=== PATIENT | male | born 1945 | race Caucasian/White ===

== ENCOUNTER 2024-10-09 15:55 | Inpatient (IN) | payer MEDICARE, SELFPAY ==
[2024-10-09] VITALS (18 sets, daily range): BP systolic 101–120; BP diastolic 54–73; PULSE 87–107; RESP 13–25; TEMP 36.4–36.8; O2SAT 89–100; BMI 40.6
--- NOTE | ~2024-10-09 | US_ITS ---
Renal-Bladder ultrasound Clinical History: Left kidney soft tissue density seen on CT Technique: Real-time sonographic imaging of the kidneys and urinary bladder was performed. COMPARISON: CT dated 10/09/2024 Findings: The right kidney measures 10.0 cm in length and the left kidney measures 10.0 cm. There is no hydronephrosis or renal calculus identified. Renal cortical echogenicity is within normal limits. There is a 4.8 x 3.5 x 4.4 cm left lower pole renal mass, not clearly cystic.. The urinary bladder is moderately distended at the time of this exam. No intraluminal echoes are iden tified. No abnormal wall thickening is seen. Impression: 4.8 cm left lower pole renal mass, not definitively cystic. Pre and postcontrast CT or MR recommended to further evaluate. Reviewed, dictated and finalized at [facility]. Impression: 4.8 cm left lower pole renal mass, not definitively cystic. Pre and postcontras t CT or MR recommended to further evaluate.
--- NOTE | ~2024-10-09 | XR_ITS ---
XR chest 1V Ordering provider: Rajinder Comer MD History: 78 years Male with . weakness . Comparison: None. FINDINGS: MEDIASTINUM: The cardiac silhouette is moderately enlarged. Congestive acro. LUNGS: No effusions or pneumothorax. Bilateral interstitial thickening suggestive of pulmonary edema versus pneumonitis. Clinical correlation advised. OTHER: No free air under the diaphragm. Degenerative changes of the spine. IMPRESSION: Cardiomegaly with cardiac decompensation and pulmonary edema. Overlying pneumonitis is not excluded. Reviewed, dictated and finalized at location [facility] IMPRESSION: Cardiomegaly with cardiac decompensation and pulmonary edema. Overlying pneumon itis is not excluded.
--- NOTE | ~2024-10-09 | CT_ITS ---
CT diagnostic chest wo con Ordering provider: Rajinder Comer MD History: 78 years Male with . Concern for pneumonia . Comparison: None. Technique: CT chest without IV contrast. Radiation reduction technique utilized.The dose-length product was 886.55 mGy-cm. FINDINGS: VISUALIZED THORACIC INLET: Normal. MEDIASTINUM: Aorta/coronary arteries: Mild atheromatous disease. Ascending aorta measures 3.7 cm. Heart/other: The heart is not enlarged. Lymph nodes: No mediastinal or hilar adenopathy. 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 LUNGS: Interstitial thickening is seen in the lower lobes which is partly due to dependent atelectati c changes with pneumonitis less likely. Focal atelectasis versus pneumonia in the lingula. No pulmona ry nodules or masses. No effusions. No pneumothorax. VISUALIZED UPPER ABDOMEN: Cholelithiasis. Small sliding hiatus hernia. Atrophic pancreas. Soft tissue density in the left kidney which is possibly a cyst. Ultrasound evaluation advised. Otherwise, the v isualized upper abdomen is normal. MUSCULOSKELETAL: Soft tissues: The superficial soft tissues are normal. Bones: Age appropriate degenerative changes of the spine. IMPRESSION: 1. Dependent atelectatic changes in the lower lobes with possibility of a pneumonitis cannot be excl uded. 2. Focal atelectasis versus pneumonia in the lingula. 3. Cholelithiasis 4. Soft tissue density in the left kidney ultrasound evaluation advised. 5. Small sliding hiatus hernia. Reviewed, dictated and finalized at location [facility] IMPRESSION: 1. Dependent atelectatic changes in the lower lobes with possibility of a pneu monitis cannot be excluded. 2. Focal atelectasis versus pneumonia in the lingula. 3. Cholelithiasis 4. Soft tissue density in the left kidney ultrasound evaluation advised. 5. Small sliding hiatus hernia.
--- NOTE | 2024-10-09 16:00 | ECG_ITS ---
Test Date: 2024-10-09 16:06:47 Measurements Intervals [place] Rate: 92 P: 0 MD: 0 QRS: 63 QRSD: 144 T: 11 QT: 407 QTc: 504 Interpretive Statements ATRIAL FIBRILLATION WITH ABERRANT CONDUCTION RIGHT BUNDLE BRANCH BLOCK [120+ ms QRS DURATION, UPRIGHT V1, 40+ ms S IN I/aVL/V4/V5/V6] ABNORMAL ECG No previous ECG available for comparison Electronically Signed On 10-09-2024 16:09:43 VAN LOADER by Je Valenzuela M.D.
[2024-10-09 16:23] LABS: Basophils Percent Auto 0.6 % (0.2-1.2); Eosinophils Absolute Auto 0.4 K/mm3 (0-0.3); Eosinophils Percent Auto 5.8 % (0-4.4); Hematocrit 42.5 % (42.0-52.0); Hemoglobin 13.5 g/dL (14.0-18.0); Immature Granulocyte Absolute 0.02 K/mm3 (0.00-0.031); Immature Granulocyte Percent A 0.3 % (0-0.5); Lymphocytes Absolute Auto 1.87 K/mm3 (0.9-3.2); Lymphocytes Percent Auto 27.9 % (18.3-44.2); Mean Corpuscular HGB Conc 31.8 g/dl (32-36); Mean Corpuscular Hemoglobin 30.1 pg (26-34); Mean Corpuscular Volume 94.7 fl (80-100); Mean Platelet Volume 10.2 fl (7.4-10.4); Monocytes Absolute Auto 0.9 K/mm3 (0.1-0.6); Monocytes Percent Auto 13.4 % (2.6-8.5); Neutrophils Absolute Auto 3.5 K/mm3 (1.3-6.7); Platelet Count Result 173 k/mm3 (150-375); Red Blood Count 4.49 M/mm3 (4.6-6.20); Red Cell Distribution Width 13.5 % (11.5-14.5); White Blood Count 6.7 K/mm3 (4.5-10.0)
[2024-10-09 16:24] LABS: Add Urine Microscopic? NO; Appearance Urine Clear (Clear); Bilirubin Urine Negative (Negative); Blood Urine Negative (Negative); Color Urine Yellow (Yellow); Glucose Urine UA Negative (Negative); Ketones Urine Negative (Negative); Leukocyte Esterase Ur Negative LEU/UL (Negative); Nitrate Urine Negative (Negative); Protein Urine Negative (Negative); Specific Grav Ur 1.014 (1.001-1.035); Urobilinogen Urine 0.2 mg/dL (<2.0)
--- OUTSIDE RECORDS SUMMARY | 2024-10-09 16:35 | XMS_ITS | Encounter Summary ---
Author Organization [facility] Address [address] [place] [address] Phone Care Team Providers Care Cold Header Name Role Phone Je Kerns MD Primary Care Provider [phone] Booker Sears MD Primary Care Provider [phone] Clemente Gutierrez MD Unavailable Adrian Carr MD Unavailable Shi Farmer Unavailable Unavailable Encounter Details Date Type Department Care Team (Late st Contact Info) Description 04/26/2022 Nursing Facility [facility] [address] [place] [address] Beka Ceron MD [address] [place] [address] Social History Tobacco Use Types Packs/Day Years Used Date Smoking Tobacco: Never Smokeless Tobacco: Never Alcohol Use Standard Drinks/Week Comments Never 0 (1 standard drink = 0.6 oz pur e alcohol) AUDIT-C Answer Date Recorded Q1: How often do you have a drink containing alc ohol? Never 01/14/2020 Average Number of Drinks Not on file 020 Frequency of Binge Drinking Not on file 01/02 PHQ-2 Answer Date Recorded Total Score - Questions 1-9 0 09/04 Sex and Gender Information Value Date Recorded Sex Assigned at Not on file Legal Sex Male 10:20 PM CDT Gender Identity Not on file Sexual Orientation Not on file documented as of this encounter H&P Notes * Mane Figueredo - 04/26/2022 12:29 PM CDT [facility] History and Physical Chief Complaint: fall, generalized weakness requiring rehabilitation. HPI: Saw Christiansen is a 76 y.o. male who is transferred to [facility] from [facility] for post acute care rehabilitation. The patient was admitted to the hospital for generalized weakness due to underlying acute cystitis. His acute condition was treated at the hospital and he was referred to the SNF to improve his strength and mobilization with PT and OT. At the time of this assessment the pt stated that he was not in any pain and that he has been doing well in therapy. He also reported normal appetite and bowel movements. Allergies: is allergic to penicillins. Past Medical History: He has a past medical history of AAA (abdominal aortic aneurysm) ([facility]), Adenomatous colon polyp, C. difficile colitis, Central obesity, CKD (chronic kidney disease) stage 3, UMV58-08 ml/min ([facility]), DM (diabetes mellitus) ([facility]), HLD (hyperlipidemia), HTN (hypertension), and Renal mass. Surgical History: has a past surgical history that includes Ankle Surgery (1972); Rotator Cuff Repair; Colonoscopy (); and Colonoscopy (N/A, 03/03/2020). Social History: reports that he has never smoked. He has never used smokeless tobacco. He reports that he does not drink alcohol and does not use drugs. Family History: family history includes Congestive Heart Failure in his father and mother. Review of Systems: All systems reviewed and are negative except what is mentioned in HPI. Physical Exam: Vital Signs: All vitals were reviewed in the facility EMR and are stable. Exam: General: Well developed, well nourished, in no distress Skin: Normal appearance, normal turgor, no rashes HEENT: Normocephalic, atraumatic, no flaring Eyes: nonicteric, intact extra occular movement, PERRL Neck: normal, supple, no lymphadenopathy Heart: regular rate and rhythm, S1, S2 normal, no murmur, click, rub or gallop Lungs: clear to ausculation, normal respirations, normal precautions Abdominal: soft, non-tender; bowel sounds normal; no masses, no organomegaly : external genitalia normal in appearance Extremities: no deformities, joint mobility appears intact, no clubbing Neuro: Non-focal, CN intact, sensory and motor intact Psychological: alert and oriented X3, appropriate mood and affect, Intact judgement and memory Data Review: Lab Results: Lab Results Component Value Date WBC 6.29 03/21/2022 HEMOGLOBIN 13.2 03/21/2022 HEMATOCRIT 41.2 03/21/2022 PLATELETCNT 171 03/21/2022 MCV 93.8 03/21/2022 Lab Results Component Value Date SODIUM 140 03/21/2022 POTASSIUM 4.1 03/21/2022 CHLORIDE 106 03/21/2022 CO2VEN 20 (L) 03/21/2022 GLUCOSE 100 (H) 03/21/2022 ANIONGAP 18.1 03/21/2022 BUN 32 (H) 03/21/2022 CREATININE 1.54 (H) 03/21/2022 CALCIUM 8.5 (L) 03/21/2022 Lab Results Component Value Date INR 1.3 (H) 03/03/2020 INR 1.3 (H) 03/01/2020 PTP 16.0 (H) 03/03/2020 PTP 16.0 (H) 03/01/2020 Assessment/Plan: 1. Flalls, generalized weakness and decreased balance and mobilization. He is to receive PT and OT at the SNF to improve his strength, balance, and mobilization back to baseline. 2. Acute cystitis. Resolved. Treatment course completed while at the hospital. No further intervention needed at this time. 3. DM Type 2. Currently controlled. Continue management with oral metformin and SSI and continue following a diabetic diet. Check blood glucose regularly and monitor A1C periodically. 4. HTN. BP currently stable. Continue amlodipine and benazepril. 5. BPH. Continue tamsulosin and oxybutynin. 6. CKD Stage 4. Avoid nephrotoxic agents. Continue to monitor the evolution of kidney functioning. 7. Constipation. Continue senna BID. 8. Hypothyroidism. Continue levothyroxine. Check TSH levels periodically. VTE Prophylaxis: Lovenox 40mg Q24h Advance Care Planning: Aggregate uwwo-re-rwmf time, greater than 16 minutes was spent discussing end-of-life care planning with patient/family and/or Power of Drafter Apprentice. Discussed CPR, Intubation, treatment goals, and Quality of life/Intensity of care. Patient desires CPR-Full Treatment IMane, acting as a scribe, am personally taking down the notes in the presence of Dr. Beka Ceron M.D. Take no action on this note until reviewed and authenticated by the physician. By: MANE FIGUEREDO, 04/26/2022, 12:29 PM CDT Primary Care Physician: Je Kerns MD . Cosigned by Beka Ceron MD at 05/03/2022 4:00 PM CDT Associated attestation - Beka Ceron MD - 05/03/2022 4:00 PM CDT I evaluated and examined the patient in the presence of scribe Mane Figueredo and discussed the physical findings and clinical assessment with her and reviewed the medical records and notes above and agree with the content and details of the note. 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 03/20/2022 COVID - 19 03/02/2023 03/02/2023 03/02/2023 10:3 2 PM CDT Respiratory Rule Out - RPA 03/04/2023 03/04/2023 0 03/04/2023 10:23 PM CDT COVID - 19 04/08/2023 04/08/2023 04/08/2023 2:08 PM CDT Assessment Noted Time PHQ-9 Depression Total Score: 0 10/31/19 21 2:24 PM CDT documented as of this encounter Care Teams Cold Header Relationship Specialty Start Date End Date [facility] [address] [place] [address] PCP - General Family Medicine 09/10/17 04/07/23 Booker Sears MD [address] [place] [address] PCP - General Internal Medicine 04/08/23 09/14/24 Clemente Gutierrez MD [address]2 [facility] [address] [place] [address] Consulting Physician Urological Surgery 05/21/23 Adrian Carr MD [address] [place] [address] Consulting Physician Pulmonary Disease 05/12/23 Shi Farmer Health Buffer Operator 08/06/24 08/09/24 documented as of this encounter
--- OUTSIDE RECORDS SUMMARY | 2024-10-09 16:35 | XMS_ITS | Encounter Summary ---
Author Organization [facility] Address [address] [place] [address] Phone Care Team Providers Care Driver Education Instructor Name Role Phone Je Kerns MD Primary Care Provider [phone] Booker Sears MD Primary Care Provider [phone] Clemente Gutierrez MD Unavailable Adrian Carr MD Unavailable Shi Farmer Unavailable Unavailable Encounter Details Date Type Department Care Team (Late st Contact Info) Description 09/10/2022 Nursing Facility [facility] [address] [place] [address] Ryan Dinero, PAC [address] [place], [place] [id number] Social History Tobacco Use Types Packs/Day Years [...] on file documented as of this encounter Progress Notes * Ryan Dniero, PAC - 09/10/2022 2:03 PM CST [facility] N[facility] PROGRESS NOTE Saw Christiansen is a 76 y.o. male at [facility] for long-term care. Was hospitalized at [facility] from March 20 through March 22 for generalized weakness and frequent falls, there was concern for UTI during hospitalization as urine culture grew outMRSA but this was felt to be asymptomatic bacteriuria. Was transferred to an outside fpc facility but ultimately did not regain enough ambulation to be discharged back to home so was transferred to this nursing facility on 04/19/2022 for long-term care and also to be with his who is a current long-term resident here. Subjective: Interval History: I am seeing the patient today for routine monthly assisted visit He is lying comfortably in bed says that he feels ???fine?? . No acute symptoms or concerns. Denies any pain or GI symptoms. Says he has good appetite. Nursing staff has no concerns about the patient. Past Medical History Positives Diagnosis Date ??? AAA (abdominal aortic aneurysm) ([facility]) ??? Adenomatous colon polyp ??? C. difficile colitis ??? Central obesity ??? CKD (chronic kidney disease) stage 3, GFR 30-59 ml/min ([facility]) ??? DM (diabetes mellitus) ([facility]) ??? HLD (hyperlipidemia) ??? HTN (hypertension) ??? Renal mass Family History Problem Relation Age of Onset ??? Congestive Heart Failure Mother ??? Congestive Heart Failure Father Social History Socioeconomic History ??? Marital status: Spouse name: Not on file ??? Number of children: Not on file ??? Years of education: Not on file ??? Highest education level: Not on file Occupational History ??? Not on file Tobacco Use ??? Smoking status: Never ??? Smokeless tobacco: Never Vaping Use ??? Vaping Use: Never used Substance and Sexual Activity ??? Alcohol use: Never ??? Drug use: No ??? Sexual activity: Not on file Other Topics Concern ??? Not on file Social History Narrative ??? Not on file Past Surgical History: Procedure Laterality Date ??? ANKLE SURGERY 1973 ??? COLONOSCOPY -2004 ??? COLONOSCOPY N/A 03/03/2020 Procedure: COLONOSCOPY - PROXIMAL TRANSVERSE COLON POLYP, RECTAL BIOPSIES, PSEUDOMEMBRANOUS COLITIS; Surgeon: Dajuan Garcia DO; Location: [facility] GI [facility]; Service: Gastroenterology ??? ROTATOR CUFF REPAIR Review of Systems: A 14 point comprehensive review of systems was negative except what is documented in interval history above. Objective: Exam: Vital Signs: B/P: 128/70 Pulse: 65 Respirations: 18 Temperature: 97.9 General: Well developed, well nourished, in no [...] bowel sounds normal; no masses, no organomegaly Extremities: no deformities, joint mobility appears intact, no clubbing Neuro: Non-focal, CN intact, sensory and motor intact Psychological: alert and oriented X3, appropriate mood and affect, Intact judgement and memory Lab Results: 03/21 during hospitalization, creatinine was 1.5, BUN 32, GFR 46 otherwise unremarkable. A1c was 5.5on 03/20. CBC unremarkable on 03/21. Imaging: PROCEDURE: DUPLEX SCAN OF AORTA LTD STATUS: Final INTERPRETATION: Reason for Study: I71.9 AORTIC ANEURYSM OF UNSPECIFIED SITE, WITHOUT RUPTURE Principal Result French Binder: LIDIA BEGUM ([id number]) Crm System Administrator: JOSE ALFREDO SANFORD (CJALAFF) Venue Coordinator Crm System Administrator: MABEL DUPLEX SCAN OF AORTA LTD FINDINGS: aneurysm. FINDINGS: Proximal 2.2 0.4 x 2.2 cm Mid4.5 x 4.5 cm. The distal aorta, right and left iliac arteries could not be seen. CONCLUSION: Aneurysmal dilatation in the midportion of the aorta. The distal aorta and iliac vessels are not seen. Blood flow within the proximal and mid aorta appear within normal limits. ELECTRONICALLY SIGNED BY LIDIA BEGUM M.D. 07/05/2022 5:53:31 AM ROTARY DRIER. Assessment/Plan: Hypothyroidism Continue levothyroxine Monitor thyroid levels periodically 09/10: Will check thyroid levels tomorrow along with baseline labs and A1c. Hypertension Continue amlodipine and benazepril Monitor blood pressures 09/10: Well controlled Abdominal aortic aneurysm CT from 04/18/2021 shows AAA measured at 4.7 cm. 07/24 - ultrasound from 07/05 showing AAA of 4.5 cm. No need for surgical consultation at this time. Repeat ultrasound annually. Surgical referral if aneurysm lester to 5.0 cm or greater Generalized weakness and deconditioning Receiving assisted care Is currently able to transition himself from the bed to the wheelchair without assistance. Needs assistance with toileting. Diabetes mellitus type 2 A1c of 5.5 on 03/20 Continue current regimen of metformin (will need to be adjusted if CKD progresses to stage IV.) Chronic kidney disease stage 3 Avoid nephrotoxic agents Monitor labs periodically BPH Continue Flomax and oxybutynin Well controlled VTE Prophylaxis: Activity I discussed advanced care planning with this patient. This note was dictated using [employer] fluency dictation system and there may be errors in rn endoscopy. Despite proof reading the note, there may be mistakes and I apologize for those. By: Ryan Dinero, AN, 09/10/2022 2:03 PM ROTARY DRIER RY DRIER documented in this encounter Plan of Treatment [...] documented as of this encounter Care Teams Driver Education Instructor Relationship Specialty Start Date End Date Je Kerns MD #2 [facility] [address] [place] [address] PCP - General Family Medicine 09/10/17 04/07/23 Booker Sears MD [address] [place] [address] PCP - General Internal Medicine 04/08/23 09/14/24 Clemente Gutierrez MD #2 [facility] [address] [place] [address] Consulting Physician Urological Surgery 05/21/23 Adrian Carr MD [address] [place] [address] Consulting Physician Pulmonary Disease 05/12/23 Shi Farmer Health Senior Engineering Specialist 08/06/24 08/09/24 documented as of this encounter
--- OUTSIDE RECORDS SUMMARY | 2024-10-09 16:35 | XMS_ITS | Encounter Summary ---
Author Organization [facility] Address [address] [place] [address] Phone Care Team Providers Care Adhesive Bandage Making Operator Name Role Phone Je Kerns MD Primary Care Provider [phone] Booker Sears MD Primary Care Provider [phone] Clemente Gutierrez MD Unavailable Adrian Carr MD Unavailable Shi Farmer Unavailable Unavailable Encounter Details Date Type Department Care Team (Late st Contact Info) Description 12/11/2022 Nursing Facility [facility] [address] [place] [address] Ryan Dinero, PAC [address] [place], [place] [address] Social History Tobacco Use Types Packs/Day Years [...] of this encounter Progress Notes * Ryan Dinero, PAC - 12/11/2022 12:20 PM CDT [facility] PROGRESS NOTE Saw Christiansen is a 77 y.o. male at [facility] for long-term care. Was hospitalized at [facility] from March 20 through March 22 for generalized weakness and frequent falls, there was concern for UTI during hospitalization as urine culture grew outMRSA but this was felt to be asymptomatic bacteriuria. Was transferred to an outside senior care facility but ultimately did not regain enough ambulation to be discharged back to home so was transferred to this nursing facility on 04/19/2022 for long-term care and also to be with his who is a current long-term resident here. Subjective: Interval History: Seeing patient for routine monthly usp visit. He is lying comfortably in bed. Says that he feels ???good?? . Denies any acute pain or any medicalsymptoms at this time. His lower extremity edema is improving. He is not having any shortness of breath. Has stress test scheduled for later this week as part of his preoperative clearance for his AAA repair. \ Past Medical History Positives Diagnosis Date ??? AAA (abdominal aortic aneurysm) (HCC) ??? Adenomatous colon polyp ??? C. difficile colitis ??? Central obesity ??? CKD (chronic kidney disease) stage 3, GFR 30-59 ml/min (HCC) ??? DM (diabetes mellitus) (H[facility]) ??? HLD (hyperlipidemia) ??? HTN (hypertension) ??? [...] PSEUDOMEMBRANOUS COLITIS; Surgeon: Dajuan Garcia DO; Location: [facility] GI [facility]; Service: Gastroenterology ??? ROTATOR CUFF REPAIR Review of Systems: A 14 point comprehensive review of systems was negative except what is documented in interval history above. Objective: Exam: Vital Signs: B/P: 128/68 Pulse: 76 Respirations: 16 Temperature: 97 General: Well developed, well nourished, in no [...] deformities, joint mobility appears intact, no clubbing - 5/10: Nonpitting edema ofboth lower extremities up to proximal lorenzo Neuro: Non-focal, CN intact, sensory and motor intact Psychological: alert and oriented X3, appropriate mood and affect, Intact judgement and memory Lab Results: 03/21 during hospitalization, creatinine was 1.5, BUN 32, GFR 46 otherwise unremarkable. A1c was 5.5on 03/20. CBC unremarkable on 03/21. 09/11/2022: CMP with glucose 154, creatinine 1.5, BUN 40 otherwise unremarkable. CBC with hemoglobin 13.6 otherwise unremarkable. A1c 5.3. Thyroid levels within normal limits. Imaging: PROCEDURE: DUPLEX SCAN OF AORTA LTD STATUS: Final for INTERPRETATION: Reason for Study: I71.9 AORTIC ANEURYSM OF UNSPECIFIED SITE, WITHOUT RUPTURE Principal Result Oracle Apex Developer: LIDIA BEGUM ([id number]) Welder First Class: JOSE ALFREDO SANFORD (CJALAFF) Dishwasher Busser Welder First Class: MABEL DUPLEX SCAN OF AORTA LTD FINDINGS: [...] BY LIDIA BEGUM M.D. 07/05/2022 5:53:31 AM DELIVERY CREW MEMBER. Assessment/Plan: Acute mild Bilateral lower extremity edema 11/20: CHF verses venous insufficiency versus arrhythmia versus hypertension. Normal sinus rhythm today. Will start on low-dose furosemide with low-dose potassium supplementation. Already has cardiac workup scheduled for next month as part of preoperative clearance. 12/11: Improving. Continue current regimen. Abdominal aortic aneurysm CT from 04/18/2021 shows AAA measured at 4.7 cm. 11/20: Had cardiology follow-up with Dr. Betancur on 09/10/2022 who obtained results from CT abdomen on08/29/[address] Betancur are planning for stress test and echo and referral to Dr. García for possible EVAR. Will need to follow-up with but are after these tests are completed. Had follow-up with Dr. García, on 10/28/2022 who was planning on surgical intervention at [facility] was hospital once cleared by Dr. Betancur. 12/11: Has stress test tomorrow as part of preoperative clearance Renal mass On CT from 08/29/2022 a 4.7 x 3.7 cm left renal mass was incidentally found, Most likely representing a cyst. Will need to compared to previous studies, may need another CT for repeat imaging. -on medical record review, CT of abdomen on 04/18/2021 showed left renal mass of [address] of abdomen from 03/01/2020 showed 4.5 cm left renal mass. So This appears to be a stable benign mass. Diabetes mellitus type 2 A1c of 5.5 on 03/20 Continue current regimen of metformin (will need to be adjusted if CKD progresses to stage IV.) 10/11: A1c of 5.3 last month. Considering this will discontinue metformin and recheck A1c in about 3months. Hypothyroidism Continue levothyroxine Monitor thyroid levels periodically Thyroid levels within normal limits on 09/11/2022 Hypertension Continue amlodipine and benazepril Monitor blood pressures 10/11: Well controlled Generalized weakness and deconditioning Receiving usp care Is currently able to transition himself from the bed to the wheelchair without assistance. Needs assistance with toileting. Chronic kidney disease stage 3 Avoid nephrotoxic agents Monitor labs periodically BPH Continue Flomax and oxybutynin Well controlled VTE Prophylaxis: Activity I discussed advanced care planning with this patient. This note was dictated using [employer] fluency dictation system and there may be errors in pricer bagger. Despite proof reading the note, there may be mistakes and I apologize for those. By: Ryan Dinero, PAC, 12/11/2022 12:20 PM CDT documented in this encounter Plan of Treatment [...] documented as of this encounter Care Teams Adhesive Bandage Making Operator Relationship Specialty Start Date End Date Je Kerns MD #[address] [address] PCP - General Family Medicine 09/10/17 04/07/23 Booker Sears MD [address] [place] [address] PCP - General Internal Medicine 04/08/23 09/14/24 Clemente Gutierrez MD [address] [address] Consulting Physician Urological Surgery 05/21/23 Adrian Carr MD [address] [place] [address] Consulting Physician Pulmonary Disease 05/12/23 Shi [facility] Operations Center Technician 08/06/24 08/09/24 documented as of this encounter
--- OUTSIDE RECORDS SUMMARY | 2024-10-09 16:35 | XMS_ITS | Encounter Summary ---
Author Organization [facility] Address [address] [place] [address] Phone Care Team Providers Care Meter Shop Superintendent Name Role Phone Je Kerns MD Primary Care Provider [phone] Booker Sears MD Primary Care Provider [phone] Clemente Gutierrez MD Unavailable Adrian Carr MD Unavailable Shi Farmer Unavailable Unavailable Reason for Visit * Reason Comments Medication Refill Encounter Details Date Type Department Care Team (Late st Contact Info) Description 08/27/2020 Refill [facility] [address] [id number] Je Kerns MD #[address] [address] Medication Refill Social History Tobacco Use Types Packs/Day Years Used Date Smoking Tobacco: Never Smokeless Tobacco: Never Alcohol Use Standard Drinks/Week Comments Never 0 (1 standard drink = 0.6 oz pur e alcohol) AUDIT-C Answer Date Recorded Q1: How often do you have a drink containing alc ohol? Never 01/14/2020 Average Number of Drinks Not on file 06/12/2 020 Frequency of Binge Drinking Not on file 01/02 PHQ-2 Answer Date Recorded Total Score - Questions 1-9 0 12/03 Sex and Gender Information Value Date Recorded Sex Assigned at Not on file Legal Sex Male 10:20 PM CDT Gender Identity Not on file Sexual Orientation Not on file documented as of this encounter Miscellaneous Notes * Telephone Encounter - Je Kerns MD - 08/28/2020 12:02 PM CST Prescription approved. Please call in CTOR OF TEENAGE ACTIVITIES * Telephone Encounter - Lillian Goff RN - 08/28/2020 11:42 AM CST Per nursing clinical judgement, provider to review and approve the medication(s) order(s) if appropriate. 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 COVID - 19 03/20/2022 03/20/2022 03/21/2022 9:19 AM CDT 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 03/20/2022 COVID - 19 03/02/2023 03/02/2023 03/02/2023 10:3 2 PM CDT Respiratory Rule Out - RPA 03/04/2023 03/04/2023 0 03/04/2023 10:23 PM CDT COVID - 19 04/08/2023 04/08/2023 04/08/2023 2:08 PM CDT Assessment Noted Time PHQ-9 Depression Total Score: 0 12/22/19 8:47 AM CDT documented as of this encounter Care Teams Meter Shop Superintendent Relationship Specialty Start Date End Date Je Kerns MD #2 [facility] [address] [place] [address] PCP - General Family Medicine 09/10/17 04/07/23 Booker Sears MD [address] [place] [address] PCP - General Internal Medicine 04/08/23 09/14/24 Clemente Gutierrez MD #[address] [facility] [address] [place] [address] Consulting Physician Urological Surgery 05/21/23 Adrian Carr MD #2 [place] [phone] Consulting Physician Pulmonary Disease 05/12/23 Shi Farmer Health Continuous Mining Machine Lode Miner 08/06/24 08/09/24 documented as of this encounter
--- OUTSIDE RECORDS SUMMARY | 2024-10-09 16:35 | XMS_ITS | Encounter Summary ---
Author Organization [facility] Address [address] [place] [address] Phone Care Team Providers Care Wastewater Process Engineer Name Role Phone Je Kerns MD Primary Care Provider [phone] Booker Sears MD Primary Care Provider [phone] Clemente Gutierrez MD Unavailable Adrian Carr MD Unavailable Shi Farmer Unavailable Unavailable Encounter Details Date Type Department Care Team (Late st Contact Info) Description 12/18/2022 Nursing Facility [facility] [address] [place] [address] Rayn Dinero, PAC [address] [place], [place] [id number] Social History Tobacco Use Types Packs/Day Years [...] this encounter Progress Notes * Ryan Dinero, AN - 12/18/2022 2:32 PM CDT [facility] DISCHARGE SUMMARY Name: Saw Christiansen Age: 77 y.o. : 1945 Attending Physician: No att. providers found Admission Date/Time: (Not on file) Expected Discharge Date: Primary Care Physician: Je Kerns MD Discharging Provider: AN Bynum INSTRUCTIONS FOR PHYSICIANS ON FOLLOW UP AFTER DISCHARGE: Follow-up with PCP in 1-2 weeks Discharge Instructions: Discharge Condition: not changed Disposition: Custodial Diet: Cardiac Diet Activity: activity as tolerated Discharge Diagnoses: Generalized weakness and deconditioning, hypertension, hyperlipidemia, chronickidney disease stage 3, BPH, diabetes mellitus type 2, abdominal aortic aneurysm Admitting Diagnoses: Generalized weakness and deconditioning, hypertension, hyperlipidemia, chronickidney disease stage 3, BPH, diabetes mellitus type 2 SKILLED CARE COURSE: Saw Christiansen was admitted to [facility] facility for acute care rehabilitation. Prior to coming to this facility he was hospitalized at [facility] from March 20 through March 22 for generalized weakness and frequent falls, there was concern for UTI during hospitalization as urine culture grew out MRSA but this was felt to be asymptomatic bacteriuria. Was transferred to an outside usp facility but ultimately did not regain enough ambulation to be discharged back to home so was transferred to this nursing facility on 04/19/2022 for long-term care and also to be with his who is a current long-term resident here. While at the rehabilitation facility, the patient received assisted care. His stay the facility was overall uncomplicated. Earlier this year he was referred to Cardiology for follow-up of his AAA. He is being followed by Dr. Betancur who just had stress test done on 12/12/2022 and has granted cardiac clearance. Will need tofollow-up with vascular surgeon Dr. García for intervention. Patient is currently lying comfortably in bed. Says he feels ???good?? . He has no acute symptoms or concerns this time. Chart review shows that his follow-up visit with the vascular surgeon has not been made as of yet. Had a long conversation with the patient that since he is going to be transferring facilities he may have to follow-up on this himself. Also informed his about this as well. Exam Day of Discharge: Vital Signs: B/P: 128/68 Pulse: 70 Respirations: 18 Temperature: 97 General: Well developed, well nourished, [...] and affect, Intact judgement and memory Lab / Imaging Review: Lab Results: 03/21 during hospitalization, creatinine was [...] OF UNSPECIFIED SITE, WITHOUT RUPTURE Principal Result Geothermal Powerplant Mechanic Helper: LIDIA BEGUM ([id number]) Soils Technician: JOSE ALFREDO SANFORD (CJALAFF) Weaver Hand Loom Soils Technician: MABEL DUPLEX SCAN OF AORTA LTD FINDINGS: [...] BY LIDIA BEGUM M.D. 07/05/2022 5:53:31 AM CHECK PILOT. DISCHARGE PLAN: Patient will be transferring to [facility] in [facility]. Tentative discharge date is 12/27/2022. Will be moving there for long-term care and his will be going there with him. Understands to continue all current medications as directed and follow up with PCP/house in 1-2 weeks. Follow-up with vascular surgery Dr. García without fail. I have spent time coordinating care for this usp facility discharge: Greater than 30 minutes spent in coordinating care This note was dictated using [employer] fluency dictation system and there may be errors in sponge clipper. Despite proof reading the note, there may be mistakes and I apologize for those. Signed: AN Bynum, 12/18/2022, 2:32 PM CDT documented in this encounter Plan [...] documented as of this encounter Care Teams Wastewater Process Engineer Relationship Specialty Start Date End Date Je Kerns MD #2 [facility] [address] [place] [address] PCP - General Family Medicine 09/10/17 04/07/23 Booker Sears MD [address] [place] [address] PCP - General Internal Medicine 04/08/23 09/14/24 Clemente Gutierrez MD #2 [facility] [address] [place] [phone] Consulting Physician Urological Surgery 05/21/23 Adrian Carr MD #2 [facility] [place] [phone] Consulting Physician Pulmonary Disease 05/12/23 Shi Farmer Health Inspector Mechanical 08/06/24 08/09/24 documented as of this encounter
--- OUTSIDE RECORDS SUMMARY | 2024-10-09 16:35 | XMS_ITS | Encounter Summary ---
Author Organization [facility] Address [address] [place] [address] Phone Care Team Providers Care Wood And Wood Products Labourer Name Role Phone Je Kerns MD Primary Care Provider [phone] Booker Sears MD Primary Care Provider [phone] Clemente Gutierrez MD Unavailable Adrian Carr MD Unavailable Shi Farmer Unavailable Unavailable Encounter Details Date Type Department Care Team (Late st Contact Info) Description 06/05/2022 Nursing Facility [facility] [address] [place] [address] Ryan Dinero, PAC [address] [place], [place] [address] Social History Tobacco Use Types Packs/Day Years [...] Progress Notes * Ryan Dinero, PAC - 06/05/2022 1:07 PM CDT [facility] PROGRESS NOTE Saw Christiansen is a 76 y.o. male at [facility] for long-term care. Was hospitalized at [facility] from March 20 through March 22 for generalized weakness and frequent falls, there was concern for UTI during hospitalization as urine culture grew outMRSA but this was felt to be asymptomatic bacteriuria. [facility] but ultimately did not regain enough ambulation to be discharged back to home so was transferred to this nursing facility on 04/19/2022 for long-term care and also to be with his who is a current long-term resident here. Subjective: Interval History: I am seeing patient for routine monthly assisted visit He is lying comfortably in bed. Denies any acute symptoms or concerns. Says he feels ???fine?? . Past Medical History Positives Diagnosis Date ??? AAA (abdominal aortic aneurysm) ([facility]) ??? Adenomatous colon polyp ??? C. difficile colitis ??? Central obesity ??? CKD (chronic kidney disease) stage 3, GFR 30-59 ml/min ([facility]) ??? DM (diabetes mellitus) ([facility]) ??? HLD (hyperlipidemia) ??? HTN (hypertension) ??? [...] file Tobacco Use ??? Smoking status: Never Smoker ??? Smokeless tobacco: Never Used Vaping Use ??? Vaping Use: Never used Substance and Sexual Activity ??? Alcohol use: Never ??? Drug use: No ??? Sexual activity: Not on file Other Topics Concern ??? Not on file Social History Narrative ??? Not on file Past Surgical History: Procedure Laterality Date ??? ANKLE SURGERY 1973 ??? COLONOSCOPY ??? COLONOSCOPY N/A 03/03/2020 Procedure: COLONOSCOPY - PROXIMAL TRANSVERSE COLON POLYP, RECTAL BIOPSIES, PSEUDOMEMBRANOUS COLITIS; Surgeon: Dajuan Garcia DO; Location: [facility]; Service: Gastroenterology ??? ROTATOR CUFF REPAIR Review of Systems: A 14 point comprehensive review of systems was negative except what is documented in interval history above. Objective: Exam: Vital Signs: B/P: 116/66 Pulse: 68 Respirations: 18 Temperature: 98 General: Well developed, well nourished, in no [...] 5.5on 03/20. CBC unremarkable on 03/21. Imaging: None Assessment/Plan: Abdominal aortic aneurysm CT from 04/18/2021 shows AAA measured at 4.7 cm. 06/05 - patient says he is not followed by specialist for this. Referral placed to Dr. Betancur (cardiology). Generalized weakness and deconditioning Receiving assisted care Is currently able to transition himself from the bed to the wheelchair without assistance. Needs assistance with toileting. Diabetes mellitus type 2 A1c of 5.5 on 03/20 Continue current regimen of metformin (will need to be adjusted if CKD advantages to stage IV.) Chronic kidney disease stage 3 Avoid nephrotoxic agents Monitor labs periodically Hypothyroidism Continue levothyroxine Monitor thyroid levels periodically BPH Continue Flomax and oxybutynin Well controlled Hypertension Continue amlodipine and benazepril Monitor blood pressures Well controlled VTE Prophylaxis: Activity I discussed advanced care planning with this patient. This note was dictated using [employer] fluency dictation system and there may be errors in executive director of nursing. Despite proof reading the note, there may be mistakes and I apologize for those. By: Ryan Dinero, PAC, 06/05/2022 1:08 PM CDT documented in this encounter Plan [...] documented as of this encounter Care Teams Wood And Wood Products Labourer Relationship Specialty Start Date End Date Je Kerns MD #2 [facility] [address] [place] [address] PCP - General Family Medicine 09/10/17 04/07/23 Booker Sears MD [address] [place] [address] PCP - General Internal Medicine 04/08/23 09/14/24 Clemente Gutierrez MD #2 [facility] [address] [place] [address] Consulting Physician Urological Surgery 05/21/23 Adrian Carr MD #2 [place] [phone] Consulting Physician Pulmonary Disease 05/12/23 Shi Farmer [facility] Hospital Director 08/06/24 08/09/24 documented as of this encounter
--- OUTSIDE RECORDS SUMMARY | 2024-10-09 16:35 | XMS_ITS | Encounter Summary ---
Author Organization [facility] Address [address] [place] [address] Phone Care Team Providers Care Test Automation Architect Name Role Phone Je Kerns MD Primary Care Provider [phone] Booker Sears MD Primary Care Provider [phone] Clemente Gutierrez MD Unavailable Adrian Carr MD Unavailable Shi Farmer Unavailable Unavailable Reason for Visit * Reason Comments Medication Refill Encounter Details Date Type Department Care Team (Late st Contact Info) Description 02/05/2021 Refill [facility] - Family Medicine [facility] [address] [place] [address] Je Kerns MD #[address] [address] Medication Refill Social History Tobacco Use Types [...] Recorded Total Score - Questions 1-9 0 10/03 Sex and Gender Information Value Date Recorded Sex Assigned at Not on file Legal Sex Male 10:20 PM CDT Gender Identity Not on file Sexual Orientation Not on file documented as of this encounter Miscellaneous Notes * Telephone Encounter - Je Kerns MD - 02/06/2021 1:10 PM CDT Prescription approved. Please call in * Telephone Encounter - Sheila Loera RN - 02/06/2021 1:09 PM CDT Medication failed the protocol, provider to review and approve the medication order if appropriate. Requested Prescriptions Pending Prescriptions Disp Refills benazepril (LOTENSIN) 20 MG Tablet [Pharmacy Med Name: BENAZEPRIL HCL 20 MG TABLET] 90 Tablet 1 Sig: TAKE ONE TABLET BY MOUTH ONCE DAILY ELIANA Inhibitors Protocol Passed - 02/05/2021 7:46 PM Passed - Serum potassium on record in past 12 months POTASSIUM Date Value Ref Range Status 05/31/2020 4.6 3.5 - 5.1 mmol/L Final Passed - Blood pressure on record in past 12 months Clinician-entered: BP Readings from Last 3 Encounters: 10/30/20 110/68 05/31/20 108/70 03/17/20 110/64 Patient-entered: No data recorded Passed - Visit with relevant provider in past 12 months or upcoming 90 days Recent Visits Date Type Provider Dept 10/30/20 Office Visit Je Kerns MD [facility] 05/31/20 Office Visit Je Kerns MD [facility] 03/17/20 Office Visit Sil Naidu PAC [facility] Showing recent visits within past 365 days and meeting all other requirements Future Appointments Date Type Provider Dept 03/08/21 Appointment Je Kerns MD [facility] Showing future appointments within next 90 days and meeting all other requirements Passed - GFR on record in past 12 months GFR, EST. NONAFRICAN Date Value Ref Range Status 05/31/2020 45 (L) >=60 Final documented in this encounter Plan of Treatment [...] documented as of this encounter Care Teams Test Automation Architect Relationship Specialty Start Date End Date Je Kerns MD #[address] [address] PCP - General Family Medicine 09/10/17 04/07/23 Booker Sears MD [address] [place] [address] PCP - General Internal Medicine 04/08/23 09/14/24 Clemente Gutierrez MD #[address] [address] Consulting Physician Urological Surgery 05/21/23 Adrian Carr MD #2 [place] [address] Consulting Physician Pulmonary Disease 05/12/23 Shi Farmer Health Napkin Band Wrapper 08/06/24 08/09/24 documented as of this encounter
--- OUTSIDE RECORDS SUMMARY | 2024-10-09 16:35 | XMS_ITS | Encounter Summary ---
Author Organization [facility] Address [address] [place] [address] Phone Care Team Providers Care Controls Design Engineer Name Role Phone Je Kerns MD Primary Care Provider [phone] Booker Sears MD Primary Care Provider [phone] Clemente Gutierrez MD Unavailable Adrian Carr MD Unavailable Shi Farmer Unavailable Unavailable Encounter Details Date Type Department Care Team (Late st Contact Info) Description 07/24/2022 Nursing Facility [facility] [address] [place] [address] Ryan Dinero, PAC [address] [place], [place] [id number] Social History Tobacco Use Types Packs/Day Years [...] Progress Notes * Ryan Dinero, PAC - 07/24/2022 12:59 PM CST [facility] PROGRESS NOTE Saw Christiansen is a 76 y.o. male at [facility] for long-term care. Was hospitalized at [facility] from March 20 through March 22 for generalized weakness and frequent falls, there was concern for UTI during hospitalization as urine culture grew outMRSA but this was felt to be asymptomatic bacteriuria. Was transferred to an outside snf facility but ultimately did not regain enough ambulation to be discharged back to home so was transferred to this nursing facility on 04/19/2022 for long-term care and also to be with his who is a current long-term resident here. Subjective: Interval History: I am seeing the patient acutely today with concerns for a cough. Patient reports that for the last few days he has had a cough that is primarily nonproductive. Also missed a sinus congestion and frontal headache. Admits to feeling fatigued. He denies any sore throat, fevers, shortness of breath or any GI symptoms. Past Medical History Positives Diagnosis Date ??? AAA (abdominal aortic aneurysm) ([facility]) ??? Adenomatous colon polyp ??? C. difficile colitis ??? Central obesity ??? CKD (chronic kidney disease) stage 3, GFR 30-59 ml/min ([facility]) ??? DM (diabetes mellitus) ([facility]) ??? HLD (hyperlipidemia) ??? HTN (hypertension) [...] PSEUDOMEMBRANOUS COLITIS; Surgeon: Dajuan Garcia DO; Location: [facility]; Service: Gastroenterology ??? ROTATOR CUFF REPAIR Review of Systems: A 14 point comprehensive review of systems was negative except what is documented in interval history above. Objective: Exam: Vital Signs: B/P: 116/66 Pulse: 82 Respirations: 17 Temperature: 98 General: Well developed, well nourished, [...] OF UNSPECIFIED SITE, WITHOUT RUPTURE Principal Result Manager Surgical: LIDIA BEGUM ([id number]) Sales Representative Sales Manager: JOSE ALFREDO SANFORD (CJALAFF) Obgyn Hospitalist Physician Sales Representative Sales Manager: MABEL DUPLEX SCAN OF AORTA LTD FINDINGS: [...] BY LIDIA BEGUM M.D. 07/05/2022 5:53:31 AM LAWYER. Assessment/Plan: Viral upper respiratory syndrome 07/24 - symptomatic care at this time with p.r.n. cough medicine, of Flonase and antihistamines. Will check a chest x-ray and COVID-19 test. Encouraged rest and hydration. Should be feeling better inabout a week. Patient and/or nurse to for me if symptoms persist or get worse. Abdominal aortic aneurysm CT from 04/18/2021 shows AAA measured at 4.7 cm. 06/05 - patient says he is not followed by specialist for this. Referral placed to Dr. Betancur (cardiology). 07/03- I do not see any cardiology appointment scheduled yet in the computer and patient is unawareof any as well. Abdominal ultrasound ordered for surveillance. Her a 07/24 - ultrasound from 07/05 showing AAA of 4.5 cm. No need for surgical consultation at this time. Repeat ultrasound annually. Surgical referral if aneurysm lester to 5.0 cm or greater Generalized weakness and deconditioning Receiving shelter care Is currently able to transition himself [...] this patient. This note was dictated using [employer] fluency dictation system and there may be errors in surveillance director. Despite proof reading the note, there may be mistakes and I apologize for those. By: AN Bynum, 07/24/2022 1:09 PM LAWYER ER documented in this encounter Plan of Treatment [...] documented as of this encounter Care Teams Controls Design Engineer Relationship Specialty Start Date End Date Je Kerns MD #2 [facility] [address] [place] [address] PCP - General Family Medicine 09/10/17 04/07/23 Booker Sears MD [address] [place] [address] PCP - General Internal Medicine 04/08/23 09/14/24 Clemente Gutierrez MD #2 [facility] [address] [place] [address] Consulting Physician Urological Surgery 05/21/23 Adrian Carr MD #2 [place] [phone] Consulting Physician Pulmonary Disease 05/12/23 Shi Farmer Health Mergers And Acquisitions Manager 08/06/24 08/09/24 documented as of this encounter
--- OUTSIDE RECORDS SUMMARY | 2024-10-09 16:35 | XMS_ITS | Encounter Summary ---
Author Organization [facility] Address [address] [place] [address] Phone Care Team Providers Care Adding Machine Mechanic Name Role Phone Je Kerns MD Primary Care Provider [phone] Booker Sears MD Primary Care Provider [phone] Clemente Gutierrez MD Unavailable Adrian Carr MD Unavailable Shi Farmer Unavailable Unavailable Encounter Details Date Type Department Care Team (Late st Contact Info) Description 10/11/2022 Nursing Facility [facility] LONG TERM SERVICES [address] [place] [address] Ryan Dinero, PAC [address] [place], [place] [id number] Social History Tobacco Use Types Packs/Day Years [...] Progress Notes * Ryan Dinero, PAC - 10/11/2022 3:29 PM CST [facility] NURSING PROGRESS NOTE Saw Christiansen is a 76 y.o. male at [facility] for long-term care. Was hospitalized at [facility] from March 20 through March 22 for generalized weakness and frequent falls, there was concern for UTI during hospitalization as urine culture grew outMRSA but this was felt to be asymptomatic bacteriuria. Was transferred to an outside assisted facility but ultimately did not regain enough ambulation to be discharged back to home so was transferred to this nursing facility on 04/19/2022 for long-term care and also to be with his who is a current long-term resident here. Subjective: Interval History: I am seeing the patient today for routine monthly halfway visit Patient is lying comfortably in bed. Says that he feels ???good?? . Has had a mild cough for several weeks now but no other upper respiratory symptoms or shortness of breath or any systemic symptoms. Feeling well otherwise. Nursing staff has no concerns about the patient. Past Medical History Positives Diagnosis Date ??? AAA (abdominal aortic aneurysm) ([facility]) ??? Adenomatous colon polyp ??? C. difficile colitis ??? Central obesity ??? CKD (chronic kidney disease) stage 3, GFR 30-59 ml/min ([facility]) ??? DM (diabetes mellitus) ([facility]) ??? HLD (hyperlipidemia) ??? HTN (hypertension) ??? [...] PSEUDOMEMBRANOUS COLITIS; Surgeon: Dajuan Garcia DO; Location: [facility]; Service: Gastroenterology ??? ROTATOR CUFF REPAIR Review of Systems: A 14 point comprehensive review of systems was negative except what is documented in interval history above. Objective: Exam: Vital Signs: B/P: 128/76 Pulse: 68 Respirations: 20 Temperature: 97.2 General: Well developed, well nourished, in no [...] OF UNSPECIFIED SITE, WITHOUT RUPTURE Principal Result Correctional Food Service Supervisor: LIDIA BEGUM ([id number]) Menagerie Superintendent: JOSE ALFREDO SANFORD (CJALAFF) Insemination Worker Menagerie Superintendent: MABEL DUPLEX SCAN OF AORTA LTD FINDINGS: [...] BY LIDIA BEGUM M.D. 07/05/2022 5:53:31 AM CLERICAL SPECIALIST. Assessment/Plan: Diabetes mellitus type 2 A1c of 5.5 [...] benazepril Monitor blood pressures 10/11: Well controlled Abdominal aortic aneurysm CT from 04/18/2021 shows AAA measured at 4.7 cm. 07/24 - ultrasound from 07/05 showing AAA of 4.5 cm. No need for surgical consultation at this time. Repeat ultrasound annually. Surgical referral if aneurysm lester to 5.0 cm or greater Generalized weakness and deconditioning Receiving halfway care Is currently able to transition himself from the bed to the wheelchair without assistance. Needs assistance with toileting. Chronic kidney disease stage 3 Avoid nephrotoxic agents Monitor labs periodically BPH Continue Flomax and oxybutynin Well controlled VTE Prophylaxis: Activity I discussed advanced care planning with this patient. This note was dictated using [employer] fluency dictation system and there may be errors in conservation enforcement officer. Despite proof reading the note, there may be mistakes and I apologize for those. By: AN Bynum, 10/11/2022 3:29 PM CLERICAL SPECIALIST ICAL SPECIALIST documented in this encounter Plan of Treatment [...] documented as of this encounter Care Teams Adding Machine Mechanic Relationship Specialty Start Date End Date Je Kerns MD [address] [facility] [address] [place] [address] PCP - General Family Medicine 09/10/17 04/07/23 Booker Sears MD [address] [place] [address] PCP - General Internal Medicine 04/08/23 09/14/24 Clemente Gutierrez MD [address] [facility] [address] [place] [address] Consulting Physician Urological Surgery 05/21/23 Adrian Carr MD [address] [place] [address] Consulting Physician Pulmonary Disease 05/12/23 Shi Farmer Health Seaming Inspector 08/06/24 08/09/24 documented as of this encounter
--- OUTSIDE RECORDS SUMMARY | 2024-10-09 16:35 | XMS_ITS | Encounter Summary ---
Author Organization [facility] Address [address] [place] [address] Phone Care Team Providers Care Solar Sales Assessor Name Role Phone Je Kerns MD Primary Care Provider [phone] Booker Sears MD Primary Care Provider [phone] Clemente Gutierrez MD Unavailable Adrian Carr MD Unavailable Shi Farmer Unavailable Unavailable Reason for Visit * Reason Comments Medication Refill Encounter Details Date Type Department Care Team (Late st Contact Info) Description 06/01/2020 Refill [facility] [address] [phone] Je Kerns MD [address] [address] Medication Refill Social History Tobacco Use Types [...] on file Sexual Orientation Not on file COVID-19 Exposure Response Date Recorded In the last month, have you been in contact with someone who was confirmed or suspected to have Coronavirus / COVID-19? No / Unsure 05/31/2020 1:06 PM CDT documented as of this encounter Miscellaneous Notes * Telephone Encounter - Je Kerns MD - 06/01/2020 10:29 AM CDT Prescription approved. Please call in * Telephone Encounter - Lillian Goff RN - 06/01/2020 10:[address] Kerns, These medications were last prescribed by the hospitalist, Dr Ceron. Last OV 05/31/20 Lillian ALEJANDRAindustrial training specialist failed the protocol, provider to review and approve the medication order if appropriate. Requested Prescriptions Pending Prescriptions Disp Refills magnesium oxide (MAG-OX) 400 MG Tablet [Pharmacy Med Name: MAGNESIUM OXIDE 400 MG TABLET] 30 Tab Sig: TAKE 1 TABLET BY MOUTH EVERY DAY There is no refill protocol information for this order tamsulosin (FLOMAX) 0.4 MG Capsule [Pharmacy Med Name: TAMSULOSIN HCL 0.4 MG CAPSULE] 90 Cap 0 Sig: TAKE 1 CAPSULE BY MOUTH EVERY DAY IN THE MORNING There is no refill protocol information for this order documented in this encounter Plan of Treatment [...] documented as of this encounter Care Teams Solar Sales Assessor Relationship Specialty Start Date End Date Je Kerns MD #2 [facility] [address] [place] [address] PCP - General Family Medicine 09/10/17 04/07/23 Booker Sears MD [address] [place] [address] PCP - General Internal Medicine 04/08/23 09/14/24 Clemente Gutierrez MD #2 [facility] [address] [place] [address] Consulting Physician Urological Surgery 05/21/23 Adrian Carr MD #[address] [place] [address] Consulting Physician Pulmonary Disease 05/12/23 Shi Farmer Health Fisheries Enforcement Officer 08/06/24 08/09/24 documented as of this encounter
--- OUTSIDE RECORDS SUMMARY | 2024-10-09 16:35 | XMS_ITS | Encounter Summary ---
Author Organization [facility] Address [address] [place] [address] Phone Care Team Providers Care Policy Change Clerks Supervisor Name Role Phone Je Kerns MD Primary Care Provider [phone] Booker Sears MD Primary Care Provider [phone] Clemente Gutierrez MD Unavailable Adrian Carr MD Unavailable Shi Farmer Unavailable Unavailable Encounter Details Date Type Department Care Team (Late st Contact Info) Description 07/03/2022 Nursing Facility [facility] [address] [place] [address] Ryan Dinero, PAC [address] [place], [place] [address] Social History Tobacco Use Types Packs/Day Years [...] Progress Notes * Ryan Dinero, PAC - 07/03/2022 2:48 PM CST [facility] NURSING PROGRESS NOTE Saw Christiansen is a 76 y.o. male at [facility] for long-term care. Was hospitalized at [facility] from March 20 through March 22 for [...] I am seeing patient for routine monthly long term visit He is lying comfortably in bed. Denies any acute symptoms or concerns. Says he feels ???good?? . Has a good appetite. No pain. Denies any known history of AAA. Has never seen a vascular surgeon. Past Medical History Positives Diagnosis Date ??? AAA (abdominal aortic aneurysm) ([facility]) ??? Adenomatous colon polyp ??? C. difficile colitis ??? Central obesity ??? CKD (chronic kidney disease) stage 3, GFR 30-59 ml/min ([facility]) ??? DM (diabetes mellitus) ([facility]) ??? HLD [...] PSEUDOMEMBRANOUS COLITIS; Surgeon: Dajuan Garcia DO; Location: [facility]; Service: Gastroenterology ??? ROTATOR CUFF REPAIR Review of Systems: A 14 point comprehensive review of systems was negative except what is documented in interval history above. Objective: Exam: Vital Signs: B/P: 116/66 Pulse: 76 Respirations: 18 Temperature: 98 General: Well developed, [...] as well. Abdominal ultrasound ordered for surveillance. Generalized weakness and deconditioning Receiving long term care Is currently able to transition himself [...] this patient. This note was dictated using [employer] fluency dictation system and there may be errors in scrap yard worker. Despite proof reading the note, there may be mistakes and I apologize for those. By: Ryan Dinero, PAC, 07/03/2022 2:48 PM MANAGER PARTY GER PARTY documented in this encounter Plan of Treatment [...] documented as of this encounter Care Teams Policy Change Clerks Supervisor Relationship Specialty Start Date End Date Je Kerns MD #[address] [address] PCP - General Family Medicine 09/10/17 04/07/23 Booker Sears MD [address] [place] [address] PCP - General Internal Medicine 04/08/23 09/14/24 Clemente Gutierrez MD [address] [address] Consulting Physician Urological Surgery 05/21/23 Adrian Carr MD [address] [place] [address] Consulting Physician Pulmonary Disease 05/12/23 Shi Farmer Health Sweatband Maker 08/06/24 08/09/24 documented as of this encounter
--- OUTSIDE RECORDS SUMMARY | 2024-10-09 16:35 | XMS_ITS | Encounter Summary ---
Author Organization [facility] Address [address] [place] [address] Phone Care Team Providers Care Sterile Processing Technician Name Role Phone Je Kerns MD Primary Care Provider [phone] Booker Sears MD Primary Care Provider [phone] Clemente Gutierrez MD Unavailable Adrian Carr MD Unavailable Shi Farmer Unavailable Unavailable Reason for Visit * Reason Comments Medication Refill Encounter Details Date Type Department Care Team (Late st Contact Info) Description 12/20/2020 Refill [facility] [address] [address] Je Kerns MD #[address] [address] Medication Refill Social History Tobacco Use Types [...] Telephone Encounter - Je Kerns MD - 12/20/2020 3:37 PM CDT Prescription approved. Please call in * Telephone Encounter - Lillian Goff RN - 12/20/2020 3:34 PM CDT No protocol guidelines Per nursing clinical judgement, provider to review and approve the medication(s) order(s) if appropriate. Requested Prescriptions Pending Prescriptions Disp Refills tamsulosin (FLOMAX) 0.4 MG Capsule [Pharmacy Med Name: TAMSULOSIN HCL 0.4 MG CAPSULE] 90 Capsule 3 Sig: TAKE 1 CAPSULE BY MOUTH EVERY DAY IN THE MORNING There is no refill protocol information for this order metFORMIN (GLUCOPHAGE) 1000 MG Tablet [Pharmacy Med Name: METFORMIN HCL 1,000 MG TABLET] 180 Tablet3 Sig: TAKE ONE TABLET BY MOUTH TWICE A DAY There is no refill protocol information [...] documented as of this encounter Care Teams Sterile Processing Technician Relationship Specialty Start Date End Date Je Kerns MD [facility] [address] [place] [address] PCP - General Family Medicine 09/10/17 04/07/23 Booker Sears MD [address] [place] [address] PCP - General Internal Medicine 04/08/23 09/14/24 Clemente Gutierrez MD #[address] [facility] [address] [place] [address] Consulting Physician Urological Surgery 05/21/23 Adrian Carr MD [address] [place] [address] Consulting Physician Pulmonary Disease 05/12/23 hSi Farmer Health Welding Pantograph Machine Operator 08/06/24 08/09/24 documented as of this encounter
--- OUTSIDE RECORDS SUMMARY | 2024-10-09 16:35 | XMS_ITS | Encounter Summary ---
Author Organization [facility] Address [address] [place] [address] Phone Care Team Providers Care Development Officer Name Role Phone Je Kerns MD Primary Care Provider [phone] Booker Sears MD Primary Care Provider [phone] Clemente Gutierrez MD Unavailable Adrian Carr MD Unavailable Shi Farmer Unavailable Unavailable Encounter Details Date Type Department Care Team (Late st Contact Info) Description 11/20/2022 Nursing Facility [facility] [address] [place] [address] Ryan Dinero, PAC [address] [place], [place] [id number] Social History Tobacco Use Types Packs/Day Years [...] Progress Notes * Ryan Dinero, PAC - 11/20/2022 3:15 PM CDT [facility] PROGRESS NOTE Saw Christiansen is a 77 y.o. male at [facility] for long-term care. Was hospitalized at [facility] from March 20 through March 22 for generalized weakness and frequent falls, there was concern for UTI during hospitalization as urine culture grew outMRSA but this was felt to be asymptomatic bacteriuria. Was transferred to an outside correction facility but ultimately did not regain enough ambulation to be discharged back to home so was transferred to this nursing facility on 04/19/2022 for long-term care and also to be with his who is a current long-term resident here. Subjective: Interval History: Patient has developed bilateral lower extremity edema over the last few days. The he denies any shortness of breath or chest pain or any abdominal discomfort or any other symptoms or concerns. Denies previous history of similar symptoms. Denies any excessive salt intake. He is currently lying comfortably in bed and says that he feels ???fine?? . Chart review shows that he is being followed by Cardiology and Cardiovascular surgery and already has stress test scheduled for December 12 as part of his cardiac clearance for surgical intervention of his abdominal aortic aneurysm. Past Medical History Positives Diagnosis Date ??? [...] PSEUDOMEMBRANOUS COLITIS; Surgeon: Dajuan Garcia DO; Location: [facility]; Service: Gastroenterology ??? ROTATOR CUFF REPAIR Review of Systems: A 14 point comprehensive review of systems was negative except what is documented in interval history above. Objective: Exam: Vital Signs: B/P: 128/76 Pulse: 72 Respirations: 20 Temperature: 98 General: Well developed, well nourished, [...] joint mobility appears intact, no clubbing - 11/20: Nonpitting edema ofboth lower extremities up to [...] UNSPECIFIED SITE, WITHOUT RUPTURE Principal Result Manager Logistic: LIDIA BEGUM ([id number]) Sack Sorter: JOSE ALFREDO SANFORD (CJALAFF) Design Supervisor Sack Sorter: MABEL DUPLEX SCAN OF AORTA LTD FINDINGS: [...] BY LIDIA BEGUM M.D. 07/05/2022 5:53:31 AM PATIENT TRANSPORT ORDERLY. Assessment/Plan: Acute mild Bilateral lower extremity edema 11/20: CHF verses venous insufficiency versus arrhythmia versus hypertension. Normal sinus rhythm today. Will start on low-dose furosemide with low-dose potassium supplementation. Already has cardiac workup scheduled for next month as part of preoperative clearance. Abdominal aortic aneurysm CT from 04/18/2021 shows [...] who was planning on surgical intervention at [facility] once cleared by Dr. Betancur. Diabetes mellitus type 2 A1c of 5.5 [...] benazepril Monitor blood pressures 10/11: Well controlled Renal mass On CT from 08/29/2022 a 4.7 x 3.7 cm left renal mass was incidentally found, Mohs likely representing a cyst. Will need to compared to previous studies, may need another CT for repeat imaging. Generalized weakness and deconditioning Receiving care home care Is currently able to transition himself from the bed to the wheelchair without assistance. Needs assistance with toileting. Chronic kidney disease stage 3 Avoid nephrotoxic agents Monitor labs periodically BPH Continue Flomax and oxybutynin Well controlled VTE Prophylaxis: Activity I discussed advanced care planning with this patient. This note was dictated using [employer] fluency dictation system and there may be errors in ferryboat captain. Despite proof reading the note, there may be mistakes and I apologize for those. By: Ryan Dinero, PAC, 11/20/2022 3:15 PM CDT documented in this encounter Plan [...] documented as of this encounter Care Teams Development Officer Relationship Specialty Start Date End Date Je Kerns MD #[address] [address] PCP - General Family Medicine 09/10/17 04/07/23 Booker Sears MD [address] [place] [address] PCP - General Internal Medicine 04/08/23 09/14/24 Clmeente Gutierrez MD [address] [address] Consulting Physician Urological Surgery 05/21/23 Adrian Carr MD #2 [facility] [place] [address] Consulting Physician Pulmonary Disease 05/12/23 Shi Farmer Health Hosiery Mater 08/06/24 08/09/24 documented as of this encounter
--- OUTSIDE RECORDS SUMMARY | 2024-10-09 16:35 | XMS_ITS | Clinical Summary ---
Author Organization [facility] Address [address] [address] Phone Care Team Providers Care Blue Split Trimmer Name Role Phone Clemente Gutierrez MD Unavailable Adrian Carr MD Unavailable Allergies Active Allergy Reactions Criticality Noted Date Comments Penicillins Unknown High 09/25/2018 breaks me out Medications benazepril (LOTENSIN) 20 MG Tablet Take 1 Tablet by mouth daily. 30 Tablet 6 1 Active levothyroxine (SYNTHROID) 50 MCG Tablet Take 1 Tablet by mouth daily. 90 Tablet 3 2 Active amLODIPine (NORVASC) 10 MG Tablet TAKE ONE TABLET BY MOUTH ONCE DAILY 90 Tablet 2 2 Active tamsulosin (FLOMAX) 0.4 MG Capsule TAKE 1 CAPSULE BY MOUTH EVERY DAY IN THE MORNING 90 Capsule 3 2 Active senna (SENOKOT) 8.6 MG Tablet Take 1 Tablet by mouth 2 times daily as needed for Constipation - 2nd line. 30 Tablet 2 Active furosemide (LASIX) 20 MG Tablet Take 20 mg by mouth every morning. 3 Active oxybutynin (DITROPAN-XL) 5 MG TABLET SR 24 HR Take 5 mg by mouth every morning. 2 Active potassium chloride CR (KLORCON) 10 MEQ Tablet Controlled Release Take 10 mEq by mouth every other day. 10 mEq every other day 3 Active dextromethorpha n-guaiFENesin (ROBITUSSIN-DM) 10-100 MG/5ML Syrup Take 5 mL by mouth every 4 hours as needed. 3 Active ondansetron (ZOFRAN) 4 MG Tablet Take 4 mg by mouth every 8 hours as needed. 3 Active Miconazole Powder 1 Dose by Does not apply route in the morning and at bedtime. 30 g 3 Active simvastatin (ZOCOR) 20 MG Tablet Take 20 mg by mouth every evening. Active atorvastatin (LIPITOR) 10 MG Tablet Take 10 mg by mouth daily. Active famotidine (PEPCID) 20 MG Tablet Take 20 mg by mouth every evening. 4 Active Active Problems Problem Noted Date Diagnosed Date Gastroesophageal reflux disease without esophagi tis 12/17/2023 PAD (peripheral artery disease) 05/19/2023 06/18/2023 Non morbid obesity 05/12/2023 ARTURO (obstructive sleep apnea) 05/12/2023 Stage 3a chronic kidney disease 04/08/2023 Hypothyroidism due to acquired atrophy of thyroi d 05/30/2022 Overview (01/08/2023): Last Assessment & Plan: Condition: stable /No recent TSH/T3/T4 Saw reports compliance with prescribed medication. Saw denies the following symptoms: weight gain, bradycardia, fatigue, developing coarse or thin hair, cold intolerance or constipation etc. Member encouraged to keep all scheduled appointments. Follow up in: three months with PCP BPH (benign prostatic hyperplasia) 05/30/2022 Overview (01/08/2023): Last Assessment & Plan: Condition: stable Saw is encouraged to eat a diet rich on legumes and soybeans, to decrease red meats intake. To eat fish rich on omega-3 such as salmon at least once a week. To drink at least 32 oz of water daily, to drink pomegranate juice, and green tea if approve by the PCP Follow up in: three months with PCP Last Assessment & Plan: -continue tamsulosin and oxybutynin. Last Assessment & Plan: Condition: stable Saw is encouraged to eat a diet rich on legumes and soybeans, to decrease red meats intake. To eat fish rich on omega-3 such as salmon at least once a week. 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 Aneurysm appears to be saccular with concerning morphology but has a 2 cm infrarenal neck that is suitable for an endograft placement -s/p OR 01/02 for EVAR. He ended up going to the ICU post op for levophed requirements. 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, without long-term current use of insulin Hypertension, essential Resolved Problems Problem Noted Date Diagnosed Date Resolved Date Acute kidney injury superimp osed on chronic kidney disease 04/08/2023 04/12/2023 Severe sepsis with acute organ dysfunction 04/08/2023 04/12/2023 Cellulitis of right hip 04/08/202310/02 Acute respiratory failure with hypoxia 04/08/2023 04/12/2023 Generalized weakness 03/20/2022 023 Acute cystitis 03/20/2022 01/08/2023 Acute metabolic encephalopathy 04/17/2021 01/08/2023 Hyperkalemia 04/17/2021 01/08/2023 Metabolic acidosis 04/17/2021 3 UTI (urinary tract infection) 04/17/2021 01/08/2023 Sepsis with acute organ dysf unction and septic shock 04/17/2021 01/08/2023 C. difficile colitis 03/07/2020 023 Fall from ground level 01/14/202001/08 Generalized weakness 01/14/2020 023 Dehydration 01/14/2020 01/08/2023 Elevated lactic acid level 01/14/2020 0 01/08/2023 Skin breakdown 01/14/2020 01/08/2023 Cutaneous candidiasis 01/14/20202022 HTN (hypertension) 3 Central obesity 10/15/2023 CKD (chronic kidney disease) stage 4, GFR 15-29 ml/min 06/18/2023 Encounters Date Type Department Care Team Description 08/06/2024 Patient Outreach [facility] [address] [place] [id number] [address] Farmer Care Management ([facility] health map) from Last 3 Months Immunizations Immunization Administration Dates Next Due Albumin IV 04/17/2021,04/17/2021 Covid-19, Mrna, Lnp-s, PF, 1 00 mcg/0.5 mL Dose (Moderna) 09/17/2021 Covid-19, Mrna, Lnp-s, Pf, 1 00 Mcg Or 50 Mcg Dose (MODERNA) 11/22/2021 Influenza Vaccine greater than 3 yrs 08/04/2011 Influenza Vaccine, Quadrivalent, PF 06/04,05/31/2020,05/25/2019,2017,08/27/2017 Influenza, Seasonal, Injecta ble, Undefined 08/04/2011 PUR PCV-13 03/27/2016 Pneumococcal Vaccine - 13 Valent 03/27/2016 Pneumococcal Vaccine Adult - 23 Valent 05/25/2019 TDAP Vaccine 03/20/2019 Tetanus Toxoid, Unspecified Formulation 08/04/2003 Family History Medical History Relation Name Comments Congestive Heart Failure Father Congestive Heart Failure Mother Relation Name Status Comments Father Mother Social History Tobacco Use Types Packs/Day Years Used Date Smoking Tobacco: Never Smokeless Tobacco: Never Tobacco Cessation:Counseling Given: Not Answered Alcohol Use Standard Drinks/Week Comments Never 0 (1 standard drink = 0.6 oz pur e alcohol) AUDIT-C Answer Date Recorded Q1: How often do you have a drink containing alc ohol? Never 01/14/2020 Average Number of Drinks Not on file 020 Frequency of Binge Drinking Not on file 01/02 PHQ-2 Answer Date Recorded Total Score - Questions 1-9 0 09/04 Sexually Active Control Partners Comments Not Currently Sex and Gender Information Value Date Recorded Sex Assigned at Not on file Legal Sex Male 10:20 PM CDT Gender Identity Not on file Sexual Orientation Not on file Last Filed Vital Signs Vital Sign Reading Time Taken Comments Blood Pressure 124/72 09/02/2023 11:32 AM ASSEMBLER BICYCLE Pulse 91 09/02/2023 11:32 AM ASSEMBLER BICYCLE Temperature 36.1 C (96.9 F) 09/02/2023 11:32 AM ASSEMBLER BICYCLE Respiratory Rate 16 09/02/2023 11:32 AM ASSEMBLER BICYCLE Oxygen Saturation 96% 09/02/2023 11:32 AM ASSEMBLER BICYCLE Inhaled Oxygen Concentration - - Weight 113.9 kg (251 lb) 09/02/2023 11:32 AM ASSEMBLER BICYCLE Height 170.2 cm (5' 7 ) 09/02/2023 11:32 AM ASSEMBLER BICYCLE Body Mass Index 39.31 09/02/2023 11:32 AM ASSEMBLER BICYCLE Plan of Treatment Health Maintenance Due Date Last Done Comments Hepatitis C Virus (HCV) Screening 1945 Cologuard 11/12/1993 Immunochemical Fecal Occult Blood 11/12/1993 Zoster Immunization (1 of 2) 11/12/1993 Respiratory Syncytial Virus (RSV) Immunization (Adult) (1 - 1-dose 75+ series) 11/12/2018 Diabetes: Hemoglobin A1c 09/02/2023 023, 12/31/2022, 03/20/2022, Additional history exists Influenza Immunization (#1) 04/04/202406/04, 05/31/2020, 05/25/2019, Additional history exists SARS-COV-2 Immunization ( season) 2024 07/07/2023, 06/19/2022, 11/22/2021, Additional history exists Diabetes: Nephropathy Screening 11/17/2024 11/18/2023, 09/18/2023, 04/08/2023, Additional history exists Colonoscopy 03/03/2025 03/03/2020, 07/22/2012 Colorectal Cancer Screening 03/03/2025 Td Immunization Every 10 Years (Adults With 1 Tdap) 03/20/2029 03/20/2019 Colonoscopy High Risk 03/03/2030 03/03/2020, 012 Pneumococcal Immunization (50+ years) Completed 05/25/2019, 03/27/2016, 03/27/2016 Pneumococcal Immunization Combined Discontinued 05/25/2019, 03/27/2016, 03/27/2016 Diabetes: Eye Exam Discontinued Diabetes: Foot Exam Discontinued Hepatitis B Immunization Aged Out No longer eligible based on patient's age to complete this topic Meningococcal Immunization (ACWY) Aged Out No longer eligible based on patient's age to complete this topic Rotavirus Immunization Aged Out No lo nger eligible based on patient's age to complete this topic Procedures Procedure Name Priority Date/Time Associated Diagnosis Comments CMP (COMPREHENSIVE METABOLIC PANEL) 11/18/2023 12:00 AM CDT HEMOGLOBIN A1C W/ ESTIMATED GLUCOSE STAT 03/02/2023 8:25 PM CDT COLONOSCOPY Routine 07/22/2012 from Last 3 Months or Most Recently Relevant to Health Maintenance Results * CMP (COMPREHENSIVE METABOLIC PANEL) (11/18/2023 12:00 AM CDT) 11/18/2023 us Provider Scan CHEMISTRY ORDERABLES Final Resul t SCAN * Hemoglobin A1C w/ Estimated Glucose (03/02/2023 8:25 PM CDT) HGB-A1C 5.8 4.0 - 6.0 % 03/02/2023 11:50 PM CDT [facility] Est Average Glucose 119.8 mg/dL 03/02/2023 11:50 PM CDT [facility] Blood Venipuncture / Unknown 03/02/2023 8:25 PM CDT 03/02/2023 8:28 PM CDT Narrative [facility] - 03/02/2023 11:50 PM CDT HEMOGLOBIN A1C: DIABETIC PATIENTS: WELL-CONTROLLED: 6.2 - 7.0 INTERMEDIATE WELL-CONTROLLED: 7.0 - 9.0 POORLY-CONTROLLED: >9.0 us Danay Rivera AUTOMOTIVE ENGINEER, CUSTOMER COUNTER ASSOCIATE CHEMISTRY ORDERABLES Final Result [facility] [address] [place] [address] * HM COLONOSCOPY (07/22/2012) us Jerrell Hurtado DO PROCEDURE/MINOR SURGICAL ORDERAB LES Final Result from Last 3 Months or Most Recently Relevant to Health Maintenance Additional Health Concerns Infection Onset Date 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 PRE-ARREST: Use entire range of life support measures to stabilize the patient. * Full Code Date Activated Date Inactivated Comments 03/02/2023 10:36 PM 03/05/2023 2:59 PM CPR-Full Bucky atment: FULL ARREST: Attempt Resuscitation/CPR wit intubation and mechanical ventilation. PRE-ARREST: Use entire range of life support measures to stabilize the patient. * Full Code Date Activated Date Inactivated Comments 03/20/2022 3:51 PM 03/22/2022 8:19 PM CPR-Full Bucky atment: FULL ARREST: Attempt Resuscitation/CPR wit intubation and mechanical ventilation. PRE-ARREST: Use entire range of life support measures to stabilize the patient. * Full Code Date Activated Date Inactivated Comments 04/17/2021 6:43 PM 04/23/2021 3:42 PM CPR-Full Bucky atment: FULL ARREST: Attempt Resuscitation/CPR wit intubation and mechanical ventilation. PRE-ARREST: Use entire range of life support measures to stabilize the patient. * Full Code Date Activated Date Inactivated Comments 03/05/2020 10:42 AM 03/07/2020 6:39 PM CPR-Full Araceli tment: FULL ARREST: Attempt Resuscitation/CPR wit intubation and mechanical ventilation. PRE-ARREST: Use entire range of life support measures to stabilize the patient. Care Teams Blue Split Trimmer Relationship Specialty Start Date End Date Clemente Gutierrez MD [address] [address] Consulting Physician Urological Surgery 05/21/23 Adrian Carr MD [address] [place] [id number] Consulting Physician Pulmonary Disease 05/12/23
--- OUTSIDE RECORDS SUMMARY | 2024-10-09 16:36 | XMS_ITS | Clinical Summary ---
Author Organization [facility] Office Building A Address [address] [place] [address] Care Team Providers Care Aircraft Communicator Name Role Phone Vidal García MD Unavailable [phone] Booker Sears MD Primary Care Provider + Allergies Active Allergy Reactions Criticality Noted Date Comments Penicillins Rash High 09/25/2018 breaks me out Other reaction(s): Unknown Medications benazepril (LOTENSIN) 20 mg tablet take 1 tablet by oral route every day 0 0 6 Active Additional Information Patient taking differently:20 mgoral Every morning, Indications: hypertension, Informant: [facility], Reported on 05/22/2023 amLODIPine (NORVASC) 10 mg tablet Take 1 tablet (10 mg total) by mouth daily 2 Active levothyroxine (SYNTHROID) 50 mcg tablet Take 1 tablet (50 mcg total) by mouth every morning 2 Active oxybutynin XL (DITROPAN-XL) 5 mg 24 hr tablet Take 1 tablet (5 mg total) by mouth every morning 3 Active senna (SENOKOT) 8.6 mg tablet Take 1 tablet by mouth 2 (two) times a day as needed for constipation 2 Active tamsulosin (FLOMAX) 0.4 mg extended release capsule Take 1 capsule (0.4 mg total) by mouth every morning 2 Active ondansetron (ZOFRAN) 4 mg tablet Take 1 tablet (4 mg total) by mouth every 8 (eight) hours as needed for nausea or vomiting 2 Active furosemide (LASIX) 20 mg tablet Take 1 tablet (20 mg total) by mouth every morning 3 Active potassium chloride ER 10 mEq CR tablet Take 1 tablet/capsule (10 mEq total) by mouth every other day 3 Active aspirin 81 mg chewable tablet Take 1 tablet (81 mg total) by mouth daily 30 tablet 11 3 Active polyethylene glycol (MIRALAX) 17 gram packetIndicatio ns:constipation Take 1 packet (17 g total) by mouth daily 3 Active atorvastatin (LIPITOR) 10 mg tablet Take 1 tablet (10 mg total) by mouth daily before dinner Active multivitamin with minerals tablet Take 1 tablet by mouth daily Active guaifenesin/dex tromethorphan (GUAIFENESIN DM ORAL) Take 5 mL by mouth every 4 (four) hours as needed Active miconazole (Micro-Guard) 2 % powder Apply 1 g (1 Application total) topically 2 (two) times a day Active famotidine (PEPCID) 20 mg tablet Take 1 tablet (20 mg total) by mouth daily 4 Active Active Problems Problem Noted Date Diagnosed Date PAD (peripheral artery disease) 05/19/2023 RBBB 09/10/2022 Type 2 diabetes mellitus, [facility] [place] long-term current use of insulin 08/13/2022 Overview (09/10/2022): Last Assessment & Plan: Condition: stable Discussed glucose control targets. Educated on: Lifestyle changes, Nutrition, Foot care and Medication compliance Follow up in: three months with PCP, Upholstery Parts Sorter, Tennis Desk Team Member, Child And Family Therapist, Established eye patient care manager and Hand Rounder Assessment & Plan (01/03/2023 11:24 AM CDT): -hold metformin. -continue SSI while inpatient. -monitor BG BPH (benign prostatic hyperplasia) 05/30/2022 Overview (09/10/2022): Last Assessment & Plan: Condition: stable Saw [...] Follow up in: three months with PCP Assessment & Plan (01/03/2023 11:26 AM CDT): -continue tamsulosin and oxybutynin. CKD (chronic kidney disease) stage 4, GFR 15-29 ml/min 05/30/2022 Overview (09/10/2022): Last Assessment & Plan: Condition: stable Follow up in: three months With PCP ABNORMAL) CMP (COMPREHENSIVE METABOLIC PANEL) (09/12/2021 9:20 AM WOOD PATTERNMAKER APPRENTICE) Lab Results - (ABNORMAL) CMP (COMPREHENSIVE METABOLIC PANEL) (09/12/2021 9:20 AM WOOD PATTERNMAKER APPRENTICE) SODIUM 142 136 - 144 mmol/L 09/12/2021 1:44 PM [facility] POTASSIUM 4.5 3.5 - 5.1 mmol/L 09/12/2021 1:44 PM [facility] CHLORIDE 103 100 - 110 mmol/L 09/12/2021 1:44 PM [facility] CO2, VENOUS 24 22 - 32 mmol/L 09/12/2021 1:44 PM [facility] ANION GAP 19.5 8.0 - 20.0 mmol/L 09/12/2021 1:44 PM [facility] GLUCOSE 113 (H) 70 - 99 mg/dL 09/12/2021 1:44 PM [facility] BUN 22 8 - 23 mg/dL 09/12/2021 1:44 PM [facility] CREATININE, BLOOD 1.65 (H) 0.80 - 1.30 mg/dL 09/12/2021 1:44 PM [facility] BUN/CREATININE RATIO 13 12 - 20 ratio 09/12/2021 1:44 PM [facility] TOTAL PROTEIN 7.8 6.0 - 8.3 g/dL 09/12/2021 1:44 PM [facility] ALBUMIN 4.4 3.5 - 5.2 g/dL 09/12/2021 1:44 PM [facility] Comment: The colormetric methods used for the determination of Albumin may lead to falsely elevated test results in patients suffering from renal failure or insufficiency due to interference with other proteins. A/G RATIO 1.3 1.0 - 2.0 09/12/2021 1:44 PM [facility] CALCIUM 10.2 8.9 - 10.3 mg/dL 09/12/2021 1:44 PM [facility] T BILI 0.3 <=1.2 mg/dL 09/12/2021 1:44 PM [facility] SGOT (AST) 13 <=40 U/L 09/12/2021 1:44 PM [facility] SGPT (ALT) 11 <=41 U/L 09/12/2021 1:44 PM [facility] ALKALINE PHOSPHATASE 96 40 - 130 U/L 09/12/2021 1:44 PM [facility] GFR, EST. NONAFRICAN 41 (L) >=60 09/12/2021 1:44 PM [facility] GFR, EST. 49 (L) >=60 09/12/2021 1:44 PM [facility] Assessment & Plan (01/03/2023 11:26 AM CDT): Recent Cr from outside records ranging 1.5-1.9. Cr currently 1.83. -avoid nephrotoxins -monitor BMP. Hypertension associated with diabetes 05/30/2022 Overview (09/10/2022): Last Assessment & Plan: Condition: stable Discussed glucose control targets. Educated on: Lifestyle changes, Nutrition, Foot care and Medication compliance Saw educated on behavior modifications to include DASH diet, increasing their intake of vegetables, water and whole foods as well as increasing their level of exercise weekly to 3- 4 times after medical clearance from your PCP. Discussed with him the need to reduce their intake of foods high in salt, sugar, fat and preservatives. Saw encouraged to stay compliant with medication regimen and behavior modification recommendations in order to achieve a healthier lifestyle and reduce their risks. Saw verbalized understanding. Member advised to keep all scheduled appointments. Advised to continue taking all medications as prescribed and to keep all medical appointments. Continue to follow up for an annual wellness exam.Patient verbalized understanding. Discussed target blood pressure. Continue medication as prescribed from PCP/specialist. Take medications at the same time every day. Lifestyle modification advised: DASH diet, reduce stress/anxiety, discussed health weight management, activity as tolerated or advised from PCP, try to avoid alcohol and nicotine.Patient encouraged to keep all appointments and report any new or worsening symptoms to PCP.Member verbalized understanding. Follow up in: three months with PCP, Upholstery Parts Sorter, Tennis Desk Team Member, Child And Family Therapist and Established eye patient care manager Assessment & Plan (01/03/2023 11:25 AM CDT): Home regimen: benazepril 20, amlodipine 10. Recently started on lasix 20, but per PCP notes, this was for BLE edema. -continue home meds as able Acute kidney injury superimposed on chronic kidn ey disease 04/17/2021 Acute metabolic encephalopathy 04/17/2021 Infrarenal abdominal aortic aneurysm (AAA) witho ut rupture 01/18/2020 Assessment & Plan (01/03/2023 11:25 AM CDT): He was incidentally found to have a [...] shavon luu -cont OU -ADAT -cont ASA Cutaneous candidiasis 01/14/2020 Resolved Problems Problem Noted Date Diagnosed Date Resolved Date AAA (abdominal aortic aneury sm) without rupture 01/02/2023 01/03/2023 Medical History Medical History Date Comments Type 2 diabetes mellitus (HCC) D iabetes type 2; Comments: CAN 09/15/2015 - Mild protein-calorie malnutrition Anxiety Aneurysm Aneurysim withou t rupture Cellulitis History of sepsis Family History Medical History Relation Name Comments Gout Other Family history of Gout; Heart disease Other Family history of Heart disease; Hypertension Other Family history of Hypertension; Relation Name Status Comments Other Social History Tobacco Use Types Packs/Day Years Used Date Smoking Tobacco: Never Passive Smoke Exposure: Past Smokeless Tobacco: Never Tobacco Cessation:Counseling Given: Not Answered AUDIT-C Answer Date Recorded Q1: How often do you have a drink containing alc ohol? Never 05/30/2023 Average Number of Drinks Not on file 023 Frequency of Binge Drinking Not on file 05/05 Personal Safety Answer Date Recorded Have you ever been in or are you currently in a harmful physical or emotional relationship or is someone making you feel afraid or unsafe? 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 Gender Identity Not on file Sexual Orientation Not on file Obstetrics History Last Filed Vital Signs Vital Sign Reading Time Taken Comments Blood Pressure 104/64 04/12/2024 2:06 PM CDT Pulse 91 04/12/2024 2:06 PM CDT Temperature 36.9 C (98.4 F) 04/12/2024 2:06 PM CDT Respiratory Rate 16 05/30/2023 6:57 AM CDT Oxygen Saturation 94% 05/30/2023 2:30 PM CDT Inhaled Oxygen Concentration - - Weight 112.4 kg (247 lb 12.8 oz) 04/12/2024 2:06 PM CDT Height 170.2 cm (5' 7 ) 04/12/2024 2:06 PM CDT Body Mass Index 38.81 04/12/2024 2:06 PM CDT Plan of Treatment Health Maintenance Due Date Last Done Comments Albumin Creatinine Ratio, Urine 1943 Depression Screening 1945 Dilated Eye Exam 1943 Foot Exam 1943 Hepatitis B Screening 11/12/1961 Zoster Vaccine (1 of 2) 11/12/1993 Well Visit 65+ 11/12/2008 Hemoglobin A1C 07/03/2023 12/31/2022 Lipid Panel 01/04/2024 01/03/2023, 03/12/2021 Covid-19 Vaccine (2023-2 5 season) 2024 06/19/2022, 11/22/2021, 09/17/2021 Influenza Vaccine (#1) 2024 , 05/31/2020, 05/25/2019, Additional history exists Fall Risk Assessment 05/30/2024 05/30/2023 eGFR 05/30/2024 05/30/2023, 09/2022, 01/02/2023, Additional history exists DTaP/Tdap/Td Vaccine (2 - Td or Tdap) 03/20/2029 03/20/2019 Pneumococcal vaccine 65+ Completed 05/25/2019, 03/05 Medical Devices Implanted Type Area Bakeshop Cleaner Device Identifier Shelf Expiration Date Model / Serial / Lot Ethicon Endo Surgery Ligaclip Extra 2.6mm Ligate Open Small Clip Internal Titanium Latex Free [id number] - [id number] - [id number] Implanted:Qt y: 1 on 01/02/2023 by Vidal García MD at [facility] Clip Ethicon Endo Surgery 05/03/2027 [id number] / [id number] / [id number] [employer] [place] Excluder C3 23mm 14.5mm 19-21mm 12-13.5mm 12cm Sinusoidal [id number] - [id number] - [id number] Implanted:Qt y: 1 on 01/02/2023 by Vidal García MD at [facility] Endoprosthesis Infrarenal Aorta [employer] 06/17/2025 [id number] / [id number] / [id number] [employer]l [employer] Excluder 16mm 13.5-14.5mm 9.5cm Stent Abrasion Resistant [id number] - [id number] - [id number] Implanted:Qt y: 1 on 01/02/2023 by Vidal García MD at [facility] Stent Right: Iliac [employer] 06/09/2025 [id number] 00 / [id number] / [employer]l [employer] Excluder 16mm 13.5-14.5mm 11.5cm Stent Abrasion Resistant [id number] - [id number] - [id number] Implanted:Qt y: 1 on 01/02/2023 by Vidal García MD at [facility] Stent Left: Iliac [employer] 05/29/2025 [id number] 00 / [id number] / [employer] V[employer] Device Clsr Perclose Prostyle Sut-Mediatd Closure-Repa ir Sys 30415-12 - [id number] - [id number] Implanted:Qt y: 1 on 01/02/2023 by Vidal García MD at [facility] Vascular Closure Device Right: Femoral [employer] 10/01/2024 68570-4 3 / [id number] / [id number] [employer] Device Clsr Perclose Prostyle Sut-Mediatd Closure-Repa ir Sys 47828-57 - [id number] - [id number] Implanted:Qt y: 1 on 01/02/2023 by Vidal García MD at [facility] Vascular Closure Device Right: Femoral [employer] 10/01/2024 39898-8 3 / [id number] / [id number] [employer] Device Clsr Perclose Prostyle Sut-Mediatd Closure-Repa ir Sys 27143-91 - [id number] - [id number] Implanted:Qt y: 1 on 01/02/2023 by Vidal García MD at [facility] Vascular Closure Device Left: Femoral [employer] 10/01/2024 24502-8 3 / [id number] / [id number] [employer] Device Clsr Perclose Prostyle Sut-Mediatd Closure-Repa ir Sys 98329-69 - [id number] - [id number] Implanted:Qt y: 1 on 01/02/2023 by Vidal García MD at [facility] Vascular Closure Device Left: Femoral [employer] 10/01/2024 21694-9 3 / [id number] / [id number] [employer] Device Clsr Perclose Prostyle Sut-Mediatd Closure-Repa ir Sys 45539-55 - [id number] Implanted:Qt y: 1 on 01/02/2023 by Vidal García MD at [facility] Vascular Closure Device Left: Femoral [employer] 10/01/2024 29061-7 3 / / [id number] [employer] Device Clsr Perclose Prostyle Sut-Mediatd Closure-Repa ir Sys 82672-54 - [id number] Implanted:Qt y: 1 on 01/02/2023 by Vidal García MD at [facility] Vascular Closure Device Left: Femoral [employer] 10/01/2024 97380-2 3 / / [id number] [employer] Device Clsr Perclose Prostyle Sut-Mediatd Closure-Repa ir Sys 43862-37 - [id number] - [id number] Implanted:Qt y: 1 on 01/02/2023 by Vidal García MD at [facility] Vascular Closure Device Right: Iliac [employer] 10/01/2024 99009-7 3 / [id number] / [id number] [employer] Visi-Pro 10mm 57mm 135cm Balloon Expandable Radiopaque Open - [id number] Implanted:Qt y: 1 on 05/30/2023 by Vidal García MD at [facility] [employer] 08/25/2023 [id number] 0-57-13 5 / / [id number] [employer] Visi-Pro 10mm 57mm 135cm Balloon Expandable Radiopaque Open - [id number] Implanted:Qt y: 1 on 05/30/2023 by Vidal García MD at [facility] [employer] 09/19/2024 [id number] 0-57-13 5 / / [id number] [employer] Starclose Se 6fr Clip Vascular Device Closure Nitinol Sterile 74673-80 - [id number] Implanted:Qt y: 1 on 05/30/2023 by Vidal García MD at [facility] [employer] 06/04/2024 95695-3 [id number] [employer] Starclose Se 6fr Clip Vascular Device Closure Nitinol Sterile 18134-16 - [id number] Implanted:Qt y: 1 on 05/30/2023 by Vidal García MD at [facility] Vascular 06/04/2024 [id number] Procedures Procedure Name Priority Date/Time Associated Diagnosis Comments EGFR Routine 05/30/2023 9:22 AM CDT LIPID PANEL Routine 01/03/2023 12:06 AM CDT POCT HEMOGLOBIN A1C Routine 12/31/2022 2 :35 PM CDT from Last 3 Months or Most Recently Relevant to Health Maintenance Results * eGFR (05/30/2023 9:22 AM CDT) eGFR 42 mL/min/1. 73 m2 [facility] Comment: Interpretive Data Reference Interval Normal >/= 90 mL/min/1.73m2 Mildly decreased* 60 - 89 mL/min/1.73m2 Mildly to moderately decreased 45 - 59 mL/min/1.73m2 Moderately to severely decreased 30 - 44 mL/min/1.73m2 Severely decreased 15 - 29 mL/min/1.73m2 Kidney Failure < 15 mL/min/1.73m2 *Relative to young adult level Estimated glomerular filtration rate is determined by the 2020 CKD-EPI equation recommended by the National Kidney Foundation (A Unifying Approach to GFR Estimation: Recommendations of the NKF-ASK Task Force on Reassessing the Inclusion of Race in Diagnosing Kidney Disease, JASN 202). The CKD-EPI equation should not be used for patients with unstable renal function and has not been validated in children and those over 70. Current interpretive data was last reviewed 2021. Blood 05/30/2023 9:22 AM CDT 05/30/2023 9:40 AM CDT us Vidal García MD LAB BLOOD ORDERABLES Final R esult [facility] [address] [place] [address] [phone] * (ABNORMAL) Lipid panel (01/03/2023 12:06 AM CDT) Cholesterol 138 30 - 199 mg/dL [facility] Comment: Interpretive Data Ages < or = 19 years Acceptable: <170 mg/dL Borderline high: 170-199 mg/dL High: >or= 200 mg/dL Ages > or = 20 years Desirable: <200 mg/dL Borderline high: 200-239 mg/dL High: >or= 240 mg/dL Literature References: 1. Expert Panel on Integrated Guidelines for Cardiovascular Health and Risk Reduction in Children and Adolescents. Pediatrics 2011;128:S213 2. NCEP Expert Panel. Circulation 2004;110:227 Current Interpretive Data was last revised on 2018. Triglycerides 86 <=149 mg/dL [facility] Comment: Interpretive Data Ages < or = 9 years Acceptable: <75 mg/dL Borderline high: 75-99 mg/dL High: >or= 100 mg/dL Ages 10 to 20 years Acceptable: <90 mg/dL Borderline high: 90-129 mg/dL High: >or= 130 mg/dL Ages > or = 20 years Desirable: <150 mg/dL Borderline high: 150-199 mg/dL High: 200-499 mg/dL Very high: >or= 499 mg/dL Literature References: 1. Expert Panel on Integrated Guidelines for Cardiovascular Health and Risk Reduction in Children and Adolescents. Pediatrics 2011;128:S213 2. NCEP Expert Panel. Circulation 2004;110:227 Current Interpretive Data was last revised on 2018. HDL 36(L) >=40 mg/dL [facility] Comment: Interpretive Data Ages < or = 19 years Acceptable: >45 mg/dL Borderline low: 40-45 mg/dL Low: <40 mg/dL Ages > or = 20 years Desirable: >or= 60 mg/dL Low: <40 mg/dL Literature References: 1. Expert Panel on Integrated Guidelines for Cardiovascular Health and Risk Reduction in Children and Adolescents. Pediatrics 2011;128:S213 2. NCEP Expert Panel. Circulation 2004;110:227 Current Interpretive Data was last revised on 2018. LDL, calculated 85 <=129 mg/dL [facility] Comment: Interpretive Data Ages < or = 19 years Acceptable: <110 mg/dL Borderline high: 110-129 mg/dL High: >or= 130 mg/dL Ages > or = 20 years Optimal: <100 mg/dL Near optimal: 100-129 mg/dL Borderline high: 130-159 mg/dL High: >160 mg/dL Literature References: 1. Expert Panel on Integrated Guidelines for Cardiovascular Health and Risk Reduction in Children and Adolescents. Pediatrics 2011;128:S213 2. NCEP Expert Panel. Circulation 2004;110:227 Current Interpretive Data was last revised on 2018. Non-HDL Cholesterol 102 mg/dL [facility] Comment: Interpretive Data Ages < or = 19 years Acceptable: <120 mg/dL Borderline high: 120-144 mg/dL High: >145 mg/dL Ages > or = 20 years When triglycerides are >200 mg/dL, Non-HDL cholesterol is a secondary target of therapy with treatment goals that are 30 mg/dL greater than the LDL cholesterol target. Literature References: 1. Expert Panel on Integrated Guidelines for Cardiovascular Health and Risk Reduction in Children and Adolescents. Pediatrics 2011;128:S213 2. NCEP Expert Panel. Circulation 2004;110:227 Current Interpretive Data was last revised on 2018. Chol/HDL ratio 4 [facility] Blood 01/03/2023 12:0 6 AM CDT 01/03/2023 12:22 AM CDT us Vidal García MD LAB BLOOD ORDERABLES Final R esult [facility] [place] [address] * POCT hemoglobin A1c (12/31/2022 2:35 PM CDT) Hgb A1C, POC 5.6 4.0 - 5.6 % [facility] Est Average Gluc POC 114 mg/dL [facility] Comment: The ADA recommends reporting an estimated Average Glucose (eAG) with all Hemoglobin A1c results using the equation derived from a study of 507 normal and diabetic adults. Minority populations were underrepresented and children were not included. (Diabetes Care 31:3642-5985, 2008). The eAG is not equivalent to a fasting glucose. Blood 12/31/2022 2:35 PM CDT 12/31/2022 2:35 PM CDT Vidal García MD POINT OF CARE TEST ORDERABLE S Final Result [facility] Department [place] [address] from Last 3 Months or Most Recently Relevant to Health Maintenance Insurance [facility] MEDICARE [facility] Member Subscriber Plan / Payer (Ef fective 2024-Present) Name:Saw Christiansen Relation to Subscriber:Self Name:Saw Christiansen Payer ID:[id number] (NAIC) Group ID:Not on file Type:MEDICAID RISK OTHER Address: [address] [facility] Advance Directives For more information, please contact: [phone] * Full Code (Latest Code Status on File) Date Activated Date Inactivated Comments 01/02/2023 9:56 PM 01/06/2023 5:23 PM * Full Code Date Activated Date Inactivated Comments 01/02/2023 9:56 PM 01/02/2023 9:56 PM * Full Code Date Activated Date Inactivated Comments 01/02/2023 9:56 PM 01/02/2023 9:56 PM Care Teams Aircraft Communicator Relationship Specialty Start Date End Date Booker Sears MD [address] [place] [address] PCP - General Internal Medicine 05/19/23 [place]ía [place] [address] [address] [facility] [address] [address] Consulting Physician Vascular Surgery 01/06/23
--- OUTSIDE RECORDS SUMMARY | 2024-10-09 16:36 | XMS_ITS | Referral Summary ---
Author Organization [facility] A Address [address] [place] [address] Care Team Providers Care Linoleum Installer Name Role Phone Vidal García MD Unavailable [phone] Booker Sears MD Primary Care Provider + Allergies Active Allergy Reactions Criticality Noted Date Comments Penicillins Rash High 09/25/2018 breaks me out Other reaction(s): Unknown Medications benazepril (LOTENSIN) 20 mg tablet take 1 tablet by oral route every day 0 0 6 Active Additional Information Patient taking differently:20 mgoral Every morning, Indications: hypertension, Informant: Decorating Inspector Care Facility, Reported on 05/22/2023 amLODIPine (NORVASC) [...] 05/19/2023 RBBB 09/10/2022 Type 2 diabetes mellitus, [facility] long-term current use of insulin 08/13/2022 Overview (09/10/2022): Last Assessment & Plan: Condition: stable Discussed glucose control targets. Educated on: Lifestyle changes, Nutrition, Foot care and Medication compliance Follow up in: three months with PCP, Tapping Machine Operator Automatic, Bulk Filler, Passenger Rate Clerk, Established eye floor care technician and Police And Fire Dispatcher Assessment & Plan (01/03/2023 11:24 AM CDT): [...] CMP (COMPREHENSIVE METABOLIC PANEL) (09/12/2021 9:20 AM MEDICAL STAFF PHYSICIAN) Lab Results - (ABNORMAL) CMP (COMPREHENSIVE METABOLIC PANEL) (09/12/2021 9:20 AM MEDICAL STAFF PHYSICIAN) SODIUM 142 136 - 144 mmol/L 09/12/2021 1:44 PM [facility] POTASSIUM 4.5 3.5 - 5.1 mmol/L 09/12/2021 1:44 PM [facility] CHLORIDE 103 100 - 110 mmol/L 09/12/2021 1:44 PM [facility] CO2, VENOUS 24 22 - 32 mmol/L 09/12/2021 1:44 PM [facility] ANION GAP 19.5 8.0 - 20.0 mmol/L 09/12/2021 1:44 PM [facility] GLUCOSE 113 (H) 70 - 99 mg/dL 09/12/2021 1:44 PM [facility] BUN 22 8 - 23 mg/dL 09/12/2021 1:44 PM [facility] CREATININE, BLOOD 1.65 (H) 0.80 - 1.30 mg/dL 09/12/2021 1:44 PM [facility] BUN/CREATININE RATIO 13 12 - 20 ratio 09/12/2021 1:44 PM [facility] TOTAL PROTEIN 7.8 6.0 - 8.3 g/dL 09/12/2021 1:44 PM [facility] ALBUMIN 4.4 3.5 - 5.2 g/dL 09/12/2021 1:44 PM [facility] Comment: The colormetric methods used for the determination of Albumin may lead to falsely elevated test results in patients suffering from renal failure or insufficiency due to interference with other proteins. A/G RATIO 1.3 1.0 - 2.0 09/12/2021 1:44 PM [facility] CALCIUM 10.2 8.9 - 10.3 mg/dL 09/12/2021 1:44 PM [facility] T BILI 0.3 <=1.2 mg/dL 09/12/2021 1:44 PM [facility] SGOT (AST) 13 <=40 U/L 09/12/2021 1:44 PM [facility] SGPT (ALT) 11 <=41 U/L 09/12/2021 1:44 PM [facility] ALKALINE PHOSPHATASE 96 40 - 130 U/L 09/12/2021 1:44 PM [facility] GFR, EST. NONAFRICAN 41 (L) >=60 09/12/2021 1:44 PM [facility] GFR, EST. 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 01/02/2023 01/03/2023 Social History Tobacco Use Types Packs/Day Years [...] on file Legal Sex Male 3:42 PM MEDICAL STAFF PHYSICIAN Gender Identity Not on file Sexual Orientation [...] 04/12/2024 2:06 PM CDT Plan of Treatment Not on file Medical Devices Implanted Type Area Paper Bag Making Machinist Device Identifier Shelf Expiration Date Model / Serial / Lot Ethicon Endo Surgery Ligaclip Extra 2.6mm Ligate Open Small Clip Internal Titanium Latex Free Lt100 - [id number] - [id number] Implanted:Qt y: 1 on 01/02/2023 by Vidal García MD at [facility] Clip Ethicon Endo Surgery 05/03/2027 [id number] / [id number] / [id number] [employer] [place] Excluder C3 23mm 14.5mm 19-21mm 12-13.5mm 12cm Sinusoidal [id number] - [id number] - [id number] Implanted:Qt y: 1 on 01/02/2023 by Vidal García MD at [facility] Endoprosthesis Infrarenal Aorta [employer] 06/17/2025 [id number] / [id number] / [id number] [employer] Excluder 16mm 13.5-14.5mm 9.5cm Stent Abrasion Resistant [id number] - [id number] - [id number] Implanted:Qt y: 1 on 01/02/2023 by Vidal García MD at [facility] Stent Right: Iliac [employer] 06/09/2025 [id number] 00 / [id number] / [employer] Excluder 16mm 13.5-14.5mm 11.5cm Stent Abrasion Resistant [id number] - [id number] - [id number] Implanted:Qt y: 1 on 01/02/2023 by Vidal García MD at [facility] Stent Left: Iliac [employer] 05/29/2025 [id number] 00 / [id number] / [employer] Vascular Device Clsr Perclose Prostyle Sut-Mediatd Closure-Repa ir Sys 96243-33 - [id number] - [id number] Implanted:Qt y: 1 on 01/02/2023 by Vidal García MD at [facility] Vascular Closure Device Right: Femoral [employer] 10/01/2024 13391-1 3 / [id number] / [id number] [employer] Device Clsr Perclose Prostyle Sut-Mediatd Closure-Repa ir Sys 29834-50 - [id number] - [id number] Implanted:Qt y: 1 on 01/02/2023 by Vidal García MD at [facility] Vascular Closure Device Right: Femoral [employer] 10/01/2024 66542-4 3 / [id number] / [id number] [employer] Device Clsr Perclose Prostyle Sut-Mediatd Closure-Repa ir Sys 80571-45 - [id number] - [id number] Implanted:Qt y: 1 on 01/02/2023 by Vidal García MD at [facility] Vascular Closure Device Left: Femoral [employer] 10/01/2024 46310-1 3 / [id number] / [id number] [employer] Device Clsr Perclose Prostyle Sut-Mediatd Closure-Repa ir Sys 02698-31 - [id number] - [id number] Implanted:Qt y: 1 on 01/02/2023 by Vidal García MD at [facility] Vascular Closure Device Left: Femoral [employer] 10/01/2024 77068-6 3 / [id number] / [id number] [employer] Device Clsr Perclose Prostyle Sut-Mediatd Closure-Repa ir Sys 90981-00 - [id number] Implanted:Qt y: 1 on 01/02/2023 by Vidal García MD at [facility] Vascular Closure Device Left: Femoral [employer] 10/01/2024 09646-2 3 / / [id number] [employer] Device Clsr Perclose Prostyle Sut-Mediatd Closure-Repa ir Sys 84380-31 - [id number] Implanted:Qt y: 1 on 01/02/2023 by Vidal García MD at [facility] Vascular Closure Device Left: Femoral [employer] 10/01/2024 62257-6 3 / / [id number] [employer] Device Clsr Perclose Prostyle Sut-Mediatd Closure-Repa ir Sys 04534-04 - [id number] - [id number] Implanted:Qt y: 1 on 01/02/2023 by Vidal García MD at [facility] Vascular Closure Device Right: Iliac [employer] 10/01/2024 60171-3 3 / [id number] / [id number] [employer] Visi-Pro 10mm 57mm 135cm Balloon Expandable Radiopaque Open - [id number] Implanted:Qt y: 1 on 05/30/2023 by Vidal García MD at [facility] [employer] 08/25/2023 [id number] 0-57-13 5 / / [id number] [employer] Inc Visi-Pro 10mm 57mm 135cm Balloon Expandable Radiopaque Open - [id number] Implanted:Qt y: 1 on 05/30/2023 by Vidal García MD at [facility] [employer] 09/19/2024 [id number] 0-57-13 5 / / [id number] [employer] Starclose Se 6fr Clip Vascular Device Closure Nitinol Sterile 24473-71 - [id number] Implanted:Qt y: 1 on 05/30/2023 by Vidal García MD at [facility] [employer] 06/04/2024 33579-0 41 [id number] [employer] Starclose Se 6fr Clip Vascular Device Closure Nitinol Sterile 87262-30 - [id number] Implanted:Qt y: 1 on 05/30/2023 by Vidal García MD at [facility] [employer] 06/04/2024 06144-1 [id number] Procedures Procedure Name Priority Date/Time Associated Diagnosis [...] Inclusion of Race in Diagnosing Kidney Disease, DARYLSN 2020). The CKD-EPI equation should not be used for patients with unstable renal function and has not been validated in children and those over 70. Current interpretive data was last reviewed 2021. Blood 05/30/2023 9:22 AM CDT 05/30/2023 9:40 AM CDT Vidal García MD LAB [place]LO[place] [address] [address] Department [place] [address] * (ABNORMAL) Lipid panel (01/03/2023 12:06 AM CDT) Cholesterol 138 30 - 199 mg/dL [facility] Comment: Interpretive Data Ages < or = [...] on 2018. Triglycerides 86 <=149 mg/dL [facility] Comment: Interpretive Data Ages < or = [...] revised on 2018. HDL 36(L) >=40 mg/dL [facility] Comment: Interpretive Data Ages < or = [...] on 2018. LDL, calculated 85 <=129 mg/dL [facility] Comment: Interpretive Data Ages < or = [...] revised on 2018. Non-HDL Cholesterol 102 mg/dL [facility] Comment: Interpretive Data Ages < or = [...] last revised on 2018. Chol/HDL ratio 4 [facility] Blood 01/03/2023 12:0 6 AM CDT 01/03/2023 12:22 AM CDT us Vidal García MD LAB BLOOD ORDERABLES Final R esult [facility] [place] [address] * POCT hemoglobin A1c (12/31/2022 2:35 PM CDT) Hgb A1C, POC 5.6 4.0 - 5.6 % [facility] Est Average Gluc POC 114 mg/dL [facility] Comment: The ADA recommends reporting an estimated Average Glucose (eAG) with all Hemoglobin A1c results using the equation derived from a study of 507 normal and diabetic adults. Minority populations were underrepresented and children were not included. (Diabetes Care 31:9872-2036, 2008). The eAG is not equivalent to a fasting glucose. Blood 12/31/2022 2:35 PM CDT 12/31/2022 2:35 PM CDT Vidal García MD POINT OF CARE TEST ORDERABLE S Final Result [facility] Department [place] [address] from Last 3 Months or Most Recently Relevant to Health Maintenance [place] [address] [place] [address] MEDICARE IDPA [facility] IDPA [facility] Advance Directives For more information, please contact: [phone] * Full Code (Latest Code Status on File) Date Activated Date Inactivated Comments 01/02/2023 9:56 PM 01/06/2023 5:23 PM * Full Code Date Activated Date Inactivated Comments 01/02/2023 9:56 PM 01/02/2023 9:56 PM * Full Code Date Activated Date Inactivated Comments 01/02/2023 9:56 PM 01/02/2023 9:56 PM Care Teams Linoleum Installer Relationship Specialty Start Date End Date Booker Sears MD [address] [place] [address] PCP - General Internal Medicine 05/19/23 [place]ía [place] [address] [address] Consulting Physician Vascular Surgery 01/06/23
[2024-10-09 16:52] LABS: Alanine Aminotransferase 19 U/L (6-50); Albumin Level 4.1 g/dL (3.5-5.1); Alkaline Phosphatase 82 U/L (38-126); Anion Gap 11 mmol/L (4-12); Aspartate Amino Transferase 24 U/L (17-59); Bilirubin,Total 0.7 mg/dL (0.2-1.3); Blood Urea Nitrogen 36 mg/dL (9-20); Calcium 8.7 mg/dL (8.4-10.2); Carbon Dioxide 23 mmol/L (22-30); Chloride 105 mmol/L (98-107); Estimated CRCL calculation 38 ml/min; Estimated Glomerular Filt Rate 40; Glucose 178 mg/dL (65-110); Potassium 4.9 mmol/L (3.4-5.0); Sodium 139 mmol/L (137-145)
[2024-10-09 16:59] LABS: Influenza A QL RT-PCR Negative (Negative); Influenza B QL RT-PCR Negative (Negative); RSV RNA, RT-PCR Positive (Negative); SARS-CoV-2 RNA PCR Negative (Negative)
[2024-10-09] MEDS: ALBUTEROL SULFATE NEB 2.5 MG/3 ML INH 5 MG INHALATION (17:03)
--- NOTE | 2024-10-09 18:07 | ED_ITS ---
HPI - General Adult General Chief complaint: Weakness Stated complaint: weakness Time Seen by Provider: 10/09/24 15:59 History of Present Illness HPI narrative: 78-year-old male presents to the emergency department for evaluation for increased work of breathing shortness of breath and nausea vomiting. Patient does reside at a local care facility. Does report feeling decreased appetite with associated nausea and weakness. Patient is ill-appearing at time of initial evaluation. Patient does have a very productive cough. Patient denies any history of smoking, denies any underlying lung disease. 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 Related Data Allergies Allergy/AdvReac Type Severity Reaction Status Date / Time Penicillins Allergy Unknown Rash Verified 10/09/24 16:49 Review of Systems 2 Review of Systems: All systems reviewed & are unremarkable except as noted in HPI and below Exam 2 Narrative: APPEARANCE: Ill-appearing HEAD: normocephalic, atraumatic. EYES: PERRLA/EOMI, conjunctivae clear. NOSE: Normal no drainage EARS:TMS clear with good light reflex. THROAT: Pharynx clear, no exudate. NECK: Supple. No adenopathy, no masses. RESPIRATORY: Wheezing respirations bilaterally CARDIOVASCULAR: Regular rate and rhythm without murmurs rubs or gallops. ABDOMINAL: Soft, nontender, nondistended, normal bowel sounds MUSCULOSKELETAL: Moves all extremities. Strength/ROM intact, No edema, No calf tenderness. NEURO: Alert. Cranial nerves II through XII intact. Grossly intact SKIN: Warm, dry. Normal Color Course Vital Signs Vital signs: Vital Signs Temperature 97.6 F 10/09/24 15:56 Pulse Rate 97 10/09/24 15:56 Respiratory Rate 16 10/09/24 15:56 Blood Pressure 110/57 L 10/09/24 15:56 Pulse Oximetry 92 10/09/24 15:56 Oxygen Delivery Room Air 10/09/24 15:56 Temperature 97.6 F 10/09/24 15:56 Pulse Rate 89 10/09/24 17:16 Respiratory Rate 18 10/09/24 17:16 Blood Pressure 103/57 L 10/09/24 17:03 Pulse Oximetry 94 10/09/24 17:34 Oxygen Delivery Room Air 10/09/24 15:56 Medical Decision Making [facility] Narrative Medical decision making narrative: 78-year-old male presenting to the emergency department for evaluation for nausea vomiting cough congestion and worsening shortness of breath. Patient did test positive for RSV. Chest x-ray was concerning for pneumonitis. CT scan was concerning for underlying pneumonia. Patient did have extensive wheezing on exam but did have some improvement with nebulized albuterol. Patient is currently afebrile with no leukocytosis and hemoglobin of 13.5. No significant acute abnormalities on the patient's CMP UA was negative for infection patient was positive for RSV. Patient was started on IV Levaquin for concern for underlying pneumonia. Patient was started on Tamiflu for diagnosis of RSV. Case was discussed with hospitalist patient was accepted for admission. Differential Diagnosis Differential Diagnosis: COVID, RSV, influenza, pneumonia, COPD Vital Signs Vital Signs: Vital Signs Temperature 97.6 F 10/09/24 15:56 Pulse Rate 97 10/09/24 15:56 Respiratory Rate 16 10/09/24 15:56 Blood Pressure 110/57 L 10/09/24 15:56 Pulse Oximetry 92 10/09/24 15:56 Oxygen Delivery Room Air 10/09/24 15:56 Temperature 97.6 F 10/09/24 15:56 Pulse Rate 89 10/09/24 17:16 Respiratory Rate 18 10/09/24 17:16 Blood Pressure 103/57 L 10/09/24 17:03 Pulse Oximetry 94 10/09/24 17:34 Oxygen Delivery Room Air 10/09/24 15:56 Lab Data Lab results reviewed: Yes I reviewed the patient's lab results. 10/09/24 16:18 10/09/24 16:18 Labs: Lab Results 10/09/24 Range/Units 16:18 WBC 6.7 (4.5-10.0) K/mm3 RBC 4.49 L (4.6-6.20) M/mm3 Hgb 13.5 L (14.0-18.0) g/dL Hct 42.5 (42.0-52.0) % MCV 94.7 (80-100) fl MCH 30.1 (26-34) pg MCHC 31.8 L (32-36) g/dl RDW 13.5 (11.5-14.5) % Plt Count 173 (150-375) k/mm3 MPV 10.2 (7.4-10.4) fl Immature Gran % (Auto) 0.3 (0-0.5) % Neut % (Auto) 52.0 (45.5-73.1) % Lymph % (Auto) 27.9 (18.3-44.2) % [place] % (Auto) 13.4 H (2.6-8.5) % Eos % (Auto) 5.8 H (0-4.4) % Baso % (Auto) 0.6 (0.2-1.2) % Lymph # (Auto) 1.87 (0.9-3.2) K/mm3 [place] # (Auto) 0.9 H (0.1-0.6) K/mm3 Eos # (Auto) 0.4 H (0-0.3) K/mm3 Baso # (Auto) 0.0 (0.0-0.1) K/mm3 Abs Immat Gran (auto) 0.02 (0.00-0.031) K/mm3 Absolute Neuts (auto) 3.5 (1.3-6.7) K/mm3 Absolute Nucleated RBC 0.000 (0.0-0.012) K/mm3 Nucleated RBC % 0.0 (0.0-0.2) % Sodium 139 (137-145) mmol/L Potassium 4.9 (3.4-5.0) mmol/L Chloride 105 (98-107) mmol/L Carbon Dioxide 23 (22-30) mmol/L Anion Gap 11 (4-12) mmol/L BUN 36 H (9-20) mg/dL Creatinine 1.67 H (0.7-1.3) mg/dL Estim Creat Clear Calc 38 ml/min Estimated GFR 40 L (59 - ) Glucose 178 H (65-110) mg/dL Calcium 8.7 (8.4-10.2) mg/dL Total Bilirubin 0.7 (0.2-1.3) mg/dL AST 24 (17-59) U/L ALT 19 (6-50) U/L Alkaline Phosphatase 82 (38-126) U/L Total Protein 7.0 (6.3-8.2) g/dL Albumin 4.1 (3.5-5.1) g/dL Urine Color Yellow (Yellow) Urine Appearance Clear (Clear) Urine pH 5.0 (5.0-9.0) Ur Specific [place] 1.014 (1.001-1.035) Urine Protein Negative (Negative) mg/dL Urine Glucose (UA) Negative (Negative) mg/dL Urine Ketones Negative (Negative) mg/dL Ur Blood (Man) Negative (Negative) Urine Nitrate Negative (Negative) Urine Bilirubin Negative (Negative) Urine Urobilinogen 0.2 (<2.0) mg/dL Leukocyte Esterase Rfl Negative (Negative) CHANDLER/UL Influenza A (RT-PCR) Negative (Negative) Influenza B (RT-PCR) Negative (Negative) RSV (RT-PCR) Positive A (Negative) SARS-CoV-2 RNA (RT-PCR) Negative (Negative) Imaging Data Radiologist's impression: Impressions Chest X-Ray 10/09/24 16:52 IMPRESSION: Cardiomegaly with cardiac decompensation and pulmonary edema. Overlying pneumonitis is not excluded. Chest CT 10/09/24 17:34 IMPRESSION: 1. Dependent atelectatic changes in the lower lobes with possibility of a pneumonitis cannot be excluded. 2. Focal atelectasis versus pneumonia in the lingula. 3. Cholelithiasis 4. Soft tissue density in the left kidney ultrasound evaluation advised. 5. Small sliding hiatus hernia. Discharge Plan Discharge Clinical Impression: RSV infection, Pneumonia Patient Disposition: Still a Patient Condition: Stable
[2024-10-09] MEDS: levoFLOXacin 750 MG/D5W 150 ML 750 MG/150 ML BAG 100 MG IVPB (18:49)
[2024-10-09] MEDS: ALBUTEROL SULFATE NEB 2.5 MG/3 ML INH INHALATION (20:14)
--- NOTE | 2024-10-09 20:55 | P.HP_ITS ---
H&P: HPI History of Present Illness Date/Time: 10/09/24 20:00 Chief Complaint: Weakness. Narrative: This is a pleasant 78-year-old male with hypertension, hyperlipidemia, type 2 diabetes mellitus, chronic kidney disease stage 4, hypothyroidism, and benign prostatic hyperplasia who presented to the emergency department via EMS from [facility] for evaluation of weakness. The patient provides history. He has not b een about a day with symptoms to weakness fatigue nausea, vomiting, hacking cough, and shortness of breath. There are several sick people at his facility. He shares a room with his in she has not yet had any symptoms. He denies fever, headache, sore throat, chest pain, pleuritic pain, diarrhea, and dysuria. In the ED: Vital signs were stable on arrival with an SpO2 of 94% on air. Labs are significant for hemoglobin of 13.5, BUN 36, creatinine 1.67, glucose 178. Urinalysis was unremarkable. He tested positive for RSV. Chest CT showed dependent atelectatic changes in the lower lobes with possibility of pneumonitis and is soft tissue density in the left kidney. He received a nebulizer treatment and was started on levofloxacin he is being admitted in this setting for further care. Review of Systems Review of Systems: 12 systems were reviewed and are negativ e except for as per HPI. [facility] Past Medical History Medical History (Updated 10/09/24 @ 22:29 by Rosa Del Rio PA-C) Hypothyroidism Embolism or thrombosis of aorta Vitamin D deficiency Overactive bladder Chronic kidney disease, stage 4 (severe) Benign prostatic hyperplasia Hyperlipidemia Hypertension Family History Family History Father Aneurysm Mother CHF (congestive heart failure) Social History Social History (Updated 10/09/24 @ 22:24 by Rosa Del Rio PA-C) Social History: Surrogate medical decision maker: Danaydirk Christiansen, spouse. Code status: Full code. Smoking status: Never smoker Alcohol intake: former Substance use: never Substance use type: does not use Do You Feel Safe in your Home?: Yes Lack of Transportation: No Lack of Food: Never True Current Housing: I Have Housing Concerned About Future Housing: No Difficulty Paying Gas/Electric Bills: No Difficulty Paying for Meds: No Currently Unemployed: No Education: High School Diploma/GED Difficulty w/ Childcare or Family Care: No Living arrangements: [facility] Additional living arrangements comments: Lives at [facility] and rooms with his spouse. Spiritual care concerns: No Meds Home Medications and Allergies Home Medications ?Medication ?Instructions ?Recorded ?Confirmed ?Type acetaminophen 500 mg capsule 1,000 mg PO Q4H PRN pain 10/09/24 10/09/24 History amlodipine 10 mg tablet 10 mg PO DAILY 10/09/24 10/09/24 History aspirin 81 mg capsule 81 mg PO DAILY 10/09/24 10/09/24 History atorvastatin 10 mg tablet 10 mg PO HS 10/09/24 10/09/24 History benazepril 20 mg tablet 20 mg PO DAILY 10/09/24 10/09/24 History cholecalciferol (vitamin D3) 50 50 mcg PO DAILY 10/09/24 10/09/24 History mcg (2,000 unit) tablet (D3 DOTS) famotidine 20 mg tablet 20 mg PO DAILY 10/09/24 10/09/24 History furosemide 20 mg tablet 20 mg PO DAILY 10/09/24 10/09/24 History guaifenesin 100 mg/5 mL oral 100 mg PO Q4H PRN cough 10/09/24 10/09/24 History liquid (Tussin Chest Congestion) levothyroxine 75 mcg tablet 75 mcg PO DAILY 10/09/24 10/09/24 History multivitamin (Daily Multi-Vitamin 1 tablet PO DAILY 10/09/24 10/09/24 History tablet) ondansetron HCl 4 mg tablet 4 mg PO Q8H 10/09/24 10/09/24 History oxybutynin chloride 5 mg tablet 5 mg PO DAILY 10/09/24 10/09/24 History potassium chloride 10 mEq 10 meq PO .COMPLEX 10/09/24 10/09/24 History capsule,extended release sennosides 8.6 mg tablet (senna) 8.6 mg PO BID PRN constipation 10/09/24 10/09/24 History tamsulosin 0.4 mg capsule 0.4 mg PO DAILY 10/09/24 10/09/24 History Allergies Allergy/AdvReac Type Severity Reaction Status Date / Time Penicillins Allergy Unknown Rash Verified 10/09/24 16:49 Vital Signs Vital Signs - 24 hr 10/09/24 15:56 10/09/24 16:02 10/09/24 16:15 Temperature 97.6 F Pulse Rate 97 97 91 Respiratory Rate 16 25 H Blood Pressure 110/57 L Pulse Oximetry 92 89 L 92 Oxygen Delivery Room Air 10/09/24 16:30 10/09/24 16:33 10/09/24 17:02 Temperature Pulse Rate 87 Respiratory Rate 18 Blood Pressure 114/57 L Pulse Oximetry 93 91 Oxygen Delivery 10/09/24 17:02 10/09/24 17:03 10/09/24 17:15 Temperature Pulse Rate Respiratory Rate Blood Pressure 103/57 L Pulse Oximetry 100 100 100 Oxygen Delivery 10/09/24 17:16 10/09/24 17:34 10/09/24 18:49 Temperature Pulse Rate 89 96 Respiratory Rate 18 13 Blood Pressure 107/71 Pulse Oximetry 94 94 Oxygen Delivery 10/09/24 19:02 10/09/24 19:32 10/09/24 20:01 Temperature Pulse Rate 101 H 105 H 102 H Respiratory Rate 21 H 25 H 24 H Blood Pressure 114/54 L 101/65 109/73 Pulse Oximetry 99 98 96 Oxygen Delivery 10/09/24 20:16 10/09/24 20:22 Temperature Pulse Rate 95 93 Respiratory Rate 16 18 Blood Pressure Pulse Oximetry Oxygen Delivery Exam Narrative: General: Mildly ill-appearing elderly gentleman the semi-Diaz in bed. Weight: 1111 kg. BMI: 38.4. HEENT: PERRL, EOMI. Sclera anicteric. Conjunctiva mildly injected. Tacky mucous membranes. Neck: Supple. No JVD or lymphadenopathy. Respiratory: Respirations are nonlabored he is in no respiratory distress. Lung sounds are diminished and coarse with occasional expiratory wheezing. Cardiovascular: Tachycardic with normal S1-S2. Gastrointestinal: Abdomen is soft, nontender, and nondistended with positive bowel sounds. Skin: Warm and dry. No rash or lesions on limited exam. Extremities: No cyanosis or clubbing. Bilateral pedal edema. No palpable knots or cords. Neurological: Alert. Cranial nerves 2-12 are grossly intact. No gross focal deficits to casual conversation. Psychiatric: Pleasant and cooperative with normal mood and affect. H&P: Results Labs Labs: Short CBC 10/09/24 Range/Units 16:18 WBC 6.7 (4.5-10.0) K/mm3 Hgb 13.5 L (14.0-18.0) g/dL Hct 42.5 (42.0-52.0) % Plt Count 173 (150-375) k/mm3 BMP 10/09/24 16:18 Sodium 139 Potassium 4.9 Chloride 105 Carbon Dioxide 23 BUN 36 H Creatinine 1.67 H Glucose 178 H Calcium 8.7 Liver Function 10/09/24 Range/Units 16:18 Total Bilirubin 0.7 (0.2-1.3) mg/dL AST 24 (17-59) U/L ALT 19 (6-50) U/L Alkaline Phosphatase 82 (38-126) U/L Albumin 4.1 (3.5-5.1) g/dL Urine 10/09/24 Range/Units 16:18 Urine Color Yellow (Yellow) Urine Appearance Clear (Clear) Urine pH 5.0 (5.0-9.0) Ur Specific [place] 1.014 (1.001-1.035) Urine Protein Negative (Negative) mg/dL Urine Glucose (UA) Negative (Negative) mg/dL Impressions Chest X-Ray 10/09/24 16:52 IMPRESSION: 1. Cardiomegaly with cardiac decompensation and pulmonary edema. Overlying pneumonitis is not excluded. Chest CT 10/09/24 17:34 IMPRESSION: 1. Dependent atelectatic changes in the lower lobes with possibility of a pneumonitis cannot be excluded. 2. Focal atelectasis versus pneumonia in the lingula. 3. Cholelithiasis 4. Soft tissue density in the left kidney ultrasound evaluation advised. 5. Small sliding hiatus hernia. Assessment and Plan Assessment and plan (1) RSV infection: Code(s): B33.8 - Other specified viral diseases Status: Acute (2) Abnormal finding on diagnostic imaging of kidney: Code(s): R93.429 - Abnormal radiologic findings on diagnostic imaging of unspecified kidney Status: Acute (3) Hypertension: Code(s): I10 - Essential (primary) hypertension Status: Acute (4) Chronic kidney disease, stage 4 (severe): Code(s): N18.4 - Chronic kidney disease, stage 4 (severe) Status: Acute (5) Benign prostatic hyperplasia: Code(s): N40.0 - Benign prostatic hyperplasia without lower urinary tract symptoms Status: Acute (6) Hypothyroidism: Code(s): E03.9 - Hypothyroidism, unspecified Status: Acute Plan The patient presented to the emergency department with complaints weakness nausea, vomiting, cough, and shortness of breath as detailed in HPI. Labs, imaging, EKG, and all reports were personally reviewed. He tested positive for RSV and continues to have pretty significant coughing jags. Continue scheduled bronchodilators. Mucinex and Cornet ordered to help mobilize secretions. Otherwise supportive care. CT scan does show findings of focal atelectasis versus possible developing pneumonia and although he is afebrile with normal WBC count, we will continue with empiric antibiotics. Sputum culture has been ordered. Check procalcitonin. Renal ultrasound ordered to evaluate soft tissue density seen in the left kidney on CT. Vital signs are stable. He reportedly has stage 4 kidney disease and estimated GFR today is 40. I do not that he is on any medication for diabetes. Check hemoglobin A1c and initiate sliding scale insulin, Accu-Cheks, and hypoglycemic protocol. Continue levothyroxine and check TSH. The rest of his home medications will be reviewed and resumed as appropriate. Findings and treatment plan were discussed with the patient. Questions were solicited and answered to satisfaction. The patient's medical management will be taken over by the hospitalist team in a.m. Quality VTE Prophylaxis VTE prophylaxis: pharmacologic ordered The patient has been admitted under observation status. Hospitalist [facility] Advance Care Plan I have confirmed that the patient's Advanced Care Plan is present, code status is documented, or surrogate decision maker is listed in patient medical record.: Yes Medication Reconciliation I have utilized all available resources to obtain, update and review the patients current medications (includes all prescriptions, OTC, herbals, cannabis, and nutritional supplements).: Yes
[2024-10-09] MEDS: OSELTAMIVIR PHOSPHATE 30 MG CAPSULE PO (21:13)
--- NOTE | 2024-10-09 21:43 | ADMGEN ---
This patient, Saw Christiansen, was admitted to Medical Room [id number]. Patient/family oriented to hospital policies and general routines including ID bracelet, bed and alarms, visiting hours, pain management, procedures, bathroom and other care routines, personal items, smoking policy, room service/diet, and visiting hours. Information on how to activate the Rapid Response Team has been discussed. Patient/Family are encouraged to report perceived risks to care and to ask questions if they do not understand what they are told or what they should do.
[2024-10-09 22:52] LABS: Hemoglobin A1C 6.8 % (<5.7)
[2024-10-09] MEDS: guaiFENesin 12 HR 600 MG TABCR 1200 MG PO (23:40)
[2024-10-09] MEDS: ATORVASTATIN 10 MG TABLET PO (23:40)
[2024-10-10] VITALS (14 sets, daily range): BP systolic 102–128; BP diastolic 51–74; PULSE 82–105; RESP 16–20; TEMP 36.1–36.4; O2SAT 90–95
[2024-10-10 00:11] LABS: Glucose Point of Care 186 mg/dl (65-105)
[2024-10-10] MEDS: ALBUTEROL SULFATE NEB 2.5 MG/3 ML INH INHALATION ×4 (01:20→19:53)
[2024-10-10 05:30] LABS: Hematocrit 41.4 % (42.0-52.0); Mean Corpuscular HGB Conc 31.4 g/dl (32-36); Mean Corpuscular Hemoglobin 30.2 pg (26-34); Mean Corpuscular Volume 96.1 fl (80-100); Mean Platelet Volume 10.2 fl (7.4-10.4); Platelet Count Result 179 k/mm3 (150-375); Red Blood Count 4.31 M/mm3 (4.6-6.20); Red Cell Distribution Width 13.5 % (11.5-14.5); White Blood Count 6.1 K/mm3 (4.5-10.0)
[2024-10-10 05:51] LABS: Anion Gap 14 mmol/L (4-12); Blood Urea Nitrogen 39 mg/dL (9-20); Calcium 8.6 mg/dL (8.4-10.2); Carbon Dioxide 23 mmol/L (22-30); Chloride 105 mmol/L (98-107); Estimated CRCL calculation 34 ml/min; Estimated Glomerular Filt Rate 34; Glucose 147 mg/dL (65-110); Magnesium 1.7 mg/dL (1.6-2.3); Potassium 5.1 mmol/L (3.4-5.0); Sodium 142 mmol/L (137-145)
[2024-10-10] MEDS: LEVOTHYROXINE SODIUM 75 MCG TABLET PO (06:00)
[2024-10-10 06:05] LABS: Procalcitonin 0.1 ng/mL
--- NOTE | 2024-10-10 07:26 | PM.IMPN ---
Progress Note: A&P Assessment and Plan (1) RSV infection: Code(s): B33.8 - Other specified viral diseases Status: Acute Assessment and Plan: Viral panel: RSV Tamiflu 10/09-10/14 Scheduled bronchodilators Mucinex and Cornet ordered to help mobilize secretions. Otherwise supportive care. Chest XR: Cardiomegaly with cardiac decompensation and pulmonary edema. Overlying pneumonitis is not excluded. Chest CT: Dependent atelectatic changes in the lower lobes with possibility of a pneumonitis cannot be excluded. Focal atelectasis versus pneumonia in the lingula. Though he is afebrile with normal WBC count, we will continue with empiric antibiotics. Levaquin started 10/09 Sputum culture has been ordered. Legionella, pneumococcal, mycoplasma ordered. Procalcitonin WNL. MRSA nares positive. Doxycycline started 10/10. (2) Abnormal finding on diagnostic imaging of kidney: Code(s): R93.429 - Abnormal radiologic findings on diagnostic imaging of unspecified kidney Status: Acute Assessment and Plan: He reportedly has stage 4 kidney disease and estimated GFR today is [address]: Soft tissue density in the left kidney ultrasound evaluation advised. Renal ultrasound ordered to evaluate soft tissue density seen in the left kidney on CT. Renal US: 4.8 cm left lower pole renal mass, not definitively cystic. Pre and postcontrast CT or MR recommended to further evaluate. MRI abdomen ordered (3) Hypertension: Code(s): I10 - Essential (primary) hypertension Status: Acute Assessment and Plan: Chronic - lasix 20 mg daily - benazepril 20 mg daily, getting lisinopril here - amlodipine 10 mg daily - blood pressures remain stable, continue to monitor (4) Chronic kidney disease, stage 4 (severe): Code(s): N18.4 - Chronic kidney disease, stage 4 (severe) Status: Acute Assessment and Plan: He reportedly has stage 4 kidney disease. GFR 40 on admission, 34 on am labs Monitor I/O, decreased urine output. NS 500 bolus x1 at 75 given. Avoid nephrotoxic medications and renally dose medications (5) Benign prostatic hyperplasia: Code(s): N40.0 - Benign prostatic hyperplasia without lower urinary tract symptoms Status: Acute Assessment and Plan: Chronic, continue flomax. (6) Hypothyroidism: Code(s): E03.9 - Hypothyroidism, unspecified Status: Acute Assessment and Plan: Continue levothyroxine, TSH WNL. Time Spent With Patient Time with patient: 25 - 35 minutes Subjective Date/time seen: 10/10/24 07:26 Interval history: 78-year-old male with hypertension, hyperlipidemia, type 2 diabetes mellitus, chronic kidney disease stage 4, hypothyroidism, and benign prostatic hyperplasia who presented to the hospital via EMS from [facility] for evaluation of weakness. Patient is pleasant lying in bed. He continues to have a coarse non productive cough. He denies shortness of breath, chest pain, palpitations, nausea/vomiting and abodminal pain. Patient is having decreased urine output, he states he has not been drinking much water. Encouraged oral intake and will give a 500 ml bolus. Review of Systems Review of Systems: All systems reviewed & are unremarkable except as noted in HPI and below Exam Narrative: AF HR 82 RR 16 SPO2 94 BP 118/74 General: male in no acute respiratory distress who is nontoxic appearing, lying semi recumbent in bed. HEENT: Normocephalic. Atraumatic. Extraocular movement intact. Sclera clear and anicteric. No facial asymmetry. Chest: Lungs are corse to auscultation bilaterally, improve with coughing. Slight expiratory wheezing. CV: Heart was regular rate and rhythm. S1/S2. No murmurs, gallops, or rubs. Abd: Abdomen was soft. Nontender. Nondistended. Positive bowel sounds. Ext: No clubbing, cyanosis, or edema. DP pulses bilaterally. Neuro: Patient is alert. Speech is clear. Objective Data Vital Signs Vital Signs: Vital Signs - 24 hr 10/09/24 15:56 10/09/24 16:02 10/09/24 16:15 Temperature 97.6 F Pulse Rate 97 97 91 Respiratory Rate 16 25 H Blood Pressure 110/57 L Pulse Oximetry 92 89 L 92 Oxygen Delivery Room Air 10/09/24 16:30 10/09/24 16:33 10/09/24 17:02 Temperature Pulse Rate 87 Respiratory Rate 18 Blood Pressure 114/57 L Pulse Oximetry 93 91 Oxygen Delivery 10/09/24 17:02 10/09/24 17:03 10/09/24 17:15 Temperature Pulse Rate Respiratory Rate Blood Pressure 103/57 L Pulse Oximetry 100 100 100 Oxygen Delivery 10/09/24 17:16 10/09/24 17:34 10/09/24 18:49 Temperature Pulse Rate 89 96 Respiratory Rate 18 13 Blood Pressure 107/71 Pulse Oximetry 94 94 Oxygen Delivery 10/09/24 19:02 10/09/24 19:32 10/09/24 20:01 Temperature Pulse Rate 101 H 105 H 102 H Respiratory Rate 21 H 25 H 24 H Blood Pressure 114/54 L 101/65 109/73 Pulse Oximetry 99 98 96 Oxygen Delivery 10/09/24 20:16 10/09/24 20:22 10/09/24 21:13 Temperature Pulse Rate 95 93 107 H Respiratory Rate 16 18 17 Blood Pressure 112/71 Pulse Oximetry 94 Oxygen Delivery 10/09/24 22:33 10/10/24 01:20 10/10/24 01:28 Temperature 98.2 F Pulse Rate 102 H 100 101 H Respiratory Rate 16 20 20 Blood Pressure 120/72 Pulse Oximetry 94 Oxygen Delivery Intake/Output Intake/Output: Intake & Output 10/07/24 10/08/24 10/09/24 10/11/24 23:59 23:59 23:59 00:59 Intake Total 150 Output Total 500 Balance -350 Meds/Results Medications: Active Medications Generic Name Dose Route Start Last Admin Trade Name Freq PRN Reason Stop Dose Admin Acetaminophen 650 mg 10/09/24 22:31 Acetaminophen 325 Mg Tablet PO Q6H PRN Mild Pain (1-3) or Fever Albuterol 2.5 mg 10/09/24 20:00 10/10/24 01:20 Albuterol Sulfate Neb 2.5 Mg/3 Ml Inh INHALATION 2.5 mg Q6HRT SHAMEKA Administration Amlodipine Besylate 10 mg 10/10/24 09:00 Amlodipine Besylate 10 Mg Tablet PO DAILY SHAMEKA Aspirin 81 mg 10/10/24 09:00 Aspirin 81 Mg Chewable Tablet PO DAILY SHAMEKA Atorvastatin Calcium 10 mg 10/09/24 22:40 10/09/24 23:40 Atorvastatin 10 Mg Tablet PO 10 mg HS SHAMEKA Administration Dextrose 12.5 gm 10/09/24 22:31 Dextrose 50% 25 Gm/50 Ml Syringe IV PUSH PRN PRN Hypoglycemia Protocol Enoxaparin Sodium 40 mg 10/10/24 09:00 Enoxaparin 40 Mg/0.4 Ml Syringe SUB-Q DAILY SHAMEKA Famotidine 20 mg 10/10/24 09:00 Famotidine 20 Mg Tablet PO DAILY [facility] Furosemide 20 mg 10/10/24 09:00 Furosemide 20 Mg Tablet PO DAILY [facility]KA Glucagon 1 mg 10/09/24 22:31 Glucagon For Inj 1 Mg Vial IM PRN PRN Hypoglycemia Protocol Glucose 15 gm 10/09/24 22:31 Glucose Oral Gel 15 Gm Of Glucse In 37.5 Gm Tube PO PRN PRN Hypoglycemia Protocol Guaifenesin 1,200 mg 10/09/24 22:35 10/09/24 23:40 Guaifenesin 12 Hr 600 Mg Tabcr PO 1,200 mg Q12HR SHAMEKA Administration Guaifenesin 100 mg 10/09/24 22:34 Guaifenesin 200 Mg/10 Ml Udc PO Q4H PRN cough Levofloxacin/Dextrose 750 mg in 150 mls @ 100 mls/hr 10/11/24 18:00 Levaquin 750 Mg/D5w 150 Ml IVPB Q48H SHAMEKA Dextrose 1,000 mls @ 100 mls/hr 10/09/24 22:31 Dextrose 5% 1,000 Ml IVPB PRN PRN Hypoglycemia Protocol Insulin Aspart 3 - 6 units 10/10/24 08:00 Insulin Aspart (*Bkc) 100 Units/Ml SUB-Q [facility] Protocol Insulin Aspart 1 - 3 units 10/09/24 22:35 10/10/24 00:08 Insulin Aspart (*Bkc) 100 Units/Ml SUB-Q Not Given HS [facility] Protocol Levothyroxine Sodium 75 mcg 10/10/24 06:30 Levothyroxine Sodium 75 Mcg Tablet PO DAILY@0630 [facility] Lisinopril 20 mg 10/10/24 09:00 Lisinopril 20 Mg Tablet PO DAILY [facility] Multivitamins Therapeutic 1 tablet 10/10/24 09:00 Multivitamins Therapeutic Tab (*Bkc) PO DAILY [facility] Oseltamivir Phosphate 30 mg 10/09/24 21:00 10/09/24 21:13 Oseltamivir Phosphate 30 Mg Capsule PO 10/14/24 20:59 30 mg Q12HR SHAMEKA Administration Oxybutynin Chloride 5 mg 10/10/24 09:00 Oxybutynin Chloride 5 Mg Tablet PO DAILY [facility] Potassium Chloride 10 meq 10/10/24 09:00 Potassium Chloride 10 Meq Er Tablet PO Q48H [facility] Senna 8.6 mg 10/09/24 22:34 Sennosides 8.6 Mg Tablet PO BID PRN constipation Tamsulosin HCl 0.4 mg 10/10/24 09:00 Tamsulosin Hcl 0.4 Mg Capsule PO DAILY SH[facility]KA Vitamin D 2,000 units 10/10/24 09:00 Cholecalciferol 1,000 Units Tablet PO DAILY [facility] Radiology Results: ITS Impressions Chest X-Ray 10/09/24 16:52 IMPRESSION: Cardiomegaly with cardiac decompensation and pulmonary edema. Overlying pneumonitis is not excluded. Chest CT 10/09/24 17:34 IMPRESSION: 1. Dependent atelectatic changes in the lower lobes with possibility of a pneumonitis cannot be excluded. 2. Focal atelectasis versus pneumonia in the lingula. 3. Cholelithiasis 4. Soft tissue density in the left kidney ultrasound evaluation advised. 5. Small sliding hiatus hernia. Labs Labs: Laboratory Results - last 24 hr 10/09/24 10/09/24 10/10/24 16:17 16:18 00:07 WBC 6.7 RBC 4.49 L Hgb 13.5 L Hct 42.5 MCV 94.7 MCH 30.1 MCHC 31.8 L RDW 13.5 Plt Count 173 MPV 10.2 Immature Gran % (Auto) 0.3 Neut % (Auto) 52.0 Lymph % (Auto) 27.9 [place] % (Auto) 13.4 H Eos % (Auto) 5.8 H Baso % (Auto) 0.6 Lymph # (Auto) 1.87 [place] # (Auto) 0.9 H Eos # (Auto) 0.4 H Baso # (Auto) 0.0 Abs Immat Gran (auto) 0.02 Absolute Neuts (auto) 3.5 Absolute Nucleated RBC 0.000 Nucleated RBC % 0.0 Sodium 139 Potassium 4.9 Chloride 105 Carbon Dioxide 23 Anion Gap 11 BUN 36 H Creatinine 1.67 H Estim Creat Clear Calc 38 Estimated GFR 40 L Glucose 178 H POC Capillary Glucose 186 H Hemoglobin A1c 6.8 H Calcium 8.7 Magnesium Total Bilirubin 0.7 AST 24 ALT 19 Alkaline Phosphatase 82 Total Protein 7.0 Albumin 4.1 Procalcitonin TSH (Reflex) Urine Color Yellow Urine Appearance Clear Urine pH 5.0 Ur Specific [place] 1.014 Urine Protein Negative Urine Glucose (UA) Negative Urine Ketones Negative Ur Blood (Man) Negative Urine Nitrate Negative Urine Bilirubin Negative Urine Urobilinogen 0.2 Leukocyte Esterase Rfl Negative Influenza A (RT-PCR) Negative Influenza B (RT-PCR) Negative RSV (RT-PCR) Positive A SARS-CoV-2 RNA (RT-PCR) Negative 10/10/24 05:11 WBC 6.1 RBC 4.31 L Hgb 13.0 L Hct 41.4 L MCV 96.1 MCH 30.2 MCHC 31.4 L RDW 13.5 Plt Count 179 MPV 10.2 Immature Gran % (Auto) Neut % (Auto) Lymph % (Auto) [place] % (Auto) Eos % (Auto) Baso % (Auto) Lymph # (Auto) [place] # (Auto) Eos # (Auto) Baso # (Auto) Abs Immat Gran (auto) Absolute Neuts (auto) Absolute Nucleated RBC Nucleated RBC % Sodium 142 Potassium 5.1 H Chloride 105 Carbon Dioxide 23 Anion Gap 14 H BUN 39 H Creatinine 1.89 H Estim Creat Clear Calc 34 Estimated GFR 34 L Glucose 147 H POC Capillary Glucose Hemoglobin A1c Calcium 8.6 Magnesium 1.7 Total Bilirubin AST ALT Alkaline Phosphatase Total Protein Albumin Procalcitonin 0.1 TSH (Reflex) 1.700 Urine Color Urine Appearance Urine pH Ur Specific [place] Urine Protein Urine Glucose (UA) Urine Ketones Ur Blood (Man) Urine Nitrate Urine Bilirubin Urine Urobilinogen Leukocyte Esterase Rfl Influenza A (RT-PCR) Influenza B (RT-PCR) RSV (RT-PCR) SARS-CoV-2 RNA (RT-PCR) Quality VTE Prophylaxis VTE prophylaxis: pharmacologic ordered
[2024-10-10 07:53] LABS: MRSA (PCR) DETECTED (NOT DETECTE)
[2024-10-10 08:48] LABS: Glucose Point of Care 164 mg/dl (65-105)
[2024-10-10] MEDS: MULTIVITAMINS THERAPEUTIC TAB (*BKC) 1 TABLET PO (09:16)
[2024-10-10] MEDS: FUROSEMIDE 20 MG TABLET PO (09:16)
[2024-10-10] MEDS: guaiFENesin 12 HR 600 MG TABCR 1200 MG PO ×2 (09:16→20:32)
[2024-10-10] MEDS: ENOXAPARIN 40 MG/0.4 ML SYRINGE SUB-Q (09:16)
[2024-10-10] MEDS: OSELTAMIVIR PHOSPHATE 30 MG CAPSULE PO ×2 (09:16→20:32)
[2024-10-10] MEDS: CHOLECALCIFEROL 1,000 UNITS TABLET 2000 UNITS PO (09:16)
[2024-10-10] MEDS: ASPIRIN 81 MG CHEWABLE TABLET PO (09:16)
[2024-10-10] MEDS: lisinopriL 20 MG TABLET PO (09:17)
[2024-10-10] MEDS: TAMSULOSIN HCL 0.4 MG CAPSULE PO (09:17)
[2024-10-10] MEDS: amLODIPine BESYLATE 10 MG TABLET PO (09:18)
[2024-10-10] MEDS: FAMOTIDINE 20 MG TABLET PO (09:18)
[2024-10-10] MEDS: oxyBUTYnin CHLORIDE 5 MG TABLET PO (09:18)
[2024-10-10 12:06] LABS: Glucose Point of Care 166 mg/dl (65-105)
[2024-10-10] MEDS: SODIUM CHLORIDE 0.9% IV 500 ML 75 ML IV CONT (14:27)
[2024-10-10 17:27] LABS: Glucose Point of Care 165 mg/dl (65-105)
[2024-10-10] MEDS: ATORVASTATIN 10 MG TABLET PO (20:32)
[2024-10-10] MEDS: DOXYCYCLINE HYCLATE 100 MG TABLET PO (20:32)
[2024-10-10] MEDS: INSULIN ASPART (*BKC) 100 UNITS/ML SUB-Q (20:35)
[2024-10-11] VITALS (11 sets, daily range): BP systolic 100–135; BP diastolic 53–65; PULSE 83–102; RESP 16–24; TEMP 36.1–36.3; O2SAT 92–100
[2024-10-11] MEDS: ALBUTEROL SULFATE NEB 2.5 MG/3 ML INH INHALATION ×4 (02:37→19:55)
--- NOTE | 2024-10-11 02:38 | PCRCNOTE ---
Patient declined treatment while sleeping. RT will give treatment, if needed/requested.
[2024-10-11] MEDS: guaiFENesin 200 MG/10 ML UDC 100 MG PO (03:56)
[2024-10-11 04:13] LABS: Glucose Point of Care 222 mg/dl (65-105)
[2024-10-11] MEDS: LEVOTHYROXINE SODIUM 75 MCG TABLET PO (05:51)
[2024-10-11 05:53] LABS: Hemoglobin 12.5 g/dL (14.0-18.0); Mean Corpuscular HGB Conc 31.3 g/dl (32-36); Mean Corpuscular Hemoglobin 30.3 pg (26-34); Mean Corpuscular Volume 97.1 fl (80-100); Mean Platelet Volume 10.3 fl (7.4-10.4); Platelet Count Result 162 k/mm3 (150-375); Red Blood Count 4.12 M/mm3 (4.6-6.20); Red Cell Distribution Width 13.8 % (11.5-14.5); White Blood Count 7.1 K/mm3 (4.5-10.0)
[2024-10-11 06:16] LABS: Alanine Aminotransferase 16 U/L (6-50); Alkaline Phosphatase 70 U/L (38-126); Anion Gap 10 mmol/L (4-12); Aspartate Amino Transferase 18 U/L (17-59); Bilirubin,Total 0.6 mg/dL (0.2-1.3); Blood Urea Nitrogen 44 mg/dL (9-20); Calcium 8.7 mg/dL (8.4-10.2); Carbon Dioxide 24 mmol/L (22-30); Chloride 108 mmol/L (98-107); Estimated CRCL calculation 33 ml/min; Estimated Glomerular Filt Rate 33; Glucose 146 mg/dL (65-110); Potassium 4.5 mmol/L (3.4-5.0); Sodium 142 mmol/L (137-145)
--- NOTE | 2024-10-11 09:04 | P.PNIM_ITS ---
Progress Note: A&P Assessment and Plan (1) RSV infection: Code(s): B33.8 - Other specified viral diseases Status: Acute Assessment and Plan: Viral panel: RSV Tamiflu 10/09-10/14 Scheduled bronchodilators Mucinex and Cornet ordered to help mobilize secretions. Otherwise supportive care. Chest XR: Cardiomegaly with cardiac decompensation and pulmonary edema. Overlying pneumonitis is not excluded. Chest CT: Dependent atelectatic changes in the lower lobes with possibility of a pneumonitis cannot be excluded. Focal atelectasis versus pneumonia in the lingula. Though he is afebrile with normal WBC count, we will continue with empiric antibiotics. Levaquin started 10/09 Sputum culture has been ordered. Legionella, pneumococcal, mycoplasma ordered. Procalcitonin WNL. MRSA nares positive. Doxycycline started 10/10. Denies shortness of breath and remains on room air. Continues to have a dry cough and wheezing on exam. (2) Abnormal finding on diagnostic imaging of kidney: Code(s): R93.429 - Abnormal radiologic findings on diagnostic imaging of unspecified kidney Status: Acute Assessment and Plan: He reportedly has stage 4 kidney disease and estimated GFR today is [address]: Soft tissue density in the left kidney ultrasound evaluation advised. Renal ultrasound ordered to evaluate soft tissue density seen in the left kidney on CT. Renal US: 4.8 cm left lower pole renal mass, not definitively cystic. Pre and postcontrast CT or MR recommended to further evaluate. MRI abdomen ordered (3) Chronic kidney disease, stage 4 (severe): Code(s): N18.4 - Chronic kidney disease, stage 4 (severe) Status: Acute Assessment and Plan: He reportedly has stage 4 kidney disease. 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 BUN/Cr 40/1.67 with GFR 40 on admission, BUN/Cr 44/1.98 with GFR 33 on am labs Monitor I/O, decreased urine output despite fluids Avoid nephrotoxic medications and renally dose medications Nephrology consulted (4) Hypertension: Code(s): I10 - Essential (primary) hypertension Status: Acute Assessment and Plan: Chronic - lasix 20 mg daily - benazepril 20 mg daily, getting lisinopril here - amlodipine 10 mg daily - blood pressures remain stable, continue to monitor (5) Benign prostatic hyperplasia: Code(s): N40.0 - Benign prostatic hyperplasia without lower urinary tract symptoms Status: Acute Assessment and Plan: Chronic, continue flomax. (6) Hypothyroidism: Code(s): E03.9 - Hypothyroidism, unspecified Status: Acute Assessment and Plan: Continue levothyroxine, TSH WNL. Time Spent With Patient Time with patient: 25 - 35 minutes Subjective Date/time seen: 10/11/24 09:04 Interval history: 78-year-old male with hypertension, hyperlipidemia, type 2 diabetes mellitus, chronic kidney disease stage 4, hypothyroidism, and benign prostatic hyperplasia who presented to the hospital via EMS from [facility] for evaluation of weakness. Patient is pleasant sitting up comfortably in his chair. He has no complaints at this time denying chest pain, palpitations, nausea/vomiting, abdominal pain. He continues to endorse slight shortness of breath and has a dry cough. He remains on room air. He notes that he did well working with therapy today however they are recommending SNF at discharge as he requires assistance with standing and ambulation. Coordination following. Review of Systems Review of Systems: All systems reviewed & are unremarkable except as noted in HPI and below Exam Narrative: AF HR 100 RR 20 Spo2 92 BP 100/53 General: male in no acute respiratory distress who is nontoxic appearing, sitting up in chair HEENT: Normocephalic. Atraumatic. Extraocular movement intact. Sclera clear and anicteric. No facial asymmetry. Chest: Lungs are coarse to auscultation bilaterally, improve with coughing. Slight expiratory wheezing. CV: Heart was regular rate and rhythm. Abd: Abdomen was soft. Nontender. Nondistended. Positive bowel sounds. Ext: No clubbing, cyanosis, or edema. DP pulses bilaterally. Neuro: Patient is alert. Speech is clear. Objective Data Vital Signs Vital Signs: Vital Signs - 24 hr 10/10/24 09:15 10/10/24 09:30 10/10/24 13:21 Temperature 97.5 F L Pulse Rate 82 Respiratory Rate 16 Blood Pressure 118/74 Pulse Oximetry 94 94 90 Oxygen Delivery Room Air Room Air Fraction of Inspired Oxygen 21 10/10/24 13:21 10/10/24 13:33 10/10/24 14:00 Temperature 97.2 F L Pulse Rate 97 105 H 95 Respiratory Rate 20 20 18 Blood Pressure 102/51 L Pulse Oximetry 95 Oxygen Delivery Fraction of Inspired Oxygen 10/10/24 19:51 10/10/24 19:51 10/10/24 20:02 Temperature Pulse Rate 95 95 Respiratory Rate 20 20 Blood Pressure Pulse Oximetry Oxygen Delivery Room Air Fraction of Inspired Oxygen 21 10/10/24 20:40 10/10/24 21:20 10/11/24 06:00 Temperature 97.1 F L 97.3 F L Pulse Rate 95 90 Respiratory Rate 16 16 Blood Pressure 128/64 116/59 L Pulse Oximetry 94 94 93 Oxygen Delivery Room Air Fraction of Inspired Oxygen 21 10/11/24 08:46 10/11/24 08:46 10/11/24 09:01 Temperature Pulse Rate 83 86 Respiratory Rate 20 20 Blood Pressure Pulse Oximetry 95 Oxygen Delivery Room Air Fraction of Inspired Oxygen Intake/Output Intake/Output: Intake & Output 10/08/24 10/09/24 10/11/24 10/11/24 23:59 23:59 00:59 23:59 Intake Total 150 790 200 Output Total 500 150 500 Balance -350 640 -300 Meds/Results Medications: Active Medications Generic Name Dose Route Start Last Admin Trade Name Freq PRN Reason Stop Dose Admin Acetaminophen 650 mg 10/09/24 22:31 Acetaminophen 325 Mg Tablet PO Q6H PRN Mild Pain (1-3) or Fever Albuterol 2.5 mg 10/09/24 20:00 10/11/24 08:45 Albuterol Sulfate Neb 2.5 Mg/3 Ml Inh INHALATION 2.5 mg Q6HRT SHAMEKA Administration Amlodipine Besylate 10 mg 10/10/24 09:00 10/10/24 09:18 Amlodipine Besylate 10 Mg Tablet PO 10 mg DAILY [facility] Administration Aspirin 81 mg 10/10/24 09:00 10/10/24 09:16 Aspirin 81 Mg Chewable Tablet PO 81 mg DAILY [facility] Administration Atorvastatin Calcium 10 mg 10/09/24 22:40 10/10/24 20:32 Atorvastatin 10 Mg Tablet PO 10 mg HS SHAMEKA Administration Dextrose 12.5 gm 10/09/24 22:31 Dextrose 50% 25 Gm/50 Ml Syringe IV PUSH PRN PRN Hypoglycemia Protocol Doxycycline Hyclate 100 mg 10/10/24 21:00 10/10/24 20:32 Doxycycline Hyclate 100 Mg Tablet PO 100 mg Q12HR SHAMEKA Administration Enoxaparin Sodium 40 mg 10/10/24 09:00 10/10/24 09:16 Enoxaparin 40 Mg/0.4 Ml Syringe SUB-Q 40 mg DAILY SH[facility]KA Administration Famotidine 20 mg 10/10/24 09:00 10/10/24 09:18 Famotidine 20 Mg Tablet PO 20 mg DAILY [facility] Administration Furosemide 20 mg 10/10/24 09:00 10/10/24 09:16 Furosemide 20 Mg Tablet PO 20 mg DAILY [facility] Administration Glucagon 1 mg 10/09/24 22:31 Glucagon For Inj 1 Mg Vial IM PRN PRN Hypoglycemia Protocol Glucose 15 gm 10/09/24 22:31 Glucose Oral Gel 15 Gm Of Glucse In 37.5 Gm Tube PO PRN PRN Hypoglycemia Protocol Guaifenesin 1,200 mg 10/09/24 22:35 10/10/24 20:32 Guaifenesin 12 Hr 600 Mg Tabcr PO 1,200 mg Q12HR SHAMEKA Administration Guaifenesin 100 mg 10/09/24 22:34 10/11/24 03:56 Guaifenesin 200 Mg/10 Ml Udc PO 100 mg Q4H PRN Administration cough Levofloxacin/Dextrose 750 mg in 150 mls @ 100 mls/hr 10/11/24 18:00 Levaquin 750 Mg/D5w 150 Ml IVPB Q48H SH[facility]KA Dextrose 1,000 mls @ 100 mls/hr 10/09/24 22:31 Dextrose 5% 1,000 Ml IVPB PRN PRN Hypoglycemia Protocol Insulin Aspart 3 - 6 units 10/10/24 08:00 10/10/24 17:45 Insulin Aspart (*Bkc) 100 Units/Ml SUB-Q Not Given [facility] Protocol Insulin Aspart 1 - 3 units 10/09/24 22:35 10/10/24 20:35 Insulin Aspart (*Bkc) 100 Units/Ml SUB-Q 1 units HS SHAMEKA Administration Protocol Levothyroxine Sodium 75 mcg 10/10/24 06:30 10/11/24 05:51 Levothyroxine Sodium 75 Mcg Tablet PO 75 mcg DAILY@0630 [facility] Administration Lisinopril 20 mg 10/10/24 09:00 10/10/24 09:17 Lisinopril 20 Mg Tablet PO 20 mg DAILY [facility] Administration Multivitamins Therapeutic 1 tablet 10/10/24 09:00 10/10/24 09:16 Multivitamins Therapeutic Tab (*Bkc) PO 1 tablet DAILY [facility] Administration Oseltamivir Phosphate 30 mg 10/09/24 21:00 10/10/24 20:32 Oseltamivir Phosphate 30 Mg Capsule PO 10/14/24 20:59 30 mg Q12HR SHAMEKA Administration Oxybutynin Chloride 5 mg 10/10/24 09:00 10/10/24 09:18 Oxybutynin Chloride 5 Mg Tablet PO 5 mg DAILY [facility] Administration Potassium Chloride 10 meq 10/10/24 09:00 10/10/24 09:17 Potassium Chloride 10 Meq Er Tablet PO Not Given Q48H [facility] Senna 8.6 mg 10/09/24 22:34 Sennosides 8.6 Mg Tablet PO BID PRN constipation Tamsulosin HCl 0.4 mg 10/10/24 09:00 10/10/24 09:17 Tamsulosin Hcl 0.4 Mg Capsule PO 0.4 mg DAILY [facility] Administration Vitamin D 2,000 units 10/10/24 09:00 10/10/24 09:16 Cholecalciferol 1,000 Units Tablet PO 2,000 units DAILY SH[facility]KA Administration Radiology Results: ITS Impressions Chest X-Ray 10/09/24 16:52 IMPRESSION: Cardiomegaly with cardiac decompensation and pulmonary edema. Overlying pneumonitis is not excluded. Chest CT 10/09/24 17:34 IMPRESSION: 1. Dependent atelectatic changes in the lower lobes with possibility of a pneumonitis cannot be excluded. 2. Focal atelectasis versus pneumonia in the lingula. 3. Cholelithiasis 4. Soft tissue density in the left kidney ultrasound evaluation advised. 5. Small sliding hiatus hernia. Renal Ultrasound 10/10/24 08:33 Impression: 4.8 cm left lower pole renal mass, not definitively cystic. Pre and postcontrast CT or MR recommended to further evaluate. Labs Labs: Laboratory Results - last 24 hr 10/10/24 10/10/24 10/10/24 12:00 17:24 19:48 WBC RBC Hgb Hct MCV MCH MCHC RDW Plt Count MPV Sodium Potassium Chloride Carbon Dioxide Anion Gap BUN Creatinine Estim Creat Clear Calc Estimated GFR Glucose POC Capillary Glucose 166 H 165 H 222 H Calcium Total Bilirubin AST ALT Alkaline Phosphatase Total Protein Albumin 10/11/24 05:20 WBC 7.1 RBC 4.12 L Hgb 12.5 L Hct 40.0 L MCV 97.1 MCH 30.3 MCHC 31.3 L RDW 13.8 Plt Count 162 MPV 10.3 Sodium 142 Potassium 4.5 Chloride 108 H Carbon Dioxide 24 Anion Gap 10 BUN 44 H Creatinine 1.94 H Estim Creat Clear Calc 33 Estimated GFR 33 L Glucose 146 H POC Capillary Glucose Calcium 8.7 Total Bilirubin 0.6 AST 18 ALT 16 Alkaline Phosphatase 70 Total Protein 7.0 Albumin 4.0 Quality VTE Prophylaxis VTE prophylaxis: pharmacologic ordered
[2024-10-11 09:07] LABS: Glucose Point of Care 119 mg/dl (65-105)
[2024-10-11] MEDS: oxyBUTYnin CHLORIDE 5 MG TABLET PO (09:57)
[2024-10-11] MEDS: ENOXAPARIN 40 MG/0.4 ML SYRINGE SUB-Q (09:57)
[2024-10-11] MEDS: FUROSEMIDE 20 MG TABLET PO (09:57)
[2024-10-11] MEDS: DOXYCYCLINE HYCLATE 100 MG TABLET PO ×2 (09:57→20:01)
[2024-10-11] MEDS: OSELTAMIVIR PHOSPHATE 30 MG CAPSULE PO ×2 (09:57→20:01)
[2024-10-11] MEDS: lisinopriL 20 MG TABLET PO (09:57)
[2024-10-11] MEDS: FAMOTIDINE 20 MG TABLET PO (09:57)
[2024-10-11] MEDS: MULTIVITAMINS THERAPEUTIC TAB (*BKC) 1 TABLET PO (09:57)
[2024-10-11] MEDS: ASPIRIN 81 MG CHEWABLE TABLET PO (09:57)
[2024-10-11] MEDS: guaiFENesin 12 HR 600 MG TABCR 1200 MG PO ×2 (09:57→20:01)
[2024-10-11] MEDS: CHOLECALCIFEROL 1,000 UNITS TABLET 2000 UNITS PO (09:57)
[2024-10-11] MEDS: TAMSULOSIN HCL 0.4 MG CAPSULE PO (09:57)
[2024-10-11] MEDS: amLODIPine BESYLATE 10 MG TABLET PO (09:57)
[2024-10-11 12:02] LABS: Glucose Point of Care 129 mg/dl (65-105)
[2024-10-11 16:49] LABS: Glucose Point of Care 145 mg/dl (65-105)
--- NOTE | 2024-10-11 17:42 | PM.CNNEP ---
History of Present Illness Reason for Consult Consult date: 10/11/24 Reason for consult: chronic renal failure Chief Complaint Chief complaint: RSV, pneumonia, increased work of breathing [facility] Past Medical History Medical History (Updated 10/09/24 @ 22:29 by Rosa Del Rio PA-C) Hypothyroidism Embolism or thrombosis of aorta Vitamin D deficiency Overactive bladder Chronic kidney disease, stage 4 (severe) Benign prostatic hyperplasia Hyperlipidemia Hypertension Family History Family History Father Aneurysm Mother CHF (congestive heart failure) Social History Social History (Updated 10/09/24 @ 22:24 by Rosa Del Rio PA-C) Social History: Surrogate medical decision maker: Danay Christiansen, spouse. Code status: Full code. Smoking status: Never smoker Alcohol intake: former Substance use: never Substance use type: does not use Do You Feel Safe in your Home?: Yes Lack of Transportation: No Lack of Food: Never True Current Housing: I Have Housing Concerned About Future Housing: No Difficulty Paying Gas/Electric Bills: No Difficulty Paying for Meds: No Currently Unemployed: No Education: High School Diploma/GED Difficulty w/ Childcare or Family Care: No Living arrangements: usp Additional living arrangements comments: Lives at [facility] and rooms with his spouse. Spiritual care concerns: No Meds Home Medications and Allergies Home Medications ?Medication ?Instructions ?Recorded ?Confirmed ?Type acetaminophen 500 mg capsule 1,000 mg PO Q4H PRN pain 10/09/24 10/09/24 History amlodipine 10 mg tablet 10 mg PO DAILY 10/09/24 10/09/24 History aspirin 81 mg capsule 81 mg PO DAILY 10/09/24 10/09/24 History atorvastatin 10 mg tablet 10 mg PO HS 10/09/24 10/09/24 History benazepril 20 mg tablet 20 mg PO DAILY 10/09/24 10/09/24 History cholecalciferol (vitamin D3) 50 50 mcg PO DAILY 10/09/24 10/09/24 History mcg (2,000 unit) tablet (D3 DOTS) famotidine 20 mg tablet 20 mg PO DAILY 10/09/24 10/09/24 History furosemide 20 mg tablet 20 mg PO DAILY 10/09/24 10/09/24 History guaifenesin 100 mg/5 mL oral 100 mg PO Q4H PRN cough 10/09/24 10/09/24 History liquid (Tussin Chest Congestion) levothyroxine 75 mcg tablet 75 mcg PO DAILY 10/09/24 10/09/24 History multivitamin (Daily Multi-Vitamin 1 tablet PO DAILY 10/09/24 10/09/24 History tablet) ondansetron HCl 4 mg tablet 4 mg PO Q8H 10/09/24 10/09/24 History oxybutynin chloride 5 mg tablet 5 mg PO DAILY 10/09/24 10/09/24 History potassium chloride 10 mEq 10 meq PO .COMPLEX 10/09/24 10/09/24 History capsule,extended release sennosides 8.6 mg tablet (senna) 8.6 mg PO BID PRN constipation 10/09/24 10/09/24 History tamsulosin 0.4 mg capsule 0.4 mg PO DAILY 10/09/24 10/09/24 History Allergies Allergy/AdvReac Type Severity Reaction Status Date / Time Penicillins Allergy Unknown Rash Verified 10/09/24 16:49 Vital Signs Vital Signs Temp Pulse Resp BP Pulse Ox O2 Del Method FiO2 10/11/24 14:15 100 20 10/11/24 14:05 102 H 20 92 Room Air 10/11/24 14:03 102 H 24 H 10/11/24 14:00 97.4 F L 94 16 100/53 L 100 10/11/24 11:18 Room Air 10/11/24 11:09 Room Air 10/11/24 10:15 Room Air 10/11/24 09:01 86 20 10/11/24 08:46 83 20 10/11/24 08:46 95 Room Air 10/11/24 06:00 97.3 F L 90 16 116/59 L 93 10/10/24 21:20 97.1 F L 95 16 128/64 94 10/10/24 20:40 94 Room Air 21 10/10/24 20:02 95 20 Results Lab Results 10/11/24 05:20 10/11/24 05:20 Lab results: Most recent lab results Calcium 8.7 mg/dL (8.4-10.2) 10/11/24 05:20 Magnesium 1.7 mg/dL (1.6-2.3) 10/10/24 05:11
[2024-10-11] MEDS: levoFLOXacin 750 MG/D5W 150 ML 750 MG/150 ML BAG 100 MG IVPB (18:20)
[2024-10-11] MEDS: ATORVASTATIN 10 MG TABLET PO (20:01)
[2024-10-12] VITALS (12 sets, daily range): BP systolic 114–122; BP diastolic 55–74; PULSE 44–98; RESP 16–28; TEMP 36.1–36.7; O2SAT 92–94
[2024-10-12] MEDS: ALBUTEROL SULFATE NEB 2.5 MG/3 ML INH INHALATION ×4 (02:05→21:52)
[2024-10-12 05:48] LABS: Hematocrit 40.5 % (42.0-52.0); Hemoglobin 12.6 g/dL (14.0-18.0); Mean Corpuscular HGB Conc 31.1 g/dl (32-36); Mean Corpuscular Hemoglobin 30.1 pg (26-34); Mean Corpuscular Volume 96.7 fl (80-100); Mean Platelet Volume 10.2 fl (7.4-10.4); Platelet Count Result 172 k/mm3 (150-375); Red Blood Count 4.19 M/mm3 (4.6-6.20); Red Cell Distribution Width 13.6 % (11.5-14.5); White Blood Count 7.8 K/mm3 (4.5-10.0)
[2024-10-12 06:10] LABS: Alanine Aminotransferase 17 U/L (6-50); Albumin Level 3.9 g/dL (3.5-5.1); Alkaline Phosphatase 70 U/L (38-126); Anion Gap 8 mmol/L (4-12); Aspartate Amino Transferase 24 U/L (17-59); Bilirubin,Total 0.6 mg/dL (0.2-1.3); Blood Urea Nitrogen 47 mg/dL (9-20); Calcium 8.9 mg/dL (8.4-10.2); Carbon Dioxide 25 mmol/L (22-30); Chloride 107 mmol/L (98-107); Estimated CRCL calculation 34 ml/min; Estimated Glomerular Filt Rate 35; Glucose 108 mg/dL (65-110); Potassium 4.3 mmol/L (3.4-5.0); Sodium 140 mmol/L (137-145)
[2024-10-12] MEDS: LEVOTHYROXINE SODIUM 75 MCG TABLET PO (06:16)
[2024-10-12 06:27] LABS: Glucose Point of Care 97 mg/dl (65-105)
[2024-10-12 08:17] LABS: Glucose Point of Care 113 mg/dl (65-105)
[2024-10-12] MEDS: OSELTAMIVIR PHOSPHATE 30 MG CAPSULE PO ×2 (08:19→20:28)
[2024-10-12] MEDS: ENOXAPARIN 40 MG/0.4 ML SYRINGE SUB-Q (08:19)
[2024-10-12] MEDS: oxyBUTYnin CHLORIDE 5 MG TABLET PO (08:19)
[2024-10-12] MEDS: CHOLECALCIFEROL 1,000 UNITS TABLET 2000 UNITS PO (08:19)
[2024-10-12] MEDS: ASPIRIN 81 MG CHEWABLE TABLET PO (08:19)
[2024-10-12] MEDS: lisinopriL 20 MG TABLET PO (08:19)
[2024-10-12] MEDS: DOXYCYCLINE HYCLATE 100 MG TABLET PO ×2 (08:19→20:28)
[2024-10-12] MEDS: guaiFENesin 12 HR 600 MG TABCR 1200 MG PO ×2 (08:20→20:28)
[2024-10-12] MEDS: FUROSEMIDE 20 MG TABLET PO (08:20)
[2024-10-12] MEDS: FAMOTIDINE 20 MG TABLET PO (08:20)
[2024-10-12] MEDS: TAMSULOSIN HCL 0.4 MG CAPSULE PO (08:20)
[2024-10-12] MEDS: MULTIVITAMINS THERAPEUTIC TAB (*BKC) 1 TABLET PO (08:20)
[2024-10-12] MEDS: POTASSIUM CHLORIDE 10 MEQ ER TABLET PO (08:20)
[2024-10-12] MEDS: amLODIPine BESYLATE 10 MG TABLET PO (08:20)
--- NOTE | 2024-10-12 08:37 | PM.IMPN ---
Progress Note: A&P Assessment and Plan (1) RSV infection: Code(s): B33.8 - Other specified viral diseases Status: Acute Assessment and Plan: Viral panel: RSV Tamiflu 10/09-10/14 Scheduled bronchodilators Mucinex and Cornet ordered to help mobilize secretions. Otherwise supportive care. Chest XR: Cardiomegaly with cardiac decompensation and pulmonary edema. Overlying pneumonitis is not excluded. Chest CT: Dependent atelectatic changes in the lower lobes with possibility of a pneumonitis cannot be excluded. Focal atelectasis versus pneumonia in the lingula. Though he is afebrile with normal WBC count, we will continue with empiric antibiotics. Levaquin started 10/09 Sputum culture has been ordered. Legionella, pneumococcal, mycoplasma ordered. Procalcitonin WNL. MRSA nares positive. Doxycycline started 10/10. Remains on room air. Continues to have a dry cough and wheezing on exam. Continue breathing treatments. (2) Abnormal finding on diagnostic imaging of kidney: Code(s): R93.429 - Abnormal radiologic findings on diagnostic imaging of unspecified kidney Status: Acute Assessment and Plan: He reportedly has stage 4 kidney disease and estimated GFR today is [address]: Soft tissue density in the left kidney ultrasound evaluation advised. Renal ultrasound ordered to evaluate soft tissue density seen in the left kidney on CT. Renal US: 4.8 cm left lower pole renal mass, not definitively cystic. Pre and postcontrast CT or MR recommended to further evaluate. Unable to obtain an MRI abdomen as patient has aneurysm clips. Plan for outpatient follow up with PCP who can order MRI. (3) Chronic kidney disease, stage 4 (severe): Code(s): N18.4 - Chronic kidney disease, stage 4 (severe) Status: Acute Assessment and Plan: He reportedly has stage 4 kidney disease. 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 BUN/Cr 40/1.67 with GFR 40 on admission, BUN/Cr 47/1.85 on am labs Monitor I/O, urine output has returned to normal since receiving fluids Avoid nephrotoxic medications and renally dose medications Nephrology consulted (4) Hypertension: Code(s): I10 - Essential (primary) hypertension Status: Acute Assessment and Plan: Chronic - lasix 20 mg daily - benazepril 20 mg daily, getting lisinopril here - amlodipine 10 mg daily - blood pressures remain stable, continue to monitor (5) Benign prostatic hyperplasia: Code(s): N40.0 - Benign prostatic hyperplasia without lower urinary tract symptoms Status: Acute Assessment and Plan: Chronic, continue flomax. (6) Hypothyroidism: Code(s): E03.9 - Hypothyroidism, unspecified Status: Acute Assessment and Plan: Continue levothyroxine, TSH WNL. Time Spent With Patient Time with patient: 25 - 35 minutes Subjective Date/time seen: 10/12/24 08:37 Interval history: 78-year-old male with hypertension, hyperlipidemia, type 2 diabetes mellitus, chronic kidney disease stage 4, hypothyroidism, and benign prostatic hyperplasia who presented to the hospital via EMS from [facility] for evaluation of weakness. Pleasant lying comfortably in his bed. He continues to have a dry hacking cough and endorses shortness of breath but notes that these are both improved since admission. He has no other complaints denying chest pain, palpitations, nausea/vomiting, no abdominal pain. He continues to work with therapy who is recommending SNF placement. Patient is agreeable to placement and care coordination is following. Review of Systems Review of Systems: All systems reviewed & are unremarkable except as noted in HPI and below Exam Narrative: AF HR 70 RR 20 SPO2 92 BP 122/55 General: male in no acute respiratory distress who is nontoxic appearing, sitting up in chair HEENT: Normocephalic. Atraumatic. Extraocular movement intact. Sclera clear and anicteric. No facial asymmetry. Chest: Lungs are clear in the uppers and coarse to auscultation bilaterally in the bases, improve with coughing. Slight expiratory wheezing. Dry cough. CV: Heart was regular rate and rhythm. Abd: Abdomen was soft. Nontender. Nondistended. Positive bowel sounds. Ext: No clubbing, cyanosis, or edema. DP pulses bilaterally. Neuro: Patient is alert. Speech is clear. Objective Data Vital Signs Vital Signs: Vital Signs - 24 hr 10/11/24 08:46 10/11/24 08:46 10/11/24 09:01 Temperature Pulse Rate 83 86 Respiratory Rate 20 20 Blood Pressure Pulse Oximetry 95 Oxygen Delivery Room Air Fraction of Inspired Oxygen 10/11/24 10:15 10/11/24 11:09 10/11/24 11:18 Temperature Pulse Rate Respiratory Rate Blood Pressure Pulse Oximetry Oxygen Delivery Room Air Room Air Room Air Fraction of Inspired Oxygen 10/11/24 14:00 10/11/24 14:03 10/11/24 14:05 Temperature 97.4 F L Pulse Rate 94 102 H 102 H Respiratory Rate 16 24 H 20 Blood Pressure 100/53 L Pulse Oximetry 100 92 Oxygen Delivery Room Air Fraction of Inspired Oxygen 10/11/24 14:15 10/11/24 19:55 10/11/24 19:55 Temperature Pulse Rate 100 97 Respiratory Rate 20 20 Blood Pressure Pulse Oximetry 92 Oxygen Delivery Room Air Fraction of Inspired Oxygen 10/11/24 19:56 10/11/24 20:01 10/11/24 22:28 Temperature 97.0 F L Pulse Rate 100 98 97 Respiratory Rate 20 20 16 Blood Pressure 135/65 Pulse Oximetry 92 94 Oxygen Delivery Room Air Fraction of Inspired Oxygen 21 10/12/24 02:06 10/12/24 02:13 10/12/24 06:00 Temperature 97.0 F L Pulse Rate 63 74 91 Respiratory Rate 20 20 16 Blood Pressure 122/55 L Pulse Oximetry 94 Oxygen Delivery Fraction of Inspired Oxygen 10/12/24 07:52 10/12/24 07:52 10/12/24 08:02 Temperature Pulse Rate 63 70 Respiratory Rate 20 20 Blood Pressure Pulse Oximetry 92 Oxygen Delivery Room Air Fraction of Inspired Oxygen Intake/Output Intake/Output: Intake & Output 10/09/24 10/11/24 10/11/24 10/12/24 23:59 00:59 23:59 23:59 Intake Total 857 162 9468 400 Output Total 615 810 9045 1100 Balance -350 640 262 -700 Meds/Results Medications: Active Medications Generic Name Dose Route Start Last Admin Trade Name Freq PRN Reason Stop Dose Admin Acetaminophen 650 mg 10/09/24 22:31 Acetaminophen 325 Mg Tablet PO Q6H PRN Mild Pain (1-3) or Fever Albuterol 2.5 mg 10/09/24 20:00 10/12/24 07:51 Albuterol Sulfate Neb 2.5 Mg/3 Ml Inh INHALATION 2.5 mg Q6HRT SHAMEKA Administration Amlodipine Besylate 10 mg 10/10/24 09:00 10/12/24 08:20 Amlodipine Besylate 10 Mg Tablet PO 10 mg DAILY SHAMEKA Administration Aspirin 81 mg 10/10/24 09:00 10/12/24 08:19 Aspirin 81 Mg Chewable Tablet PO 81 mg DAILY SHAMEKA Administration Atorvastatin Calcium 10 mg 10/09/24 22:40 10/11/24 20:01 Atorvastatin 10 Mg Tablet PO 10 mg HS SHAMEKA Administration Dextrose 12.5 gm 10/09/24 22:31 Dextrose 50% 25 Gm/50 Ml Syringe IV PUSH PRN PRN Hypoglycemia Protocol Doxycycline Hyclate 100 mg 10/10/24 21:00 10/12/24 08:19 Doxycycline Hyclate 100 Mg Tablet PO 100 mg Q12HR SHAMEKA Administration Enoxaparin Sodium 40 mg 10/10/24 09:00 10/12/24 08:19 Enoxaparin 40 Mg/0.4 Ml Syringe SUB-Q 40 mg DAILY SHAMEKA Administration Famotidine 20 mg 10/10/24 09:00 10/12/24 08:20 Famotidine 20 Mg Tablet PO 20 mg DAILY SHAMEKA Administration Furosemide 20 mg 10/10/24 09:00 10/12/24 08:20 Furosemide 20 Mg Tablet PO 20 mg DAILY SHAMEKA Administration Glucagon 1 mg 10/09/24 22:31 Glucagon For Inj 1 Mg Vial IM PRN PRN Hypoglycemia Protocol Glucose 15 gm 10/09/24 22:31 Glucose Oral Gel 15 Gm Of Glucse In 37.5 Gm Tube PO PRN PRN Hypoglycemia Protocol Guaifenesin 1,200 mg 10/09/24 22:35 10/12/24 08:20 Guaifenesin 12 Hr 600 Mg Tabcr PO 1,200 mg Q12HR SHAMEKA Administration Guaifenesin 100 mg 10/09/24 22:34 10/11/24 03:56 Guaifenesin 200 Mg/10 Ml Udc PO 100 mg Q4H PRN Administration cough Levofloxacin/Dextrose 750 mg in 150 mls @ 100 mls/hr 10/11/24 18:00 10/11/24 18:20 Levaquin 750 Mg/D5w 150 Ml IVPB 100 mls/hr Q48H SHAMEKA Administration Dextrose 1,000 mls @ 100 mls/hr 10/09/24 22:31 Dextrose 5% 1,000 Ml IVPB PRN PRN Hypoglycemia Protocol Insulin Aspart 3 - 6 units 10/10/24 08:00 10/12/24 08:18 Insulin Aspart (*Bkc) 100 Units/Ml SUB-Q Not Given TIDWM SHAMEKA Protocol Insulin Aspart 1 - 3 units 10/09/24 22:35 10/11/24 22:48 Insulin Aspart (*Bkc) 100 Units/Ml SUB-Q Not Given HS [facility] Protocol Levothyroxine Sodium 75 mcg 10/10/24 06:30 10/12/24 06:16 Levothyroxine Sodium 75 Mcg Tablet PO 75 mcg DAILY@0630 SHAMEKA Administration Lisinopril 20 mg 10/10/24 09:00 10/12/24 08:19 Lisinopril 20 Mg Tablet PO 20 mg DAILY SHAMEKA Administration Multivitamins Therapeutic 1 tablet 10/10/24 09:00 10/12/24 08:20 Multivitamins Therapeutic Tab (*Bkc) PO 1 tablet DAILY SHAMEKA Administration Oseltamivir Phosphate 30 mg 10/09/24 21:00 10/12/24 08:19 Oseltamivir Phosphate 30 Mg Capsule PO 10/14/24 20:59 30 mg Q12HR SHAMEKA Administration Oxybutynin Chloride 5 mg 10/10/24 09:00 10/12/24 08:19 Oxybutynin Chloride 5 Mg Tablet PO 5 mg DAILY SHAMEKA Administration Potassium Chloride 10 meq 10/10/24 09:00 10/12/24 08:20 Potassium Chloride 10 Meq Er Tablet PO 10 meq Q48H SHAMEKA Administration Senna 8.6 mg 10/09/24 22:34 Sennosides 8.6 Mg Tablet PO BID PRN constipation Tamsulosin HCl 0.4 mg 10/10/24 09:00 10/12/24 08:20 Tamsulosin Hcl 0.4 Mg Capsule PO 0.4 mg DAILY SHAMEKA Administration Vitamin D 2,000 units 10/10/24 09:00 10/12/24 08:19 Cholecalciferol 1,000 Units Tablet PO 2,000 units DAILY SHAMEKA Administration Radiology Results: ITS Impressions Chest X-Ray 10/09/24 16:52 IMPRESSION: Cardiomegaly with cardiac decompensation and pulmonary edema. Overlying pneumonitis is not excluded. Chest CT 10/09/24 17:34 IMPRESSION: 1. Dependent atelectatic changes in the lower lobes with possibility of a pneumonitis cannot be excluded. 2. Focal atelectasis versus pneumonia in the lingula. 3. Cholelithiasis 4. Soft tissue density in the left kidney ultrasound evaluation advised. 5. Small sliding hiatus hernia. Renal Ultrasound 10/10/24 08:33 Impression: 4.8 cm left lower pole renal mass, not definitively cystic. Pre and postcontrast CT or MR recommended to further evaluate. Labs Labs: Laboratory Results - last 24 hr 10/11/24 10/11/24 10/11/24 09:01 11:59 16:16 WBC RBC Hgb Hct MCV MCH MCHC RDW Plt Count MPV Sodium Potassium Chloride Carbon Dioxide Anion Gap BUN Creatinine Estim Creat Clear Calc Estimated GFR Glucose POC Capillary Glucose 119 H 129 H 145 H Calcium Total Bilirubin AST ALT Alkaline Phosphatase Total Protein Albumin 10/11/24 10/12/24 10/12/24 21:40 05:19 08:15 WBC 7.8 RBC 4.19 L Hgb 12.6 L Hct 40.5 L MCV 96.7 MCH 30.1 MCHC 31.1 L RDW 13.6 Plt Count 172 MPV 10.2 Sodium 140 Potassium 4.3 Chloride 107 Carbon Dioxide 25 Anion Gap 8 BUN 47 H Creatinine 1.85 H Estim Creat Clear Calc 34 Estimated GFR 35 L Glucose 108 POC Capillary Glucose 97 113 H Calcium 8.9 Total Bilirubin 0.6 AST 24 ALT 17 Alkaline Phosphatase 70 Total Protein 7.0 Albumin 3.9 Quality VTE Prophylaxis VTE prophylaxis: pharmacologic ordered
--- NOTE | 2024-10-12 10:01 | PM.PNNEP ---
Subjective Date/time seen: 10/12/24 10:01 Objective Data Vital Signs Vital Signs: Vital Signs Temp Pulse Resp BP Pulse Ox O2 Del Method FiO2 10/12/24 08:20 Room Air 10/12/24 08:02 70 20 10/12/24 07:52 63 20 10/12/24 07:52 92 Room Air 10/12/24 06:00 97.0 F L 91 16 122/55 L 94 10/12/24 02:13 74 20 10/12/24 02:06 63 20 10/11/24 22:28 97.0 F L 97 16 135/65 94 10/11/24 20:01 98 20 10/11/24 19:56 100 20 92 Room Air 21 10/11/24 19:55 97 20 10/11/24 19:55 92 Room Air 10/11/24 14:15 100 20 10/11/24 14:05 102 H 20 92 Room Air 10/11/24 14:03 102 H 24 H 10/11/24 14:00 97.4 F L 94 16 100/53 L 100 Intake/Output Intake/Output: Intake & Output 10/09/24 10/11/24 10/11/24 10/12/24 23:59 00:59 23:59 23:59 Intake Total 397 218 9091 873 Output Total 309 782 6129 1100 Balance -350 640 262 -227 Meds/Results Medications: Active Medications Generic Name Dose Route Start Last Admin Trade Name Freq PRN Reason Stop Dose Admin Acetaminophen 650 mg 10/09/24 22:31 Acetaminophen 325 Mg Tablet PO Q6H PRN Mild Pain (1-3) or Fever Albuterol 2.5 mg 10/09/24 20:00 10/12/24 07:51 Albuterol Sulfate Neb 2.5 Mg/3 Ml Inh INHALATION 2.5 mg Q6HRT SHAMEKA Administration Amlodipine Besylate 10 mg 10/10/24 09:00 10/12/24 08:20 Amlodipine Besylate 10 Mg Tablet PO 10 mg DAILY SHAMEKA Administration Aspirin 81 mg 10/10/24 09:00 10/12/24 08:19 Aspirin 81 Mg Chewable Tablet PO 81 mg DAILY SHAMEKA Administration Atorvastatin Calcium 10 mg 10/09/24 22:40 10/11/24 20:01 Atorvastatin 10 Mg Tablet PO 10 mg HS SHAMEKA Administration Dextrose 12.5 gm 10/09/24 22:31 Dextrose 50% 25 Gm/50 Ml Syringe IV PUSH PRN PRN Hypoglycemia Protocol Doxycycline Hyclate 100 mg 10/10/24 21:00 10/12/24 08:19 Doxycycline Hyclate 100 Mg Tablet PO 100 mg Q12HR SHAMEKA Administration Enoxaparin Sodium 40 mg 10/10/24 09:00 10/12/24 08:19 Enoxaparin 40 Mg/0.4 Ml Syringe SUB-Q 40 mg DAILY SHAMEKA Administration Famotidine 20 mg 10/10/24 09:00 10/12/24 08:20 Famotidine 20 Mg Tablet PO 20 mg DAILY SHAMEKA Administration Furosemide 20 mg 10/10/24 09:00 10/12/24 08:20 Furosemide 20 Mg Tablet PO 20 mg DAILY SHAMEKA Administration Glucagon 1 mg 10/09/24 22:31 Glucagon For Inj 1 Mg Vial IM PRN PRN Hypoglycemia Protocol Glucose 15 gm 10/09/24 22:31 Glucose Oral Gel 15 Gm Of Glucse In 37.5 Gm Tube PO PRN PRN Hypoglycemia Protocol Guaifenesin 1,200 mg 10/09/24 22:35 10/12/24 08:20 Guaifenesin 12 Hr 600 Mg Tabcr PO 1,200 mg Q12HR SHAMEKA Administration Guaifenesin 100 mg 10/09/24 22:34 10/11/24 03:56 Guaifenesin 200 Mg/10 Ml Udc PO 100 mg Q4H PRN Administration cough Levofloxacin/Dextrose 750 mg in 150 mls @ 100 mls/hr 10/11/24 18:00 10/11/24 18:20 Levaquin 750 Mg/D5w 150 Ml IVPB 100 mls/hr Q48H SHAMEKA Administration Dextrose 1,000 mls @ 100 mls/hr 10/09/24 22:31 Dextrose 5% 1,000 Ml IVPB PRN PRN Hypoglycemia Protocol Insulin Aspart 3 - 6 units 10/10/24 08:00 10/12/24 08:18 Insulin Aspart (*Bkc) 100 Units/Ml SUB-Q Not Given TIDWM SHAMEKA Protocol Insulin Aspart 1 - 3 units 10/09/24 22:35 10/11/24 22:48 Insulin Aspart (*Bkc) 100 Units/Ml SUB-Q Not Given HS [facility] Protocol Levothyroxine Sodium 75 mcg 10/10/24 06:30 10/12/24 06:16 Levothyroxine Sodium 75 Mcg Tablet PO 75 mcg DAILY@0630 SHAMEKA Administration Lisinopril 20 mg 10/10/24 09:00 10/12/24 08:19 Lisinopril 20 Mg Tablet PO 20 mg DAILY SHAMEKA Administration Multivitamins Therapeutic 1 tablet 10/10/24 09:00 10/12/24 08:20 Multivitamins Therapeutic Tab (*Bkc) PO 1 tablet DAILY SHAMEKA Administration Oseltamivir Phosphate 30 mg 10/09/24 21:00 10/12/24 08:19 Oseltamivir Phosphate 30 Mg Capsule PO 10/14/24 20:59 30 mg Q12HR SHAMEKA Administration Oxybutynin Chloride 5 mg 10/10/24 09:00 10/12/24 08:19 Oxybutynin Chloride 5 Mg Tablet PO 5 mg DAILY SHAMEKA Administration Potassium Chloride 10 meq 10/10/24 09:00 10/12/24 08:20 Potassium Chloride 10 Meq Er Tablet PO 10 meq Q48H SHAMEKA Administration Senna 8.6 mg 10/09/24 22:34 Sennosides 8.6 Mg Tablet PO BID PRN constipation Tamsulosin HCl 0.4 mg 10/10/24 09:00 10/12/24 08:20 Tamsulosin Hcl 0.4 Mg Capsule PO 0.4 mg DAILY SHAMEKA Administration Vitamin D 2,000 units 10/10/24 09:00 10/12/24 08:19 Cholecalciferol 1,000 Units Tablet PO 2,000 units DAILY SHAMEKA Administration Radiology Results: ITS Impressions Chest X-Ray 10/09/24 16:52 IMPRESSION: Cardiomegaly with cardiac decompensation and pulmonary edema. Overlying pneumonitis is not excluded. Chest CT 10/09/24 17:34 IMPRESSION: 1. Dependent atelectatic changes in the lower lobes with possibility of a pneumonitis cannot be excluded. 2. Focal atelectasis versus pneumonia in the lingula. 3. Cholelithiasis 4. Soft tissue density in the left kidney ultrasound evaluation advised. 5. Small sliding hiatus hernia. Renal Ultrasound 10/10/24 08:33 Impression: 4.8 cm left lower pole renal mass, not definitively cystic. Pre and postcontrast CT or MR recommended to further evaluate. Labs Labs: Laboratory Tests 10/12/24 05:19 10/12/24 05:19 Calcium 8.9 Total Bilirubin 0.6 AST 24 ALT 17 Alkaline Phosphatase 70 Total Protein 7.0 Albumin 3.9
[2024-10-12 12:17] LABS: Glucose Point of Care 141 mg/dl (65-105)
[2024-10-12 16:46] LABS: Glucose Point of Care 127 mg/dl (65-105)
[2024-10-12] MEDS: ATORVASTATIN 10 MG TABLET PO (20:28)
[2024-10-12 21:09] LABS: Glucose Point of Care 180 mg/dl (65-105)
[2024-10-13] VITALS (12 sets, daily range): BP systolic 117–151; BP diastolic 82–92; PULSE 42–108; RESP 16–28; TEMP 36.6–36.8; O2SAT 90–97
[2024-10-13] MEDS: ALBUTEROL SULFATE NEB 2.5 MG/3 ML INH INHALATION ×4 (02:13→19:51)
[2024-10-13] MEDS: guaiFENesin 200 MG/10 ML UDC 100 MG PO (02:21)
[2024-10-13] MEDS: LEVOTHYROXINE SODIUM 75 MCG TABLET PO (05:10)
[2024-10-13 06:01] LABS: Hematocrit 39.4 % (42.0-52.0); Hemoglobin 12.7 g/dL (14.0-18.0); Mean Corpuscular HGB Conc 32.2 g/dl (32-36); Mean Corpuscular Hemoglobin 30.5 pg (26-34); Mean Corpuscular Volume 94.7 fl (80-100); Mean Platelet Volume 10.1 fl (7.4-10.4); Platelet Count Result 163 k/mm3 (150-375); Red Blood Count 4.16 M/mm3 (4.6-6.20); Red Cell Distribution Width 13.5 % (11.5-14.5); White Blood Count 8.1 K/mm3 (4.5-10.0)
[2024-10-13 06:13] LABS: Alanine Aminotransferase 18 U/L (6-50); Albumin Level 3.8 g/dL (3.5-5.1); Alkaline Phosphatase 68 U/L (38-126); Anion Gap 10 mmol/L (4-12); Aspartate Amino Transferase 23 U/L (17-59); Bilirubin,Total 0.6 mg/dL (0.2-1.3); Blood Urea Nitrogen 48 mg/dL (9-20); Carbon Dioxide 24 mmol/L (22-30); Chloride 106 mmol/L (98-107); Estimated CRCL calculation 35 ml/min; Estimated Glomerular Filt Rate 36; Glucose 121 mg/dL (65-110); Potassium 4.2 mmol/L (3.4-5.0); Sodium 140 mmol/L (137-145)
[2024-10-13 07:44] LABS: Glucose Point of Care 119 mg/dl (65-105)
[2024-10-13] MEDS: OSELTAMIVIR PHOSPHATE 30 MG CAPSULE PO ×2 (08:25→20:06)
[2024-10-13] MEDS: FAMOTIDINE 20 MG TABLET PO (08:26)
[2024-10-13] MEDS: TAMSULOSIN HCL 0.4 MG CAPSULE PO (08:26)
[2024-10-13] MEDS: FUROSEMIDE 20 MG TABLET PO (08:26)
[2024-10-13] MEDS: CHOLECALCIFEROL 1,000 UNITS TABLET 2000 UNITS PO (08:26)
[2024-10-13] MEDS: MULTIVITAMINS THERAPEUTIC TAB (*BKC) 1 TABLET PO (08:26)
[2024-10-13] MEDS: oxyBUTYnin CHLORIDE 5 MG TABLET PO (08:26)
[2024-10-13] MEDS: guaiFENesin 12 HR 600 MG TABCR 1200 MG PO ×2 (08:26→20:05)
[2024-10-13] MEDS: ASPIRIN 81 MG CHEWABLE TABLET PO (08:26)
[2024-10-13] MEDS: amLODIPine BESYLATE 10 MG TABLET PO (08:26)
[2024-10-13] MEDS: DOXYCYCLINE HYCLATE 100 MG TABLET PO ×2 (08:26→20:06)
[2024-10-13] MEDS: lisinopriL 20 MG TABLET PO (08:26)
[2024-10-13] MEDS: ENOXAPARIN 40 MG/0.4 ML SYRINGE SUB-Q (08:28)
--- NOTE | 2024-10-13 10:13 | PM.IMPN ---
Progress Note: A&P Assessment and Plan (1) RSV infection: Code(s): B33.8 - Other specified viral diseases Status: Acute Assessment and Plan: Viral panel: RSV Tamiflu 10/09-10/14 Scheduled bronchodilators Mucinex and Cornet ordered to help mobilize secretions. Otherwise supportive care. Chest XR: Cardiomegaly with cardiac decompensation and pulmonary edema. Overlying pneumonitis is not excluded. Chest CT: Dependent atelectatic changes in the lower lobes with possibility of a pneumonitis cannot be excluded. Focal atelectasis versus pneumonia in the lingula. Though he is afebrile with normal WBC count, we will continue with empiric antibiotics. Levaquin started 10/09 Sputum culture has been ordered. Legionella, pneumococcal, mycoplasma ordered. Procalcitonin WNL. MRSA nares positive. Doxycycline started 10/10. Remains on room air. Continues to have a dry cough and wheezing on exam. Continue breathing treatments. slowly improving (2) Abnormal finding on diagnostic imaging of kidney: Code(s): R93.429 - Abnormal radiologic findings on diagnostic imaging of unspecified kidney Status: Acute Assessment and Plan: He reportedly has stage 4 kidney disease and estimated GFR today is [address]: Soft tissue density in the left kidney ultrasound evaluation advised. Renal ultrasound ordered to evaluate soft tissue density seen in the left kidney on CT. Renal US: 4.8 cm left lower pole renal mass, not definitively cystic. Pre and postcontrast CT or MR recommended to further evaluate. Unable to obtain an MRI abdomen as patient has aneurysm clips. Plan for outpatient follow up with PCP who can order MRI. (3) Chronic kidney disease, stage 4 (severe): Code(s): N18.4 - Chronic kidney disease, stage 4 (severe) Status: Acute Assessment and Plan: He reportedly has stage 4 kidney disease. 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 BUN/Cr 40/1.67 with GFR 40 on admission, BUN/Cr 47/1.85 on am labs Monitor I/O, urine output has returned to normal since receiving fluids Avoid nephrotoxic medications and renally dose medications Nephrology consulted (4) Hypertension: Code(s): I10 - Essential (primary) hypertension Status: Acute Assessment and Plan: Chronic - lasix 20 mg daily - benazepril 20 mg daily, getting lisinopril here - amlodipine 10 mg daily - blood pressures remain stable, continue to monitor (5) Benign prostatic hyperplasia: Code(s): N40.0 - Benign prostatic hyperplasia without lower urinary tract symptoms Status: Acute Assessment and Plan: Chronic, continue flomax. (6) Hypothyroidism: Code(s): E03.9 - Hypothyroidism, unspecified Status: Acute Assessment and Plan: Continue levothyroxine, TSH WNL. Time Spent With Patient Time with patient: 25 - 35 minutes Subjective Date/time seen: 10/13/24 10:13 Interval history: 78-year-old male with hypertension, hyperlipidemia, type 2 diabetes mellitus, chronic kidney disease stage 4, hypothyroidism, and benign prostatic hyperplasia who presented to the hospital via EMS from [facility] for evaluation of weakness. Assuming care. He is up in the chair, voicing no complains. He continues to have a dry hacking cough and endorses shortness of breath but notes that these are both improved. He has no other complaints denying chest pain, palpitations, nausea/vomiting, no abdominal pain. He continues to work with therapy who is recommending SNF placement. Patient is agreeable to placement and care coordination is following. anticipate discharge in the next few days in stable. Review of Systems Review of Systems: 12 systems were reviewed and are negative except for as per HPI. All systems reviewed & are unremarkable except as noted in HPI and below Exam Narrative: AF HR 70 RR 20 SPO2 92 BP 122/55 General: male in no acute respiratory distress who is nontoxic appearing, sitting up in chair HEENT: Normocephalic. Atraumatic. Extraocular movement intact. Sclera clear and anicteric. No facial asymmetry. Chest: Lungs are clear in the uppers and coarse to auscultation bilaterally in the bases, improve with coughing. Slight expiratory wheezing. Dry cough. CV: Heart was regular rate and rhythm. Abd: Abdomen was soft. Nontender. Nondistended. Positive bowel sounds. Ext: No clubbing, cyanosis, or edema. DP pulses bilaterally. Neuro: Patient is alert. Speech is clear. Objective Data Vital Signs Vital Signs: Vital Signs - 24 hr 10/12/24 14:40 10/12/24 14:51 10/12/24 15:00 Temperature Pulse Rate 64 44 L 88 Respiratory Rate 20 20 Blood Pressure Pulse Oximetry Oxygen Delivery 10/12/24 15:08 10/12/24 19:24 10/12/24 21:52 Temperature 96.9 F L 98.0 F Pulse Rate 92 98 45 L Respiratory Rate 19 20 28 H Blood Pressure 114/69 119/74 Pulse Oximetry 94 94 94 Oxygen Delivery Room Air 10/12/24 21:52 10/12/24 22:05 10/13/24 02:13 Temperature Pulse Rate 45 L 57 L 45 L Respiratory Rate 28 H 20 28 H Blood Pressure Pulse Oximetry Oxygen Delivery 10/13/24 02:30 10/13/24 04:37 10/13/24 08:00 Temperature 97.8 F Pulse Rate 54 L 42 L Respiratory Rate 20 18 Blood Pressure 151/82 H Pulse Oximetry 92 Oxygen Delivery Room Air 10/13/24 08:11 10/13/24 08:11 10/13/24 08:18 Temperature Pulse Rate 66 59 L Respiratory Rate 16 18 Blood Pressure Pulse Oximetry 90 Oxygen Delivery Room Air Intake/Output Intake/Output: Intake & Output 10/11/24 10/11/24 10/12/24 10/13/24 00:59 23:59 23:59 23:59 Intake Total 790 1662 1835 100 Output Total 150 1250 2110 400 Balance 640 347 -110 -368 Meds/Results Medications: Active Medications Generic Name Dose Route Start Last Admin Trade Name Freq PRN Reason Stop Dose Admin Acetaminophen 650 mg 10/09/24 22:31 Acetaminophen 325 Mg Tablet PO Q6H PRN Mild Pain (1-3) or Fever Albuterol 2.5 mg 10/09/24 20:00 10/13/24 08:10 Albuterol Sulfate Neb 2.5 Mg/3 Ml Inh INHALATION 2.5 mg Q6HRT SHAMEKA Administration Amlodipine Besylate 10 mg 10/10/24 09:00 10/13/24 08:26 Amlodipine Besylate 10 Mg Tablet PO 10 mg DAILY SHAMEKA Administration Aspirin 81 mg 10/10/24 09:00 10/13/24 08:26 Aspirin 81 Mg Chewable Tablet PO 81 mg DAILY SHAMEKA Administration Atorvastatin Calcium 10 mg 10/09/24 22:40 10/12/24 20:28 Atorvastatin 10 Mg Tablet PO 10 mg HS SHAMEKA Administration Dextrose 12.5 gm 10/09/24 22:31 Dextrose 50% 25 Gm/50 Ml Syringe IV PUSH PRN PRN Hypoglycemia Protocol Doxycycline Hyclate 100 mg 10/10/24 21:00 10/13/24 08:26 Doxycycline Hyclate 100 Mg Tablet PO 100 mg Q12HR SHAMEKA Administration Enoxaparin Sodium 40 mg 10/10/24 09:00 10/13/24 08:28 Enoxaparin 40 Mg/0.4 Ml Syringe SUB-Q 40 mg DAILY SHAMEKA Administration Famotidine 20 mg 10/10/24 09:00 10/13/24 08:26 Famotidine 20 Mg Tablet PO 20 mg DAILY SHAMEKA Administration Furosemide 20 mg 10/10/24 09:00 10/13/24 08:26 Furosemide 20 Mg Tablet PO 20 mg DAILY SHAMEKA Administration Glucagon 1 mg 10/09/24 22:31 Glucagon For Inj 1 Mg Vial IM PRN PRN Hypoglycemia Protocol Glucose 15 gm 10/09/24 22:31 Glucose Oral Gel 15 Gm Of Glucse In 37.5 Gm Tube PO PRN PRN Hypoglycemia Protocol Guaifenesin 1,200 mg 10/09/24 22:35 10/13/24 08:26 Guaifenesin 12 Hr 600 Mg Tabcr PO 1,200 mg Q12HR SHAMEKA Administration Guaifenesin 100 mg 10/09/24 22:34 10/13/24 02:21 Guaifenesin 200 Mg/10 Ml Udc PO 100 mg Q4H PRN Administration cough Levofloxacin/Dextrose 750 mg in 150 mls @ 100 mls/hr 10/11/24 18:00 10/11/24 19:50 Levaquin 750 Mg/D5w 150 Ml IVPB Infused Q48H SHAMEKA Infusion Dextrose 1,000 mls @ 100 mls/hr 10/09/24 22:31 Dextrose 5% 1,000 Ml IVPB PRN PRN Hypoglycemia Protocol Insulin Aspart 3 - 6 units 10/10/24 08:00 10/13/24 08:23 Insulin Aspart (*Bkc) 100 Units/Ml SUB-Q Not Given [facility] Protocol Insulin Aspart 1 - 3 units 10/09/24 22:35 10/12/24 20:33 Insulin Aspart (*Bkc) 100 Units/Ml SUB-Q Not Given HS SHAMEKA Protocol Levothyroxine Sodium 75 mcg 10/10/24 06:30 10/13/24 05:10 Levothyroxine Sodium 75 Mcg Tablet PO 75 mcg DAILY@0630 SHAMEKA Administration Lisinopril 20 mg 10/10/24 09:00 10/13/24 08:26 Lisinopril 20 Mg Tablet PO 20 mg DAILY SHAMEKA Administration Multivitamins Therapeutic 1 tablet 10/10/24 09:00 10/13/24 08:26 Multivitamins Therapeutic Tab (*Bkc) PO 1 tablet DAILY SHAMEKA Administration Oseltamivir Phosphate 30 mg 10/09/24 21:00 10/13/24 08:25 Oseltamivir Phosphate 30 Mg Capsule PO 10/14/24 20:59 30 mg Q12HR SHAMEKA Administration Oxybutynin Chloride 5 mg 10/10/24 09:00 10/13/24 08:26 Oxybutynin Chloride 5 Mg Tablet PO 5 mg DAILY SHAMEKA Administration Potassium Chloride 10 meq 10/10/24 09:00 10/12/24 08:20 Potassium Chloride 10 Meq Er Tablet PO 10 meq Q48H SHAMEKA Administration Senna 8.6 mg 10/09/24 22:34 Sennosides 8.6 Mg Tablet PO BID PRN constipation Tamsulosin HCl 0.4 mg 10/10/24 09:00 10/13/24 08:26 Tamsulosin Hcl 0.4 Mg Capsule PO 0.4 mg DAILY SHAMEKA Administration Vitamin D 2,000 units 10/10/24 09:00 10/13/24 08:26 Cholecalciferol 1,000 Units Tablet PO 2,000 units DAILY SHAMEKA Administration Radiology Results: ITS Impressions Chest X-Ray 10/09/24 16:52 IMPRESSION: Cardiomegaly with cardiac decompensation and pulmonary edema. Overlying pneumonitis is not excluded. Chest CT 10/09/24 17:34 IMPRESSION: 1. Dependent atelectatic changes in the lower lobes with possibility of a pneumonitis cannot be excluded. 2. Focal atelectasis versus pneumonia in the lingula. 3. Cholelithiasis 4. Soft tissue density in the left kidney ultrasound evaluation advised. 5. Small sliding hiatus hernia. Renal Ultrasound 10/10/24 08:33 Impression: 4.8 cm left lower pole renal mass, not definitively cystic. Pre and postcontrast CT or MR recommended to further evaluate. Labs Labs: Laboratory Results - last 24 hr 10/12/24 10/12/24 10/12/24 11:37 16:44 19:22 WBC RBC Hgb Hct MCV MCH MCHC RDW Plt Count MPV Sodium Potassium Chloride Carbon Dioxide Anion Gap BUN Creatinine Estim Creat Clear Calc Estimated GFR Glucose POC Capillary Glucose 141 H 127 H 180 H Calcium Total Bilirubin AST ALT Alkaline Phosphatase Total Protein Albumin 10/13/24 10/13/24 05:35 07:38 WBC 8.1 RBC 4.16 L Hgb 12.7 L Hct 39.4 L MCV 94.7 MCH 30.5 MCHC 32.2 RDW 13.5 Plt Count 163 MPV 10.1 Sodium 140 Potassium 4.2 Chloride 106 Carbon Dioxide 24 Anion Gap 10 BUN 48 H Creatinine 1.84 H Estim Creat Clear Calc 35 Estimated GFR 36 L Glucose 121 H POC Capillary Glucose 119 H Calcium 9.0 Total Bilirubin 0.6 AST 23 ALT 18 Alkaline Phosphatase 68 Total Protein 7.0 Albumin 3.8 Quality VTE Prophylaxis VTE prophylaxis: pharmacologic ordered
[2024-10-13 11:47] LABS: Glucose Point of Care 164 mg/dl (65-105)
--- NOTE | 2024-10-13 13:17 | PM.PNNEP ---
Subjective Date/time seen: 10/13/24 13:17 Interval history: Follow-up for chronic kidney disease Objective Data Vital Signs Vital Signs: Vital Signs Temp Pulse Resp BP Pulse Ox O2 Del Method 10/13/24 14:29 76 24 H 10/13/24 14:23 68 24 H 10/13/24 14:00 108 H 22 H 117/86 97 10/13/24 08:18 59 L 18 10/13/24 08:11 66 16 10/13/24 08:11 90 Room Air 10/13/24 08:00 Room Air 10/13/24 04:37 97.8 F 42 L 18 151/82 H 92 10/13/24 02:30 54 L 20 10/13/24 02:13 45 L 28 H 10/12/24 22:05 57 L 20 10/12/24 21:52 45 L 28 H 10/12/24 21:52 45 L 28 H 94 Room Air 10/12/24 19:24 98.0 F 98 20 119/74 94 10/12/24 15:08 96.9 F L 92 19 114/69 94 Intake/Output Intake/Output: Intake & Output 10/11/24 10/11/24 10/12/24 10/13/24 00:59 23:59 23:59 23:59 Intake Total 790 1662 1835 580 Output Total 150 1250 2110 400 Balance 640 412 -275 180 Meds/Results Medications: Active Medications Generic Name Dose Route Start Last Admin Trade Name Freq PRN Reason Stop Dose Admin Acetaminophen 650 mg 10/09/24 22:31 Acetaminophen 325 Mg Tablet PO Q6H PRN Mild Pain (1-3) or Fever Albuterol 2.5 mg 10/09/24 20:00 10/13/24 14:23 Albuterol Sulfate Neb 2.5 Mg/3 Ml Inh INHALATION 2.5 mg Q6HRT SHAMEKA Administration Amlodipine Besylate 10 mg 10/10/24 09:00 10/13/24 08:26 Amlodipine Besylate 10 Mg Tablet PO 10 mg DAILY SHAMEKA Administration Aspirin 81 mg 10/10/24 09:00 10/13/24 08:26 Aspirin 81 Mg Chewable Tablet PO 81 mg DAILY SHAMEKA Administration Atorvastatin Calcium 10 mg 10/09/24 22:40 10/12/24 20:28 Atorvastatin 10 Mg Tablet PO 10 mg HS SHAMEKA Administration Dextrose 12.5 gm 10/09/24 22:31 Dextrose 50% 25 Gm/50 Ml Syringe IV PUSH PRN PRN Hypoglycemia Protocol Doxycycline Hyclate 100 mg 10/10/24 21:00 10/13/24 08:26 Doxycycline Hyclate 100 Mg Tablet PO 100 mg Q12HR SHAMEKA Administration Enoxaparin Sodium 40 mg 10/10/24 09:00 10/13/24 08:28 Enoxaparin 40 Mg/0.4 Ml Syringe SUB-Q 40 mg DAILY SHAMEKA Administration Famotidine 20 mg 10/10/24 09:00 10/13/24 08:26 Famotidine 20 Mg Tablet PO 20 mg DAILY SHAMEKA Administration Furosemide 20 mg 10/10/24 09:00 10/13/24 08:26 Furosemide 20 Mg Tablet PO 20 mg DAILY SHAMEKA Administration Glucagon 1 mg 10/09/24 22:31 Glucagon For Inj 1 Mg Vial IM PRN PRN Hypoglycemia Protocol Glucose 15 gm 10/09/24 22:31 Glucose Oral Gel 15 Gm Of Glucse In 37.5 Gm Tube PO PRN PRN Hypoglycemia Protocol Guaifenesin 1,200 mg 10/09/24 22:35 10/13/24 08:26 Guaifenesin 12 Hr 600 Mg Tabcr PO 1,200 mg Q12HR SHAMEKA Administration Guaifenesin 100 mg 10/09/24 22:34 10/13/24 02:21 Guaifenesin 200 Mg/10 Ml Udc PO 100 mg Q4H PRN Administration cough Levofloxacin/Dextrose 750 mg in 150 mls @ 100 mls/hr 10/11/24 18:00 10/11/24 19:50 Levaquin 750 Mg/D5w 150 Ml IVPB Infused Q48H SHAMEKA Infusion Dextrose 1,000 mls @ 100 mls/hr 10/09/24 22:31 Dextrose 5% 1,000 Ml IVPB PRN PRN Hypoglycemia Protocol Insulin Aspart 3 - 6 units 10/10/24 08:00 10/13/24 11:56 Insulin Aspart (*Bkc) 100 Units/Ml SUB-Q Not Given TIDWM SHAMEKA Protocol Insulin Aspart 1 - 3 units 10/09/24 22:35 10/12/24 20:33 Insulin Aspart (*Bkc) 100 Units/Ml SUB-Q Not Given HS SHAMEKA Protocol Levothyroxine Sodium 75 mcg 10/10/24 06:30 10/13/24 05:10 Levothyroxine Sodium 75 Mcg Tablet PO 75 mcg DAILY@0630 SHAMEKA Administration Lisinopril 20 mg 10/10/24 09:00 10/13/24 08:26 Lisinopril 20 Mg Tablet PO 20 mg DAILY SHAMEKA Administration Multivitamins Therapeutic 1 tablet 10/10/24 09:00 10/13/24 08:26 Multivitamins Therapeutic Tab (*Bkc) PO 1 tablet DAILY SHAMEKA Administration Oseltamivir Phosphate 30 mg 10/09/24 21:00 10/13/24 08:25 Oseltamivir Phosphate 30 Mg Capsule PO 10/14/24 20:59 30 mg Q12HR SHAMEKA Administration Oxybutynin Chloride 5 mg 10/10/24 09:00 10/13/24 08:26 Oxybutynin Chloride 5 Mg Tablet PO 5 mg DAILY SHAMEKA Administration Potassium Chloride 10 meq 10/10/24 09:00 10/12/24 08:20 Potassium Chloride 10 Meq Er Tablet PO 10 meq Q48H SHAMEKA Administration Senna 8.6 mg 10/09/24 22:34 Sennosides 8.6 Mg Tablet PO BID PRN constipation Tamsulosin HCl 0.4 mg 10/10/24 09:00 10/13/24 08:26 Tamsulosin Hcl 0.4 Mg Capsule PO 0.4 mg DAILY SHAMEKA Administration Vitamin D 2,000 units 10/10/24 09:00 10/13/24 08:26 Cholecalciferol 1,000 Units Tablet PO 2,000 units DAILY SHAMEKA Administration Radiology Results: ITS Impressions Chest X-Ray 10/09/24 16:52 IMPRESSION: Cardiomegaly with cardiac decompensation and pulmonary edema. Overlying pneumonitis is not excluded. Chest CT 10/09/24 17:34 IMPRESSION: 1. Dependent atelectatic changes in the lower lobes with possibility of a pneumonitis cannot be excluded. 2. Focal atelectasis versus pneumonia in the lingula. 3. Cholelithiasis 4. Soft tissue density in the left kidney ultrasound evaluation advised. 5. Small sliding hiatus hernia. Renal Ultrasound 10/10/24 08:33 Impression: 4.8 cm left lower pole renal mass, not definitively cystic. Pre and postcontrast CT or MR recommended to further evaluate. Labs Labs: Laboratory Tests 10/13/24 05:35 10/13/24 05:35 10/12/24 10/12/24 10/13/24 16:44 19:22 05:35 WBC 8.1 RBC 4.16 L Hgb 12.7 L Hct 39.4 L MCV 94.7 MCH 30.5 MCHC 32.2 RDW 13.5 Plt Count 163 MPV 10.1 Sodium 140 Potassium 4.2 Chloride 106 Carbon Dioxide 24 Anion Gap 10 BUN 48 H Creatinine 1.84 H Estim Creat Clear Calc 35 Estimated GFR 36 L Glucose 121 H POC Capillary Glucose 127 H 180 H Calcium 9.0 Total Bilirubin 0.6 AST 23 ALT 18 Alkaline Phosphatase 68 Total Protein 7.0 Albumin 3.8 10/13/24 10/13/24 07:38 11:44 WBC RBC Hgb Hct MCV MCH MCHC RDW Plt Count MPV Sodium Potassium Chloride Carbon Dioxide Anion Gap BUN Creatinine Estim Creat Clear Calc Estimated GFR Glucose POC Capillary Glucose 119 H 164 H Calcium Total Bilirubin AST ALT Alkaline Phosphatase Total Protein Albumin
[2024-10-13 16:37] LABS: Glucose Point of Care 130 mg/dl (65-105)
[2024-10-13] MEDS: levoFLOXacin 750 MG/D5W 150 ML 750 MG/150 ML BAG 100 MG IVPB (17:04)
[2024-10-13 19:02] LABS: Pneumococcal Antigen Urine NOT DETECTED
[2024-10-13] MEDS: ATORVASTATIN 10 MG TABLET PO (20:06)
[2024-10-13 20:59] LABS: Legionella pneumophila Ag Ur NOT DETECTED
[2024-10-13 21:09] LABS: Glucose Point of Care 153 mg/dl (65-105)
[2024-10-14 01:59] VITALS: PULSE 76; RESP 20
[2024-10-14] MEDS: ALBUTEROL SULFATE NEB 2.5 MG/3 ML INH INHALATION (01:59)
[2024-10-14 02:09] VITALS: PULSE 74; RESP 20
[2024-10-14 04:19] VITALS: BP 124/61; PULSE 53; RESP 20; TEMP 36.4; O2SAT 93
[2024-10-14] MEDS: LEVOTHYROXINE SODIUM 75 MCG TABLET PO (05:03)
[2024-10-14 05:39] LABS: Hematocrit 42.1 % (42.0-52.0); Hemoglobin 13.3 g/dL (14.0-18.0); Mean Corpuscular HGB Conc 31.6 g/dl (32-36); Mean Corpuscular Hemoglobin 30.4 pg (26-34); Mean Corpuscular Volume 96.1 fl (80-100); Mean Platelet Volume 10.3 fl (7.4-10.4); Platelet Count Result 183 k/mm3 (150-375); Red Blood Count 4.38 M/mm3 (4.6-6.20); Red Cell Distribution Width 13.6 % (11.5-14.5); White Blood Count 8.7 K/mm3 (4.5-10.0)
[2024-10-14 05:51] LABS: Alanine Aminotransferase 20 U/L (6-50); Alkaline Phosphatase 66 U/L (38-126); Anion Gap 10 mmol/L (4-12); Aspartate Amino Transferase 25 U/L (17-59); Blood Urea Nitrogen 51 mg/dL (9-20); Calcium 9.5 mg/dL (8.4-10.2); Carbon Dioxide 25 mmol/L (22-30); Chloride 106 mmol/L (98-107); Estimated CRCL calculation 36 ml/min; Estimated Glomerular Filt Rate 37; Glucose 119 mg/dL (65-110); Potassium 5.2 mmol/L (3.4-5.0); Sodium 141 mmol/L (137-145)
[2024-10-14 09:40] LABS: Glucose Point of Care 140 mg/dl (65-105)
[2024-10-14] MEDS: POTASSIUM CHLORIDE 10 MEQ ER TABLET PO (09:51)
[2024-10-14] MEDS: TAMSULOSIN HCL 0.4 MG CAPSULE PO (09:51)
[2024-10-14] MEDS: MULTIVITAMINS THERAPEUTIC TAB (*BKC) 1 TABLET PO (09:51)
[2024-10-14] MEDS: lisinopriL 20 MG TABLET PO (09:51)
[2024-10-14] MEDS: OSELTAMIVIR PHOSPHATE 30 MG CAPSULE PO (09:51)
[2024-10-14] MEDS: oxyBUTYnin CHLORIDE 5 MG TABLET PO (09:51)
[2024-10-14] MEDS: DOXYCYCLINE HYCLATE 100 MG TABLET PO (09:51)
[2024-10-14] MEDS: FUROSEMIDE 20 MG TABLET PO (09:51)
[2024-10-14] MEDS: ASPIRIN 81 MG CHEWABLE TABLET PO (09:51)
[2024-10-14] MEDS: guaiFENesin 12 HR 600 MG TABCR 1200 MG PO (09:52)
[2024-10-14] MEDS: amLODIPine BESYLATE 10 MG TABLET PO (09:52)
[2024-10-14] MEDS: FAMOTIDINE 20 MG TABLET PO (09:52)
[2024-10-14] MEDS: CHOLECALCIFEROL 1,000 UNITS TABLET 2000 UNITS PO (09:52)
--- NOTE | 2024-10-14 09:54 | PM.DS ---
DS: Admitting Diagnosis Discharge Date 10/14 Admitting Diagnosis weakness DS: Discharge Diagnosis Discharge Diagnosis (1) RSV infection: Code(s): B33.8 - Other specified viral diseases Status: Acute (2) Abnormal finding on diagnostic imaging of kidney: Code(s): R93.429 - Abnormal radiologic findings on diagnostic imaging of unspecified kidney Status: Acute (3) Chronic kidney disease, stage 4 (severe): Code(s): N18.4 - Chronic kidney disease, stage 4 (severe) Status: Acute (4) Hypertension: Code(s): I10 - Essential (primary) hypertension Status: Acute (5) Benign prostatic hyperplasia: Code(s): N40.0 - Benign prostatic hyperplasia without lower urinary tract symptoms Status: Acute (6) Hypothyroidism: Code(s): E03.9 - Hypothyroidism, unspecified Status: Acute DS: Summary Hospital Course Hospital Course: 78-year-old male with hypertension, hyperlipidemia, type 2 diabetes mellitus, chronic kidney disease stage 4, hypothyroidism, and benign prostatic hyperplasia who presented to the hospital via EMS from [facility] for evaluation of weakness. Several issues were addressed: #RSV Viral panel: RSV Tamiflu 10/09-10/14 Scheduled bronchodilators Mucinex and Cornet ordered to help mobilize secretions. Otherwise supportive care. Chest XR: Cardiomegaly with cardiac decompensation and pulmonary edema. Overlying pneumonitis is not excluded. Chest CT: Dependent atelectatic changes in the lower lobes with possibility of a pneumonitis cannot be excluded. Focal atelectasis versus pneumonia in the lingula. Though he is afebrile with normal WBC count, we will continue with empiric antibiotics. Levaquin started 10/09- will need two more doses (take on 10/15 and 10/17 to complete the course of antibiotics) doxy-started on 10/10- 3 more doses-to finish the course Sputum culture has been ordered. Legionella, pneumococcal, mycoplasma ordered. Procalcitonin WNL. MRSA nares positive. Doxycycline started 10/10. Remains on room air. 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 BUN/Cr 40/1.67 with GFR 40 on admission Monitor I/O, urine output has returned to normal since receiving fluids Avoid nephrotoxic medications and renally dose medications Nephrology consulted Chest CT: Soft tissue density in the left kidney ultrasound evaluation advised. Renal ultrasound ordered to evaluate soft tissue density seen in the left kidney on CT. Renal US: 4.8 cm left lower pole renal mass, not definitively cystic. Pre and postcontrast CT or MR recommended to further evaluate. Will need to f/u with nephrology or PCP as an outpt for further eval. Unable to obtain an MRI abdomen as patient has aneurysm clips. Plan for outpatient follow up with PCP who can order MRI. #htn lasix 20 mg daily - benazepril 20 mg daily, getting lisinopril here - amlodipine 10 mg daily - blood pressures remain stable- no changes in meds #Hypothyroidism Continue levothyroxine, TSH WNL. Status at Discharge Functional status at discharge: uses cane/walker Overall status at discharge: patient is progressing back to baseline Time Spent with Patient Time attestation: Total time spent providing and/or coordinating discharge services: Time spent: Greater than 30 minutes Exam Narrative: General: male in no acute respiratory distress who is nontoxic appearing, sitting up in chair HEENT: Normocephalic. Atraumatic. Extraocular movement intact. Sclera clear and anicteric. No facial asymmetry. Chest: Lungs are clear in the uppers and coarse to auscultation bilaterally in the bases, improve with coughing. no more wheezing CV: Heart was regular rate and rhythm. Abd: Abdomen was soft. Nontender. Nondistended. Positive bowel sounds. Ext: No clubbing, cyanosis, or edema. DP pulses bilaterally. Neuro: Patient is alert. Speech is clear. Const: General: comfortable DS: Data Data Completed and Pending Completed studies during hospitalization: chets ct, chest xray, renal ultrasound Labs on day of discharge: Labs from last 24 hours 10/14/24 10/14/24 10/13/24 09:37 05:07 19:39 WBC 8.7 RBC 4.38 L Hgb 13.3 L Hct 42.1 MCV 96.1 MCH 30.4 MCHC 31.6 L RDW 13.6 Plt Count 183 MPV 10.3 Sodium 141 Potassium 5.2 H Chloride 106 Carbon Dioxide 25 Anion Gap 10 BUN 51 H Creatinine 1.76 H Estim Creat Clear Calc 36 Estimated GFR 37 L Glucose 119 H POC Capillary Glucose 140 H 153 H Calcium 9.5 Total Bilirubin 1.0 AST 25 ALT 20 Alkaline Phosphatase 66 Total Protein 7.0 Albumin 4.0 Ur L.pneumophila Ag Urine Pneumococcal Ag 10/13/24 10/13/24 10/10/24 16:34 11:44 17:37 WBC RBC Hgb Hct MCV MCH MCHC RDW Plt Count MPV Sodium Potassium Chloride Carbon Dioxide Anion Gap BUN Creatinine Estim Creat Clear Calc Estimated GFR Glucose POC Capillary Glucose 130 H 164 H Calcium Total Bilirubin AST ALT Alkaline Phosphatase Total Protein Albumin Ur L.pneumophila Ag Not detected Urine Pneumococcal Ag Not detected Preliminary micro results at discharge 10/09/24 18:47 Blood Culture - Preliminary Blood 10/09/24 18:47 Blood Culture - Preliminary Blood Discharge Plan Discharge Attending physician on discharge: Bruce Rader Consulting providers: Spenser Jeter; Brennen Hatch Discharging Clinician: Stephanie Huerta Patient Disposition: SNF Activity: december shower Diet: heart healthy Patient Language: German Stand Alone Forms: General Discharge Information Follow-up/Referrals: PHYSICIAN,CLINICAL RESEARCH MANAGEMENT ASSOCIATE [Primary Care Provider] - 1 Week Discharge Medications: New doxycycline hyclate 100 mg Tablet 100 mg PO Q12HR Qty: 3 0RF Rx Instructions: 3 more doses to finish the course levofloxacin 750 mg tablet 750 mg PO DAILY 2 Days Qty: 2 0RF Rx Instructions: take on 10/15 and 10/17 to complete the course of antibiotics Continued amlodipine 10 mg tablet 10 mg PO DAILY atorvastatin 10 mg tablet 10 mg PO HS benazepril 20 mg tablet 20 mg PO DAILY famotidine 20 mg tablet 20 mg PO DAILY furosemide 20 mg tablet 20 mg PO DAILY levothyroxine 75 mcg tablet 75 mcg PO DAILY ondansetron HCl 4 mg tablet 4 mg PO Q8H oxybutynin chloride 5 mg tablet 5 mg PO DAILY potassium chloride 10 mEq capsule, extended release 10 meq PO .COMPLEX Rx Instructions: 10 mEq orally every other day; tamsulosin 0.4 mg capsule 0.4 mg PO DAILY cholecalciferol (vitamin D3) [D3 DOTS] 50 mcg (2,000 unit) tablet 50 mcg PO DAILY guaifenesin [Tussin Chest Congestion] 100 mg/5 mL liquid 100 mg PO Q4H PRN (Reason: cough) sennosides [senna] 8.6 mg tablet 8.6 mg PO BID PRN (Reason: constipation) multivitamin [Daily Multi-Vitamin] Tablet 1 tablet PO DAILY aspirin 81 mg capsule 81 mg PO DAILY acetaminophen 500 mg capsule 1,000 mg PO Q4H PRN (Reason: pain) Date of admission: 10/10/24 07:18 Primary Care Provider: PHYSICIAN,CLINICAL RESEARCH MANAGEMENT ASSOCIATE Admitting Provider: Jasper Peoples Attending physician on admission: April Begum Condition: Stable Quality VTE Prophylaxis VTE prophylaxis: pharmacologic ordered Hospitalist MIPS Heart Failure (Exclusion) Patient has history of Heart Transplant or Left Ventricular Assistive Device?: No IF YES, STOP HERE Heart Failure (Qualifier) Patient has current or prior documentation of LVEF less than or equal to 40%, or mod/servere depressed LVSF?: No IF NO, STOP HERE
[2024-10-14] MEDS: ENOXAPARIN 40 MG/0.4 ML SYRINGE SUB-Q (09:55)
[2024-10-14 12:32] LABS: Glucose Point of Care 134 mg/dl (65-105)
[2024-10-14 12:44] LABS: SARS-CoV-2 RNA PCR Negative (Negative)
[2024-10-14 16:28] LABS: Mycoplasma IgM Antibody Titer 77 U/mL
== END 2024-10-14 14:30 | DRG 194 ==
LOC: ANHED 18:10 → ANH3MEDSUR 19:05 → ANH3MED 21:02
PROVIDERS: Physician Assistant; Student in an Organized Health Care Education/Training Program; Admitting Provider Internal Medicine; Emergency Provider Emergency Medicine; Visit Provider Nurse Practitioner
DX: J12.1 Respiratory syncytial virus pneumonia (principal); N18.4 Chronic kidney disease, stage 4 (severe); I12.9 Hypertensive chronic kidney disease with stage 1 through stage 4 chronic kidney disease, or unspecified chronic kidney disease; E03.9 Hypothyroidism, unspecified; N40.0 Benign prostatic hyperplasia without lower urinary tract symptoms; E78.5 Hyperlipidemia, unspecified; N32.81 Overactive bladder; N28.89 Other specified disorders of kidney and ureter; Z22.322 Carrier or suspected carrier of Methicillin resistant Staphylococcus aureus
CPT/HCPCS: 36415; 71045; 71250; 76775; 80048; 80053; 81003; 82948; 83036; 83735; 84145; 84443; 85025; 85027; 86738; 87040; 87449; 87635; 87637; 87641; 87899; 93005; 94640; 94667; 94668; 96365; 97110; 97166; 97530; 97535; 99285; A9270; G0378; J1650; J1815; J1956; J7040

== ENCOUNTER 2024-10-18 13:35 | Inpatient (IN) | payer MEDICARE, SELFPAY ==
--- NOTE | ~2024-10-18 | XR_ITS ---
CHEST RADIOGRAPH CLINICAL HISTORY: low bp . COMPARISON: 10/09/2024 TECHNIQUE: Single portable view of the chest. FINDINGS The cardiomediastinal silhouette is unremarkable. Coarse interstitial lung markings within the bilateral bases, likely chronic, unchanged from prior. The remainder of the lungs are clear. IMPRESSION: No focal infiltrate or effusion. Reviewed, dictated and finalized at location A.
[2024-10-18 13:31] VITALS: BP 106/82; PULSE 81; RESP 23; TEMP 36.4; O2SAT 94
--- NOTE | 2024-10-18 13:41 | ECG_ITS ---
Test Date: 2024-10-18 13:49:35 Measurements Intervals [place] Rate: 80 P: 62 WV: 202 QRS: 32 QRSD: 141 T: 27 QT: 387 QTc: 448 Interpretive Statements SINUS RHYTHM WITH FREQUENT VENTRICULAR PREMATURE COMPLEXES RIGHT BUNDLE BRANCH BLOCK [120+ ms QRS DURATION, UPRIGHT V1, 40+ ms S IN I/aVL/V4/V5/V6] Compared to ECG 10/09/2024 16:06:47 Ventricular premature complex(es) now present Atrial fibrillation no longer present Electronically Signed On 10-19-2024 16:38:33 CDT by Franco Bocanegra M.D.
[2024-10-18 14:20] LABS: Basophils Absolute Auto 0.1 K/mm3 (0.0-0.1); Basophils Percent Auto 0.5 % (0.2-1.2); Eosinophils Absolute Auto 0.3 K/mm3 (0-0.3); Eosinophils Percent Auto 3.2 % (0-4.4); Hematocrit 45.2 % (42.0-52.0); Hemoglobin 14.4 g/dL (14.0-18.0); Immature Granulocyte Absolute 0.05 K/mm3 (0.00-0.031); Immature Granulocyte Percent A 0.5 % (0-0.5); Lymphocytes Percent Auto 12.9 % (18.3-44.2); Mean Corpuscular HGB Conc 31.9 g/dl (32-36); Mean Corpuscular Hemoglobin 30.7 pg (26-34); Mean Corpuscular Volume 96.4 fl (80-100); Mean Platelet Volume 10.3 fl (7.4-10.4); Monocytes Absolute Auto 0.9 K/mm3 (0.1-0.6); Monocytes Percent Auto 8.6 % (2.6-8.5); Neutrophils Absolute Auto 7.5 K/mm3 (1.3-6.7); Neutrophils Percent Auto 74.3 % (45.5-73.1); Platelet Count Result 176 k/mm3 (150-375); Red Blood Count 4.69 M/mm3 (4.6-6.20); Red Cell Distribution Width 13.7 % (11.5-14.5); White Blood Count 10.1 K/mm3 (4.5-10.0)
[2024-10-18] MEDS: LACTATED RINGERS 1,000 ML 999 ML IV CONT (14:23)
[2024-10-18 14:26] LABS: Alanine Aminotransferase 18 U/L (6-50); Albumin Level 4.1 g/dL (3.5-5.1); Alkaline Phosphatase 58 U/L (38-126); Anion Gap 12 mmol/L (4-12); Aspartate Amino Transferase 24 U/L (17-59); Bilirubin,Total 0.8 mg/dL (0.2-1.3); Blood Urea Nitrogen 62 mg/dL (9-20); Calcium 9.2 mg/dL (8.4-10.2); Carbon Dioxide 25 mmol/L (22-30); Chloride 106 mmol/L (98-107); Estimated CRCL calculation 25 ml/min; Estimated Glomerular Filt Rate 24; Glucose 108 mg/dL (65-110); Potassium 5.1 mmol/L (3.4-5.0); Sodium 143 mmol/L (137-145)
[2024-10-18 14:58] LABS: Influenza A QL RT-PCR Negative (Negative); Influenza B QL RT-PCR Negative (Negative); RSV RNA, RT-PCR Positive (Negative); SARS-CoV-2 RNA PCR Negative (Negative)
[2024-10-18 15:32] VITALS: BP 96/75; PULSE 88; RESP 56; O2SAT 98
--- NOTE | 2024-10-18 15:52 | ED_ITS ---
HPI - General Adult General Chief complaint: Recheck/Abnormal Lab/Rx Stated complaint: low bp Time Seen by Provider: 10/18/24 13:40 History of Present Illness HPI narrative: 78-year-old male presents emergency department for evaluation for decreased p.o. intake and hypotension. Patient was recently admitted for a pneumonia and RSV. Patient did complete his antibiotics. Patient states he has not been eating and drinking well at his care facility. Patient states this morning he was having some lightheaded and dizziness. Patient was found to have a blood pressure in the 90s. Patient denies any other pain or complaints at this time. Related Data Home Medications ?Medication ?Instructions ?Recorded ?Confirmed ?Last Taken ?Type acetaminophen 500 mg capsule 1,000 mg PO Q4H PRN pain 10/09/24 10/09/24 Unknown History amlodipine 10 mg tablet 10 mg PO DAILY 10/09/24 10/09/24 Unknown History aspirin 81 mg capsule 81 mg PO DAILY 10/09/24 10/09/24 Unknown History atorvastatin 10 mg tablet 10 mg PO HS 10/09/24 10/09/24 Unknown History benazepril 20 mg tablet 20 mg PO DAILY 10/09/24 10/09/24 Unknown History cholecalciferol (vitamin D3) 50 50 mcg PO DAILY 10/09/24 10/09/24 Unknown History mcg (2,000 unit) tablet (D3 DOTS) famotidine 20 mg tablet 20 mg PO DAILY 10/09/24 10/09/24 Unknown History furosemide 20 mg tablet 20 mg PO DAILY 10/09/24 10/09/24 Unknown History guaifenesin 100 mg/5 mL oral 100 mg PO Q4H PRN cough 10/09/24 10/09/24 Unknown History liquid (Tussin Chest Congestion) levothyroxine 75 mcg tablet 75 mcg PO DAILY 10/09/24 10/09/24 Unknown History multivitamin (Daily Multi-Vitamin 1 tablet PO DAILY 10/09/24 10/09/24 Unknown History tablet) ondansetron HCl 4 mg tablet 4 mg PO Q8H 10/09/24 10/09/24 Unknown History oxybutynin chloride 5 mg tablet 5 mg PO DAILY 10/09/24 10/09/24 Unknown History potassium chloride 10 mEq 10 meq PO .COMPLEX 10/09/24 10/09/24 Unknown History capsule,extended release sennosides 8.6 mg tablet (senna) 8.6 mg PO BID PRN constipation 10/09/24 10/09/24 Unknown History tamsulosin 0.4 mg capsule 0.4 mg PO DAILY 10/09/24 10/09/24 Unknown History Allergies Allergy/AdvReac Type Severity Reaction Status Date / Time Penicillins Allergy Unknown Rash Verified 10/09/24 16:49 Review of Systems 2 Review of Systems: All systems reviewed & are unremarkable except as noted in HPI and below PMFSH Past Medical History Medical History Hypothyroidism Embolism or thrombosis of aorta Vitamin D deficiency Overactive bladder Chronic kidney disease, stage 4 (severe) Benign prostatic hyperplasia Hyperlipidemia Hypertension Family History Family History Father Aneurysm Mother CHF (congestive heart failure) Social History Social History Social History: Surrogate medical decision maker: Danay Christiansen, spouse. Code status: Full code. Smoking status: Never smoker Alcohol intake: unknown Substance use: unknown Substance use type: does not use Do You Feel Safe in your Home?: Yes Lack of Transportation: No Lack of Food: Never True Current Housing: I Have Housing Concerned About Future Housing: No Difficulty Paying Gas/Electric Bills: No Difficulty Paying for Meds: No Currently Unemployed: No Education: High School Diploma/GED Difficulty w/ Childcare or Family Care: No Living arrangements: prison Additional living arrangements comments: Lives at [facility] and rooms with his spouse. Spiritual care concerns: No Exam 2 Narrative: APPEARANCE: Tired appearing HEAD: normocephalic, atraumatic. EYES: PERRLA/EOMI, conjunctivae clear. NOSE: Normal no drainage EARS:TMS clear with good light reflex. THROAT: Pharynx clear, no exudate. NECK: Supple. No adenopathy, no masses. RESPIRATORY: Airway patent, respirations nonlabored. Clear to auscultation bilaterally, no rales, rhonchi, wheezing. CARDIOVASCULAR: Regular rate and rhythm without murmurs rubs or gallops. ABDOMINAL: Soft, nontender, nondistended, normal bowel sounds MUSCULOSKELETAL: Moves all extremities. Strength/ROM intact, No edema, No calf tenderness. NEURO: Alert. Cranial nerves II through XII intact. Good gait. Good coordination SKIN: Warm, dry. Normal Color Course Vital Signs Vital signs: Vital Signs Temperature 97.6 F 10/18/24 13:31 Pulse Rate 81 10/18/24 13:31 Respiratory Rate 23 H 10/18/24 13:31 Blood Pressure 106/82 10/18/24 13:31 Pulse Oximetry 94 10/18/24 13:31 Oxygen Delivery Room Air 10/18/24 13:31 Temperature 96.6 F L 10/18/24 19:45 Pulse Rate 78 10/18/24 19:45 Respiratory Rate 18 10/18/24 19:45 Blood Pressure 103/65 10/18/24 19:45 Pulse Oximetry 95 10/18/24 19:45 Oxygen Delivery Room Air 10/18/24 20:00 Medical Decision Making MDM Narrative Medical decision making narrative: 78-year-old male present to the emergency department for evaluation for hypotension after her recent discharge for pneumonia and RSV. Patient is currently afebrile but does have a leukocytosis of 10.1 hemoglobin 14.4. Has a creatinine of 2.59 which is a acute kidney injury for him with his typical baseline creatinine of 1.8. Patient will be admitted for slow rehydration. Prior to going to the floor patient's blood pressure was 102/61. Patient denies any complaints. Case discussed with hospitalist patient was accepted for admission, med surge was requested. Differential Diagnosis Differential Diagnosis: COVID, RSV influenza, dehydration, DESMOND, pneumonia Vital Signs Vital Signs: Vital Signs Temperature 97.6 F 10/18/24 13:31 Pulse Rate 81 10/18/24 13:31 Respiratory Rate 23 H 10/18/24 13:31 Blood Pressure 106/82 10/18/24 13:31 Pulse Oximetry 94 10/18/24 13:31 Oxygen Delivery Room Air 10/18/24 13:31 Temperature 96.6 F L 10/18/24 19:45 Pulse Rate 78 10/18/24 19:45 Respiratory Rate 18 10/18/24 19:45 Blood Pressure 103/65 10/18/24 19:45 Pulse Oximetry 95 10/18/24 19:45 Oxygen Delivery Room Air 10/18/24 20:00 Lab Data Lab results reviewed: Yes I reviewed the patient's lab results. 10/18/24 14:09 10/18/24 14:09 Labs: Lab Results 10/18/24 10/18/24 Range/Units 14:09 15:58 WBC 10.1 H (4.5-10.0) K/mm3 RBC 4.69 (4.6-6.20) M/mm3 Hgb 14.4 (14.0-18.0) g/dL Hct 45.2 (42.0-52.0) % MCV 96.4 (80-100) fl MCH 30.7 (26-34) pg MCHC 31.9 L (32-36) g/dl RDW 13.7 (11.5-14.5) % Plt Count 176 (150-375) k/mm3 MPV 10.3 (7.4-10.4) fl Immature Gran % (Auto) 0.5 (0-0.5) % Neut % (Auto) 74.3 H (45.5-73.1) % Lymph % (Auto) 12.9 L (18.3-44.2) % Eddy % (Auto) 8.6 H (2.6-8.5) % Eos % (Auto) 3.2 (0-4.4) % Baso % (Auto) 0.5 (0.2-1.2) % Lymph # (Auto) 1.30 (0.9-3.2) K/mm3 Eddy # (Auto) 0.9 H (0.1-0.6) K/mm3 Eos # (Auto) 0.3 (0-0.3) K/mm3 Baso # (Auto) 0.1 (0.0-0.1) K/mm3 Abs Immat Gran (auto) 0.05 H (0.00-0.031) K/mm3 Absolute Neuts (auto) 7.5 H (1.3-6.7) K/mm3 Absolute Nucleated RBC 0.000 (0.0-0.012) K/mm3 Nucleated RBC % 0.0 (0.0-0.2) % Sodium 143 (137-145) mmol/L Potassium 5.1 H (3.4-5.0) mmol/L Chloride 106 (98-107) mmol/L Carbon Dioxide 25 (22-30) mmol/L Anion Gap 12 (4-12) mmol/L BUN 62 H D (9-20) mg/dL Creatinine 2.59 H (0.7-1.3) mg/dL Estim Creat Clear Calc 25 ml/min Estimated GFR 24 L (59 - ) Glucose 108 (65-110) mg/dL Calcium 9.2 (8.4-10.2) mg/dL Total Bilirubin 0.8 (0.2-1.3) mg/dL AST 24 (17-59) U/L ALT 18 (6-50) U/L Alkaline Phosphatase 58 (38-126) U/L Total Protein 7.0 (6.3-8.2) g/dL Albumin 4.1 (3.5-5.1) g/dL Urine Color Yellow (Yellow) Urine Appearance Clear (Clear) Urine pH 5.0 (5.0-9.0) Ur Specific [place] 1.013 (1.001-1.035) Urine Protein Negative (Negative) mg/dL Urine Glucose (UA) Negative (Negative) mg/dL Urine Ketones Negative (Negative) mg/dL Ur Blood (Man) Negative (Negative) Urine Nitrate Negative (Negative) Urine Bilirubin Negative (Negative) Urine Urobilinogen 0.2 (<2.0) mg/dL Leukocyte Esterase Rfl Negative (Negative) CHANDLER/UL Influenza A (RT-PCR) Negative (Negative) Influenza B (RT-PCR) Negative (Negative) RSV (RT-PCR) Positive A (Negative) SARS-CoV-2 RNA (RT-PCR) Negative (Negative) Imaging Data Radiologist's impression: Impressions Chest X-Ray 10/18/24 15:27 IMPRESSION: No focal infiltrate or effusion. Discharge Plan Discharge Clinical Impression: RSV infection, DESMOND (acute kidney injury) Hypotension Qualifiers: Hypotension type: hypotension due to hypovolemia Qualified Code(s): E86.1 - Hypovolemia Patient Disposition: Still a Patient Condition: Serious
--- NOTE | 2024-10-18 15:59 | PC.NURSE ---
Patient repositioned and pillow placed behind back for comfort.
[2024-10-18 16:04] VITALS: BP 102/61; PULSE 75; RESP 13; O2SAT 95
[2024-10-18 16:12] LABS: Add Urine Microscopic? NO; Appearance Urine Clear (Clear); Bilirubin Urine Negative (Negative); Blood Urine Negative (Negative); Color Urine Yellow (Yellow); Glucose Urine UA Negative (Negative); Ketones Urine Negative (Negative); Leukocyte Esterase Ur Negative LEU/UL (Negative); Nitrate Urine Negative (Negative); Protein Urine Negative (Negative); Specific Grav Ur 1.013 (1.001-1.035); Urobilinogen Urine 0.2 mg/dL (<2.0)
--- OUTSIDE RECORDS SUMMARY | 2024-10-18 16:44 | XMS_ITS | Encounter Summary ---
Author Organization [facility] Address [address] [place] [address] Phone Care Team Providers Care Direct Mail Marketer Name Role Phone Je Kerns MD Primary Care Provider [phone] Booker Sears MD Primary Care Provider [phone] Clemente Gutierrez MD Unavailable Adrian Carr MD Unavailable Shi Farmer Unavailable Unavailable Encounter Details Date Type Department Care Team (Late st Contact Info) Description 07/03/2022 Nursing Facility [facility] [address] [place] [address] Ryan Dinero, PAC [address] [place], [place] [id number] Social History Tobacco Use Types Packs/Day Years [...] Dinero, PAC - 07/03/2022 2:48 PM CST [facility] NURSING PROGRESS NOTE Saw Christiansen is a 76 y.o. male at [facility] for long-term care. Was hospitalized at [facility] from March 20 through March 22 for [...] I am seeing patient for routine monthly senior living visit He is lying comfortably in bed. [...] disease) stage 3, GFR 30-59 ml/min ([facility]) ??? DM (diabetes mellitus) (HCC) ??? HLD [...] PSEUDOMEMBRANOUS COLITIS; Surgeon: Dajuan Garcia DO; Location: [facility] GI [facility]; Service: Gastroenterology ??? ROTATOR [...] for surveillance. Generalized weakness and deconditioning Receiving senior living care Is currently able to transition himself [...] this patient. This note was dictated using [employer] fluency dictation system and there may be errors in geophysical computer. Despite proof reading the note, there may be mistakes and I apologize for those. By: Ryan Dinero, PAC, 07/03/2022 2:48 PM ELECTRONICS ASSEMBLER TRONICS ASSEMBLER documented in this encounter Plan of Treatment [...] documented as of this encounter Care Teams Direct Mail Marketer Relationship Specialty Start Date End Date Je Kerns MD [address] [address] PCP - General Family Medicine 09/10/17 04/07/23 Booker Sears MD [address] [place] [address] PCP - General Internal Medicine 04/08/23 09/14/24 Clemente Gutierrez MD [address] [address] Consulting Physician Urological Surgery 05/21/23 Adrian Carr MD [address] [place] [address] Consulting Physician Pulmonary Disease 05/12/23 Shi Farmer [facility] Chief Radiation Therapist 08/06/24 08/09/24 documented as of this encounter
--- OUTSIDE RECORDS SUMMARY | 2024-10-18 16:44 | XMS_ITS | Encounter Summary ---
Author Organization [facility] Address [address] [place] [address] Phone Care Team Providers Care Computer Technology Instructor Name Role Phone Je Kerns MD Primary Care Provider [phone] Booker Sears MD Primary Care Provider [phone] Clemente Gutierrez MD Unavailable Adrian Carr MD Unavailable Shi Farmer Unavailable Unavailable Reason for Visit * Reason Comments Medication Refill Encounter Details Date Type Department Care Team (Late st Contact Info) Description 08/27/2020 Refill [facility] [address] [phone] Je Kerns MD #[address] [address] Medication Refill Social History Tobacco Use Types [...] PM CST Prescription approved. Please call in R CONTROL COUNSELOR * Telephone Encounter - Lillian Goff RN [...] no refill protocol information for this order R CONTROL COUNSELOR documented in this encounter Plan of Treatment [...] documented as of this encounter Care Teams Computer Technology Instructor Relationship Specialty Start Date End Date Je Kerns MD #2 [facility] [address] [place] [address] PCP - General Family Medicine 09/10/17 04/07/23 Booker Sears MD [address] [place] [address] PCP - General Internal Medicine 04/08/23 09/14/24 Clemente Gutierrez MD #[address] [facility] [address] [place] [address] Consulting Physician Urological Surgery 05/21/23 Adrian Carr MD [address] [place] [phone] Consulting Physician Pulmonary Disease 05/12/23 Shi Farmer [facility] Wallpaper Cleaner 08/06/24 08/09/24 documented as of this encounter
--- OUTSIDE RECORDS SUMMARY | 2024-10-18 16:44 | XMS_ITS | Encounter Summary ---
Author Organization [facility] Address [address] [place] [address] Phone Care Team Providers Care Canoe Maker Name Role Phone Je Kerns MD Primary Care Provider [phone] Booker Sears MD Primary Care Provider [phone] Clemente Gutierrez MD Unavailable Adrian Carr MD Unavailable Shi Farmer Unavailable Unavailable Encounter Details Date Type Department Care Team (Late st Contact Info) Description 12/11/2022 Nursing Facility [facility] [address] [place] [address] Ryan Dinero, PAC [address] [place], [place] [id number] Social History Tobacco Use Types Packs/Day Years [...] Dinero, PAC - 12/11/2022 12:20 PM CDT [facility] PROGRESS NOTE Saw Christiansen is a 77 y.o. male at [facility] for long-term care. Was hospitalized at [facility] from March 20 through March 22 for generalized weakness and frequent falls, there was concern for UTI during hospitalization as urine culture grew outMRSA but this was felt to be asymptomatic bacteriuria. Was transferred to an outside care home facility but ultimately did not regain enough ambulation to be discharged back to home so was transferred to this nursing facility on 04/19/2022 for long-term care and also to be with his who is a current long-term resident here. Subjective: Interval History: Seeing patient for routine monthly custodial visit. He is lying comfortably in bed. [...] PSEUDOMEMBRANOUS COLITIS; Surgeon: Dajuan Garcia DO; Location: [facility]; Service: Gastroenterology ??? ROTATOR CUFF [...] OF UNSPECIFIED SITE, WITHOUT RUPTURE Principal Result Silk Crepe Machine Operator: LIDIA BEGUM ([id number]) Continuous Mining Machine Lode Miner: JOSE ALFREDO SANFORD (CJALAFF) Potato Picker Continuous Mining Machine Lode Miner: MABEL DUPLEX SCAN OF AORTA LTD FINDINGS: [...] BY LIDIA BEGUM M.D. 07/05/2022 5:53:31 AM CLOTHES SHAKER. Assessment/Plan: Acute mild Bilateral lower extremity edema [...] who was planning on surgical intervention at [facility] was hospital once cleared by Dr. Betancur. [...] Well controlled Generalized weakness and deconditioning Receiving custodial care Is currently able to transition himself from the bed to the wheelchair without assistance. Needs assistance with toileting. Chronic kidney disease stage 3 Avoid nephrotoxic agents Monitor labs periodically BPH Continue Flomax and oxybutynin Well controlled VTE Prophylaxis: Activity I discussed advanced care planning with this patient. This note was dictated using [employer] fluency dictation system and there may be errors in rn pacu. Despite proof reading the note, there may [...] documented as of this encounter Care Teams Canoe Maker Relationship Specialty Start Date End Date Je Kerns MD #[address] [address] PCP - General Family Medicine 09/10/17 04/07/23 Booker Sears MD [address] [facility] [place] [address] PCP - General Internal Medicine 04/08/23 09/14/24 Clemente Gutierrez MD [address] [address] Consulting Physician Urological Surgery 05/21/23 Adrian Carr MD [address] [place] [address] Consulting Physician Pulmonary Disease 05/12/23 Shi Farmer [facility] Fire Safety Manager 08/06/24 08/09/24 documented as of this encounter
--- OUTSIDE RECORDS SUMMARY | 2024-10-18 16:44 | XMS_ITS | Encounter Summary ---
Author Organization [facility] Address [address] [place] [address] Phone Care Team Providers Care Spiral Machine Operator Name Role Phone Je Kerns MD Primary Care Provider [phone] Booker Sears MD Primary Care Provider [phone] Clemente Gutierrez MD Unavailable Adrian Carr MD Unavailable Shi Farmer Unavailable Unavailable Encounter Details Date Type Department Care Team (Late st Contact Info) Description 12/18/2022 Nursing Facility [facility] [address] [place] [address] Ryan Dinero, PAC [address] [place], [place] [address] Social History Tobacco Use Types Packs/Day Years [...] Dinero, AN - 12/18/2022 2:32 PM CDT [facility] USP DISCHARGE SUMMARY Name: Saw Christiansen Age: 77 y.o. : 1945 Attending Physician: No att. providers found Admission Date/Time: (Not on file) Expected Discharge Date: Primary Care Physician: Je Kerns MD Discharging Provider: AN Bynum INSTRUCTIONS FOR PHYSICIANS ON FOLLOW UP AFTER DISCHARGE: Follow-up with PCP in 1-2 weeks Discharge Instructions: Discharge Condition: not changed Disposition: Care Home Diet: Cardiac Diet Activity: activity as tolerated Discharge Diagnoses: Generalized weakness and deconditioning, hypertension, hyperlipidemia, chronickidney disease stage 3, BPH, diabetes mellitus type 2, abdominal aortic aneurysm Admitting Diagnoses: Generalized weakness and deconditioning, hypertension, hyperlipidemia, chronickidney disease stage 3, BPH, diabetes mellitus type 2 SKILLED CARE COURSE: Saw Christiansen was admitted to halfway facility for acute care rehabilitation. Prior to coming to this facility he was hospitalized at [facility] from March 20 through March 22 for generalized weakness and frequent falls, there was concern for UTI during hospitalization as urine culture grew out MRSA but this was felt to be asymptomatic bacteriuria. Was transferred to an outside halfway facility but ultimately did not regain enough ambulation to be discharged back to home so was transferred to this nursing facility on 04/19/2022 for long-term care and also to be with his who is a current long-term resident here. While at the rehabilitation facility, the patient received fci care. His stay the facility was overall [...] OF UNSPECIFIED SITE, WITHOUT RUPTURE Principal Result Tong Carrier: LIDIA BEGUM ([id number]) Linux Programmer: JOSE ALFREDO SANFORD (CJALAFF) Lumber Checker Linux Programmer: MABEL DUPLEX SCAN OF AORTA LTD FINDINGS: [...] BY LIDIA BEGUM M.D. 07/05/2022 5:53:31 AM DIETARY MANAGER. DISCHARGE PLAN: Patient will be transferring to [facility] in [facility]. Tentative discharge date is 12/27/2022. Will be moving there for long-term care and his will be going there with him. Understands to continue all current medications as directed and follow up with PCP/house in 1-2 weeks. Follow-up with vascular surgery Dr. García without fail. I have spent time coordinating care for this halfway facility discharge: Greater than 30 minutes spent in coordinating care This note was dictated using [employer] fluency dictation system and there may be errors in sewer and drain technician. Despite proof reading the note, there may [...] documented as of this encounter Care Teams Spiral Machine Operator Relationship Specialty Start Date End Date Je Kerns MD [address] [facility] [address] [place] [address] PCP - General Family Medicine 09/10/17 04/07/23 Booker Sears MD [address] [place] [address] PCP - General Internal Medicine 04/08/23 09/14/24 Clemente Gutierrez MD [address] [facility] [address] [place] [phone] Consulting Physician Urological Surgery 05/21/23 Adrian Carr MD #[address] [facility] [place] [phone] Consulting Physician Pulmonary Disease 05/12/23 Shi Farmer [facility] Business Center Attendant 08/06/24 08/09/24 documented as of this encounter
--- OUTSIDE RECORDS SUMMARY | 2024-10-18 16:44 | XMS_ITS | Clinical Summary ---
Author Organization [facility] Address [address] [address] Phone Care Team Providers Care Marketing Instructor Name Role Phone Clemente Gutierrez MD Unavailable [...] disease) 05/19/2023 06/18/2023 Non morbid obesity 05/12/2023 RATURO (obstructive sleep apnea) 05/12/2023 Stage 3a chronic [...] Team Description 08/06/2024 Patient Outreach [facility] Behavioral Geneticist Management [address] [place] [id number] Shi Farmer Care Management ([facility] health map) [...] Comments Blood Pressure 124/72 09/02/2023 11:32 AM HAND I TUBE BENDER Pulse 91 09/02/2023 11:32 AM HAND I TUBE BENDER Temperature 36.1 C (96.9 F) 09/02/2023 11:32 AM HAND I TUBE BENDER Respiratory Rate 16 09/02/2023 11:32 AM HAND I TUBE BENDER Oxygen Saturation 96% 09/02/2023 11:32 AM HAND I TUBE BENDER Inhaled Oxygen Concentration - - Weight 113.9 kg (251 lb) 09/02/2023 11:32 AM HAND I TUBE BENDER Height 170.2 cm (5' 7 ) 09/02/2023 11:32 AM HAND I TUBE BENDER Body Mass Index 39.31 09/02/2023 11:32 AM HAND I TUBE BENDER Plan of Treatment Health Maintenance Due Date [...] 6.0 % 03/02/2023 11:50 PM CDT [facility] Est Average Glucose 119.8 mg/dL 03/02/2023 11:50 PM CDT [facility] Blood Venipuncture / Unknown 03/02/2023 8:25 PM CDT 03/02/2023 8:28 PM CDT Narrative [facility] - 03/02/2023 11:50 PM CDT HEMOGLOBIN A1C: DIABETIC PATIENTS: WELL-CONTROLLED: 6.2 - 7.0 INTERMEDIATE WELL-CONTROLLED: 7.0 - 9.0 POORLY-CONTROLLED: >9.0 us Danay Rivera PERSONNEL SPECIALIST, DRIVE THRU ORDER TAKER CHEMISTRY ORDERABLES Final Result [facility] [address] [place] [address] * HM COLONOSCOPY (07/22/2012) us Jerrell Hurtado DO PROCEDURE/MINOR SURGICAL ORDERAB LES Final Result from Last 3 Months or Most Recently Relevant to Health Maintenance Additional Health Concerns Infection Onset 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 Care Teams Marketing Instructor Relationship Specialty Start Date End Date Clemente Gutierrez MD #[address] [address] Consulting Physician Urological Surgery 05/21/23 Adrian Carr MD [address] [place] [phone] Consulting Physician Pulmonary Disease 05/12/23
--- OUTSIDE RECORDS SUMMARY | 2024-10-18 16:44 | XMS_ITS | Encounter Summary ---
Author Organization [facility] Address [address] [place] [address] Phone Care Team Providers Care Direct Mail Marketer Name Role Phone Je Kerns MD Primary Care Provider [phone] Booker Sears MD Primary Care Provider [phone] Clemente Gutierrez MD Unavailable Adrian Carr MD Unavailable Shi Farmer Unavailable Unavailable Encounter Details Date Type Department Care Team (Late st Contact Info) Description 07/24/2022 Nursing Facility [facility] [address] [place] [address] Ryan iDnero, PAC [address] [place], [place] [address] Social History Tobacco Use Types Packs/Day Years [...] Dinero, PAC - 07/24/2022 12:59 PM CST [facility] Saw Christiansen is a 76 y.o. male at [facility] for long-term care. Was hospitalized at [facility] from March 20 through March 22 for generalized weakness and frequent falls, there was concern for UTI during hospitalization as urine culture grew outMRSA but this was felt to be asymptomatic bacteriuria. Was transferred to an outside long-term facility but ultimately did not regain enough [...] Diagnosis Date ??? AAA (abdominal aortic aneurysm) ([facility]) ??? Adenomatous colon polyp ??? C. difficile colitis ??? Central obesity ??? CKD (chronic kidney disease) stage 3, GFR 30-59 ml/min ([facility]) ??? DM (diabetes mellitus) ([facility]) ??? HLD (hyperlipidemia) ??? HTN (hypertension) ??? [...] PSEUDOMEMBRANOUS COLITIS; Surgeon: Dajuan Garcia DO; Location: [facility]; Service: Gastroenterology ??? ROTATOR CUFF [...] OF UNSPECIFIED SITE, WITHOUT RUPTURE Principal Result Blower Feeder Dyed Raw Stock: LIDIA BEGUM ([id number]) Material Checker: JOSE ALFREDO SANFORD (CJALAFF) Headrig Sawyer Material Checker: MABEL DUPLEX SCAN OF AORTA LTD FINDINGS: [...] BY LIDIA BEGUM M.D. 07/05/2022 5:53:31 AM CUSTOMER ENGINEERING SPECIALIST. Assessment/Plan: Viral upper respiratory syndrome 07/24 - [...] or greater Generalized weakness and deconditioning Receiving [facility] care Is currently able to transition himself [...] this patient. This note was dictated using [employer] fluency dictation system and there may be errors in warp dyeing tender. Despite proof reading the note, there may be mistakes and I apologize for those. By: AN Bynum, 07/24/2022 1:09 PM CUSTOMER ENGINEERING SPECIALIST OMER ENGINEERING SPECIALIST documented in this encounter Plan of [...] Date End Date Je Kerns MD #2 [facility] [address] [place] [address] PCP - General Family Medicine 09/10/17 04/07/23 Booker Sears MD [address] [place] [address] PCP - General Internal Medicine 04/08/23 09/14/24 Clemente Gutierrez MD #2 [facility] [address] [place] [address] Consulting Physician Urological Surgery 05/21/23 Adrian Carr MD #2 [place] [id number] Consulting Physician Pulmonary Disease 05/12/23 Shi Farmer Health Tea Tree Farmer 08/06/24 08/09/24 documented as of this encounter
--- OUTSIDE RECORDS SUMMARY | 2024-10-18 16:44 | XMS_ITS | Encounter Summary ---
Author Organization [facility] Address [address] [place] [address] Phone Care Team Providers Care Lyric Writer Name Role Phone Je Kerns MD Primary Care Provider [phone] Booker Sears MD Primary Care Provider [phone] Clemente Gutierrez MD Unavailable Adrian Carr MD Unavailable Shi Farmer Unavailable Unavailable Reason for Visit * Reason Comments Medication Refill Encounter Details Date Type Department Care Team (Late st Contact Info) Description 06/01/2020 Refill [facility] [address] [id number] Je Kerns MD #[address] [address] Medication Refill Social History Tobacco Use Types [...] hospitalist, Dr Ceron. Last OV 05/31/20 Lillian ALEJANDRAsystems planner failed the protocol, provider to review and [...] documented as of this encounter Care Teams Lyric Writer Relationship Specialty Start Date End Date Je Kerns MD #2 [facility] [address] [place] [address] PCP - General Family Medicine 09/10/17 04/07/23 Booker Sears MD [address] [place] [address] PCP - General Internal Medicine 04/08/23 09/14/24 Clemente Gutierrez MD #2 [facility] [address] [place] [address] Consulting Physician Urological Surgery 05/21/23 Adrian Carr MD #2 [place] [address] Consulting Physician Pulmonary Disease 05/12/23 Shi Farmer Health Perforator Loader 08/06/24 08/09/24 documented as of this encounter
--- OUTSIDE RECORDS SUMMARY | 2024-10-18 16:44 | XMS_ITS | Encounter Summary ---
Author Organization [facility] Address [address] [place] [address] Phone Care Team Providers Care Head Banquet Waitress Name Role Phone Je Kerns MD Primary Care Provider [phone] Booker Sears MD Primary Care Provider [phone] Clemente Gutierrez MD Unavailable Adrian Carr MD Unavailable Shi Farmer Unavailable Unavailable Encounter Details Date Type Department Care Team (Late st Contact Info) Description 11/20/2022 Nursing Facility [facility] [address] [place] [address] Ryan Dinero, PAC [address] [place], [place] [address] Social History Tobacco Use Types Packs/Day Years [...] Dinero, PAC - 11/20/2022 3:15 PM CDT [facility] PROGRESS NOTE Saw Christiansen is a 77 y.o. male at [facility] for long-term care. Was hospitalized at [facility] from March 20 through March 22 for [...] PSEUDOMEMBRANOUS COLITIS; Surgeon: Dajuan Garcia DO; Location: [facility] GI [facility]; Service: Gastroenterology ??? [...] OF UNSPECIFIED SITE, WITHOUT RUPTURE Principal Result Orientation & Mobility Specialist: LIDIA BEGUM ([id number]) Meat Boner: JOSE ALFREDO SANFORD (CJALAFF) Anesthesiology Physician Assistant Meat Boner: MABEL DUPLEX SCAN OF AORTA LTD FINDINGS: [...] BY LIDIA BEGUM M.D. 07/05/2022 5:53:31 AM HARD TILE SETTER APPRENTICE. Assessment/Plan: Acute mild Bilateral lower extremity edema [...] repeat imaging. Generalized weakness and deconditioning Receiving snf care Is currently able to transition himself from the bed to the wheelchair without assistance. Needs assistance with toileting. Chronic kidney disease stage 3 Avoid nephrotoxic agents Monitor labs periodically BPH Continue Flomax and oxybutynin Well controlled VTE Prophylaxis: Activity I discussed advanced care planning with this patient. This note was dictated using [employer] fluency dictation system and there may be errors in student development dean. Despite proof reading the note, there may [...] documented as of this encounter Care Teams Head Banquet Waitress Relationship Specialty Start Date End Date Je Kerns MD #[address] [address] PCP - General Family Medicine 09/10/17 04/07/23 Booker Sears MD [address] [place] [address] PCP - General Internal Medicine 04/08/23 09/14/24 Clemente Gutierrez MD #[address] [facility] [address] [address] Consulting Physician Urological Surgery 05/21/23 Adrian Carr MD #2 [facility] [place] [address] Consulting Physician Pulmonary Disease 05/12/23 Shi Farmer Health Real Estate Associate 08/06/24 08/09/24 documented as of this encounter
--- OUTSIDE RECORDS SUMMARY | 2024-10-18 16:44 | XMS_ITS | Encounter Summary ---
Author Organization [facility] Address [address] [place] [address] Phone Care Team Providers Care Rn Hedis Name Role Phone Je Kerns MD Primary Care Provider [phone] Booker Sears MD Primary Care Provider [phone] Clemente Gutierrez MD Unavailable Adrian Carr MD Unavailable Shi Farmer Unavailable Unavailable Encounter Details Date Type Department Care Team (Late st Contact Info) Description 06/05/[address] [facility] [address] [place] [address] Ryan Dinero, PAC [address] [place], [place] [id number] Social History Tobacco Use Types Packs/Day Years [...] Dinero, PAC - 06/05/2022 1:07 PM CDT [facility] PROGRESS NOTE Saw Christiansen is a 76 y.o. male at [facility] for long-term care. Was hospitalized at [facility] from March 20 through March 22 for generalized weakness and frequent falls, there was concern for UTI during hospitalization as urine culture grew outMRSA but this was felt to be asymptomatic bacteriuria. Was transferred to an outside intermediate facility but ultimately did not regain enough ambulation to be discharged back to home so was transferred to this nursing facility on 04/19/2022 for long-term care and also to be with his who is a current long-term resident here. Subjective: Interval History: I am seeing patient for routine monthly jail visit He is lying comfortably in bed. Denies any acute symptoms or concerns. Says he feels ???fine?? . Past Medical History Positives Diagnosis Date ??? AAA (abdominal aortic aneurysm) ([facility]) ??? Adenomatous colon polyp ??? C. difficile colitis ??? Central obesity ??? CKD (chronic kidney disease) stage 3, GFR 30-59 ml/min ([facility]) ??? DM (diabetes mellitus) ([facility]) ??? HLD (hyperlipidemia) ??? HTN (hypertension) ??? [...] PSEUDOMEMBRANOUS COLITIS; Surgeon: Dajuan Garcia DO; Location: [facility]; Service: Gastroenterology ??? ROTATOR CUFF [...] Betancur (cardiology). Generalized weakness and deconditioning Receiving jail care Is currently able to transition himself [...] this patient. This note was dictated using [employer] fluency dictation system and there may be errors in hearing aid mechanic. Despite proof reading the note, there may [...] documented as of this encounter Care Teams Rn Hedis Relationship Specialty Start Date End Date Je Kerns MD #[address] [facility] [address] [place] [address] PCP - General Family Medicine 09/10/17 04/07/23 Booker Sears MD [address] [place] [address] PCP - General Internal Medicine 04/08/23 09/14/24 Clemente Gutierrez MD #2 [facility] [address] [place] [address] Consulting Physician Urological Surgery 05/21/23 Adrian Carr MD #2 [place] [address] Consulting Physician Pulmonary Disease 05/12/23 Shi Farmer Health Die Barber 08/06/24 08/09/24 documented as of this encounter
--- OUTSIDE RECORDS SUMMARY | 2024-10-18 16:45 | XMS_ITS | Encounter Summary ---
Author Organization [facility] Address [address] [place] [address] Phone Care Team Providers Care Electronic News Gathering Camera Person Name Role Phone Je Kerns MD Primary Care Provider [phone] Booker Sears MD Primary Care Provider [phone] Clemente Gutierrez MD Unavailable Adrian Carr MD Unavailable Shi Farmer Unavailable Unavailable Encounter Details Date Type Department Care Team (Late st Contact Info) Description 04/26/2022 Nursing Facility [facility] [address] [place] [address] Beka Ceron MD #[address] [place] [address] Social History Tobacco Use Types Packs/Day Years [...] Mane Figueredo - 04/26/2022 12:29 PM CDT [facility] History and Physical Chief Complaint: fall, generalized weakness requiring rehabilitation. HPI: Saw Christiansen is a 76 y.o. male who is transferred to [facility] from [facility] for post acute care rehabilitation. The [...] medical history of AAA (abdominal aortic aneurysm) ([facility]), Adenomatous colon polyp, C. difficile colitis, Central obesity, CKD (chronic kidney disease) stage 3, YZR64-66 ml/min ([facility]), DM (diabetes mellitus) ([facility]), HLD (hyperlipidemia), HTN (hypertension), and [...] Lovenox 40mg Q24h Advance Care Planning: Aggregate [id number] time, greater than 16 minutes was spent discussing end-of-life care planning with patient/family and/or Power of Fire Chief'S Aide. Discussed CPR, Intubation, treatment goals, and Quality [...] documented as of this encounter Care Teams Electronic News Gathering Camera Person Relationship Specialty Start Date End Date Je Kerns MD #2 [facility] [address] [place] [address] PCP - General Family Medicine 09/10/17 04/07/23 Booker Sears MD [address] [place] [address] PCP - General Internal Medicine 04/08/23 09/14/24 Clemente Gutierrez MD #2 [facility] [address] [place] [address] Consulting Physician Urological Surgery 05/21/23 Adrian Carr MD #2 [place] [address] Consulting Physician Pulmonary Disease 05/12/23 Shi Farmer Health Jewel Supervisor 08/06/24 08/09/24 documented as of this encounter
--- OUTSIDE RECORDS SUMMARY | 2024-10-18 16:45 | XMS_ITS | Encounter Summary ---
Author Organization [facility] Address [address] [place] [address] Phone Care Team Providers Care Radiotelegrapher Name Role Phone Je Kerns MD Primary Care Provider [phone] Booker Sears MD Primary Care Provider [phone] Clemente Gutierrez MD Unavailable Adrian Carr MD Unavailable Shi Farmer Unavailable Unavailable Encounter Details Date Type Department Care Team (Late st Contact Info) Description 09/10/2022 Nursing Facility [facility] [address] [place] [address] Ryan Dinero, PAC [address] [place], [place] [address] Social History Tobacco Use Types Packs/Day Years [...] Progress Notes * Ryan Dinero, PAC - 09/10/2022 2:03 PM CST [facility] NURSING PROGRESS NOTE Saw Christiansen is a 76 y.o. male at [facility] for long-term care. Was hospitalized at [facility] from March 20 through March 22 [...] patient today for routine monthly halfway visit He is lying comfortably in bed [...] PSEUDOMEMBRANOUS COLITIS; Surgeon: Dajuan Garcia DO; Location: [facility]; Service: Gastroenterology ??? ROTATOR CUFF [...] OF UNSPECIFIED SITE, WITHOUT RUPTURE Principal Result Compactor Driver: LIDIA BEGUM ([id number]) Box Sorter: JOSE ALFREDO SANFORD (CJALAFF) Cost Control Specialist Box Sorter: MABEL DUPLEX SCAN OF AORTA LTD [...] BY LIDIA BEGUM M.D. 07/05/2022 5:53:31 AM PRESSER COTTON GINNING. Assessment/Plan: Hypothyroidism Continue levothyroxine Monitor thyroid levels [...] this patient. This note was dictated using [employer] fluency dictation system and there may be errors in greaser operator. Despite proof reading the note, there may be mistakes and I apologize for those. By: Ryan Dinero, AN, 09/10/2022 2:03 PM PRESSER COTTON GINNING SER COTTON GINNING documented in this encounter Plan of Treatment [...] documented as of this encounter Care Teams Radiotelegrapher Relationship Specialty Start Date End Date Je Kerns MD #2 [facility] [address] [place] [address] PCP - General Family Medicine 09/10/17 04/07/23 Booker Sears MD [address] [place] [address] PCP - General Internal Medicine 04/08/23 09/14/24 Clemente Gutierrez MD #2 [facility] [address] [place] [address] Consulting Physician Urological Surgery 05/21/23 Adrian Carr MD #2 [place] [address] Consulting Physician Pulmonary Disease 05/12/23 Shi Farmer Health Coordinating Producer 08/06/24 08/09/24 documented as of this encounter
--- OUTSIDE RECORDS SUMMARY | 2024-10-18 16:45 | XMS_ITS | Clinical Summary ---
Author Organization [facility] Medical Office Building A Address [address] [place] [address] Care Team Providers Care Bag Machine Helper Name Role Phone Vidal García MD Unavailable Booker Sears MD Primary Care Provider + Allergies Active Allergy Reactions Criticality Noted Date Comments Penicillins Rash High 09/25/2018 breaks me out Other reaction(s): Unknown Medications benazepril (LOTENSIN) 20 mg tablet take 1 tablet by oral route every day 0 0 6 Active Additional Information Patient taking differently:20 mgoral Every morning, Indications: hypertension, Informant: [facility] Hauler Care Facility, Reported on 05/22/2023 amLODIPine (NORVASC) [...] 05/19/2023 RBBB 09/10/2022 Type 2 diabetes mellitus, [facility] long-term current use of insulin 08/13/2022 Overview (09/10/2022): Last Assessment & Plan: Condition: stable Discussed glucose control targets. Educated on: Lifestyle changes, Nutrition, Foot care and Medication compliance Follow up in: three months with PCP, Multiple Effect Evaporator Operator, Senior Sales Representative, Straight Cutter, Established eye care management specialist and Lime Sludge Mixer Assessment & Plan (01/03/2023 11:24 AM CDT): [...] CMP (COMPREHENSIVE METABOLIC PANEL) (09/12/2021 9:20 AM RECONSIGNMENT CLERK) Lab Results - (ABNORMAL) CMP (COMPREHENSIVE METABOLIC PANEL) (09/12/2021 9:20 AM RECONSIGNMENT CLERK) SODIUM 142 136 - 144 mmol/L 09/12/2021 1:44 PM [facility] POTASSIUM 4.5 3.5 - 5.1 mmol/L 09/12/2021 1:44 PM [facility] CHLORIDE 103 100 - 110 mmol/L 09/12/2021 1:44 PM [facility] CO2, VENOUS 24 22 - 32 mmol/L 09/12/2021 1:44 PM [facility] ANION GAP 19.5 8.0 - 20.0 mmol/L 09/12/2021 1:44 PM [facility] GLUCOSE 113 (H) 70 - 99 mg/dL 09/12/2021 1:44 PM [facility] BUN 22 8 - 23 mg/dL 09/12/2021 1:44 PM [facility] CREATININE, BLOOD 1.65 (H) 0.80 - 1.30 mg/dL 09/12/2021 1:44 PM [facility] BUN/CREATININE RATIO 13 12 - 20 ratio 09/12/2021 1:44 PM [facility] TOTAL PROTEIN 7.8 6.0 - 8.3 g/dL 09/12/2021 1:44 PM [facility] ALBUMIN 4.4 3.5 - 5.2 g/dL 09/12/2021 1:44 PM [facility] Comment: The colormetric methods used for the determination of Albumin may lead to falsely elevated test results in patients suffering from renal failure or insufficiency due to interference with other proteins. A/G RATIO 1.3 1.0 - 2.0 09/12/2021 1:44 PM [facility] CALCIUM 10.2 8.9 - 10.3 mg/dL 09/12/2021 1:44 PM [facility] T BILI 0.3 <=1.2 mg/dL 09/12/2021 1:44 PM [facility] SGOT (AST) 13 <=40 U/L 09/12/2021 1:44 PM [facility] SGPT (ALT) 11 <=41 U/L 09/12/2021 1:44 PM [facility] ALKALINE PHOSPHATASE 96 40 - 130 U/L 09/12/2021 1:44 PM [facility] GFR, EST. NONAFRICAN 41 (L) >=60 09/12/2021 1:44 PM [facility] GFR, EST. 49 (L) >=60 09/12/2021 1:44 PM [facility] Assessment & Plan (01/03/2023 11:26 AM [...] Follow up in: three months with PCP, Multiple Effect Evaporator Operator, Senior Sales Representative, Straight Cutter and Established eye care management specialist Assessment & Plan (01/03/2023 11:25 AM CDT): [...] on file Legal Sex Male 3:42 PM RECONSIGNMENT CLERK Gender Identity Not on file Sexual Orientation [...] 05/25/2019, 03/05 Medical Devices Implanted Type Area Director Medical Device Identifier Shelf Expiration Date Model / Serial / Lot Ethicon Endo Surgery Ligaclip Extra 2.6mm Ligate Open Small Clip Internal Titanium Latex Free Lt100 - [id number] - [id number] Implanted:Qt y: 1 on 01/02/2023 by Vidal García MD at [facility] Clip Ethicon Endo Surgery 05/03/2027 [id number] / [id number] / [id number] Wl [employer] Filley Excluder C3 23mm 14.5mm 19-21mm 12-13.5mm 12cm Sinusoidal [id number] - [id number] - [id number] Implanted:Qt y: 1 on 01/02/2023 by Vidal García MD at [facility] Endoprosthesis Infrarenal Aorta [employer] 06/17/2025 [id number] 12 / [id number] / [id number] Wl [employer] Excluder 16mm 13.5-14.5mm 9.5cm Stent Abrasion Resistant [id number] - [id number] - [id number] Implanted:Qt y: 1 on 01/02/2023 by Vidal García MD at [facility] Stent Right: Iliac W[employer] 06/09/2025 [id number] 00 / [id number] / Wl [employer] Excluder 16mm 13.5-14.5mm 11.5cm Stent Abrasion Resistant [id number] - [id number] - [id number] Implanted:Qt y: 1 on 01/02/2023 by Vidal García MD at [facility] Stent Left: Iliac W[employer] 05/29/2025 [id number] 00 / [id number] / Sanon Vascular Device Clsr Perclose Prostyle Sut-Mediatd Closure-Repa ir Sys 21133-53 - [id number] - [id number] Implanted:Qt y: 1 on 01/02/2023 by Vidal García MD at [facility] Vascular Closure Device Right: Femoral [employer] 10/01/2024 40313-9 3 / [id number] / [id number] [employer] V[employer] Device Clsr Perclose Prostyle Sut-Mediatd Closure-Repa ir Sys 79922-94 - [id number] - [id number] Implanted:Qt y: 1 on 01/02/2023 by Vidal García MD at [facility] Vascular Closure Device Right: Femoral [employer] 10/01/2024 94145-0 3 / [id number] / [id number] Sanon Vascular Device Clsr Perclose Prostyle Sut-Mediatd Closure-Repa ir Sys 14041-28 - [id number] - [id number] Implanted:Qt y: 1 on 01/02/2023 by Vidal García MD at [facility] Vascular Closure Device Left: Femoral Asnon V[employer] 10/01/2024 82638-5 3 / [id number] / [id number] San[employer] V[employer] Device Clsr Perclose Prostyle Sut-Mediatd Closure-Repa ir Sys 82782-46 - [id number] - [id number] Implanted:Qt y: 1 on 01/02/2023 by Vidal García MD at [facility] Vascular Closure Device Left: Femoral [employer] 10/01/2024 20944-0 3 / [id number] / [id number] Sanon Vascular Device Clsr Perclose Prostyle Sut-Mediatd Closure-Repa ir Sys 65862-51 - [id number] Implanted:Qt y: 1 on 01/02/2023 by Vidal García MD at [facility] Vascular Closure Device Left: Femoral [employer] 10/01/2024 90716-8 3 / / [id number] Sanon Vascular Device Clsr Perclose Prostyle Sut-Mediatd Closure-Repa ir Sys 64468-36 - [id number] Implanted:Qt y: 1 on 01/02/2023 by Vidal García MD at [facility] Vascular Closure Device Left: Femoral [employer] 10/01/2024 98816-7 3 / / [id number] Sanon Vascular Device Clsr Perclose Prostyle Sut-Mediatd Closure-Repa ir Sys 64722-77 - [id number] - [id number] Implanted:Qt y: 1 on 01/02/2023 by Vidal García MD at [facility] Vascular Closure Device Right: Iliac [employer] 10/01/2024 12148-7 3 / [id number] / [id number] Medtronic Inc Visi-Pro 10mm 57mm 135cm Balloon Expandable Radiopaque Open - [id number] Implanted:Qt y: 1 on 05/30/2023 by Vidal García MD at [facility] [employer] Inc 08/25/2023 PXB35-1 0-57-13 5 / / [id number] Medtronic Inc Visi-Pro 10mm 57mm 135cm Balloon Expandable Radiopaque Open - [id number] Implanted:Qt y: 1 on 05/30/2023 by Vidal García MD at [facility] [employer] 09/19/2024 PXB35-1 0-57-13 5 / / [id number] Sanon Vascular Starclose Se 6fr Clip Vascular Device Closure Nitinol Sterile 80690-23 - [id number] Implanted:Qt y: 1 on 05/30/2023 by Vidal García MD at [facility] [employer] 06/04/2024 11345-2 [id number] San[employer] Vascular Starclose Se 6fr Clip Vascular Device Closure Nitinol Sterile 37931-25 - [id number] Implanted:Qt y: 1 on 05/30/2023 by Vidal García MD at [facility] Vascular 06/04/2024 36412-7 41 [id number] Procedures Procedure Name Priority Date/Time Associated Diagnosis [...] BLOOD ORDERABLES Final R esult [facility] [address] Department [place] [address] [phone] * (ABNORMAL) Lipid panel (01/03/2023 12:06 AM CDT) Cholesterol 138 30 - 199 mg/dL [facility] Comment: Interpretive Data Ages < or [...] on 2018. Triglycerides 86 <=149 mg/dL [facility] Comment: Interpretive Data Ages < or [...] on 2018. HDL 36(L) >=40 mg/dL [facility] Comment: Interpretive Data Ages < or [...] 2018. LDL, calculated 85 <=129 mg/dL [facility] Comment: Interpretive Data Ages < or [...] revised on 2018. Non-HDL Cholesterol 102 mg/dL [facility] Comment: Interpretive Data Ages < or [...] last revised on 2018. Chol/HDL ratio 4 [facility] Blood 01/03/2023 12:0 6 AM CDT 01/03/2023 12:22 AM CDT us Vidal García MD LAB BLOOD ORDERABLES Final R esult [facility] Department [place] [address] * POCT hemoglobin A1c (12/31/2022 2:35 PM CDT) Hgb A1C, POC 5.6 4.0 - 5.6 % [facility] Est Average Gluc POC 114 mg/dL [facility] Comment: The ADA recommends reporting an estimated Average Glucose (eAG) with all Hemoglobin A1c results using the equation derived from a study of 507 normal and diabetic adults. Minority populations were underrepresented and children were not included. (Diabetes Care 31:2153-9002, 2008). The eAG is not equivalent to a fasting glucose. Blood 12/31/2022 2:35 PM CDT 12/31/2022 2:35 PM CDT Vidal García MD POINT OF CARE TEST ORDERABLE S Final Result [facility] Department [place] [address] from Last 3 Months or Most Recently Relevant to Health Maintenance Insurance [facility] MEDICARE [facility] Member Subscriber Plan / Payer (Ef fective 2024-Present) Name:Saw Christiansen Relation to Subscriber:Self Name:Saw Christiansen Payer ID:[id number] (NAIC) Group ID:Not on file Type:MEDICAID RISK OTHER Address: [address] [facility] Advance Directives For more information, please contact: [phone] * Full Code (Latest Code Status on File) Date Activated Date Inactivated Comments 01/02/2023 9:56 PM 01/06/2023 5:23 PM * Full Code Date Activated Date Inactivated Comments 01/02/2023 9:56 PM 01/02/2023 9:56 PM * Full Code Date Activated Date Inactivated Comments 01/02/2023 9:56 PM 01/02/2023 9:56 PM Care Teams Bag Machine Helper Relationship Specialty Start Date End Date Booker Sears MD [address] [place] [address] PCP - General Internal Medicine 05/19/23 [place]ía [place] [address] [facility] [address] [address] Consulting Physician Vascular Surgery 01/06/23
--- OUTSIDE RECORDS SUMMARY | 2024-10-18 16:45 | XMS_ITS | Encounter Summary ---
Author Organization [facility] Address [address] [place] [address] Phone Care Team Providers Care Cotton Tipper Name Role Phone Je Kerns MD Primary Care Provider [phone] Booker Sears MD Primary Care Provider [phone] Clemente Gutierrez MD Unavailable Adrian Carr MD Unavailable Shi Farmer Unavailable Unavailable Reason for Visit * Reason Comments Medication Refill Encounter Details Date Type Department Care Team (Late st Contact Info) Description 02/05/2021 Refill [facility] - Family Medicine [facility] [address] [place] [address] Je Kerns MD [address] [address] Medication Refill Social History Tobacco Use Types [...] documented as of this encounter Care Teams Cotton Tipper Relationship Specialty Start Date End Date Je Kerns MD [address] [address] PCP - General Family Medicine 09/10/17 04/07/23 Booker Sears MD [address] [place] [address] PCP - General Internal Medicine 04/08/23 09/14/24 Clemente Gutierrez MD [address] [address] Consulting Physician Urological Surgery 05/21/23 Adrian Carr MD [address] [place] [address] Consulting Physician Pulmonary Disease 05/12/23 Shi Farmer Health Leacher 08/06/24 08/09/24 documented as of this encounter
--- OUTSIDE RECORDS SUMMARY | 2024-10-18 16:45 | XMS_ITS | Encounter Summary ---
Author Organization [facility] Address [address] [place] [address] Phone Care Team Providers Care Film Masker Name Role Phone Je Kerns MD Primary Care Provider [phone] Booker Sears MD Primary Care Provider [phone] Clemente Gutierrez MD Unavailable Adrian Carr MD Unavailable Shi Farmer Unavailable Unavailable Reason for Visit * Reason Comments Medication Refill Encounter Details Date Type Department Care Team (Late st Contact Info) Description 12/20/2020 Refill [facility] [address] [address] Je Kerns MD [address] [address] Medication Refill Social History Tobacco Use Types [...] documented as of this encounter Care Teams Film Masker Relationship Specialty Start Date End Date Je Kerns MD [address] [facility] [address] [place] [address] PCP - General Family Medicine 09/10/17 04/07/23 Booker Sears MD [address] [place] [address] PCP - General Internal Medicine 04/08/23 09/14/24 Clemente Gutierrez MD [address] [facility] [address] [place] [address] Consulting Physician Urological Surgery 05/21/23 Adrian Carr MD [address] [place] [address] Consulting Physician Pulmonary Disease 05/12/23 Shi Farmer [facility] 08/06/24 08/09/24 documented as of this encounter
--- OUTSIDE RECORDS SUMMARY | 2024-10-18 16:45 | XMS_ITS | Referral Summary ---
Author Organization [facility] Medical Office Building A Address [address] [place] [address] Care Team Providers Care Emergency Generator Mechanic Name Role Phone Vidal García MD Unavailable [phone] Booker Sears MD Primary Care Provider + Allergies Active Allergy Reactions Criticality Noted Date Comments Penicillins Rash High 09/25/2018 breaks me out Other reaction(s): Unknown Medications benazepril (LOTENSIN) 20 mg tablet take 1 tablet by oral route every day 0 0 6 Active Additional Information Patient taking differently:20 mgoral Every morning, Indications: hypertension, Informant: Mainframe Systems Engineer Care Facility, Reported on 05/22/2023 amLODIPine (NORVASC) [...] 05/19/2023 RBBB 09/10/2022 Type [address] [facility] long-term current use of insulin 08/13/2022 Overview (09/10/2022): Last Assessment & Plan: Condition: stable Discussed glucose control targets. Educated on: Lifestyle changes, Nutrition, Foot care and Medication compliance Follow up in: three months with PCP, Vascular Physician, Lumber Material Handler, Chemical Processing Equipment Repairer, Established eye primary care sales representative and Clinical Analyst Assessment & Plan (01/03/2023 11:24 AM CDT): [...] CMP (COMPREHENSIVE METABOLIC PANEL) (09/12/2021 9:20 AM PANELBOARD TANK PUMPER) Lab Results - (ABNORMAL) CMP (COMPREHENSIVE METABOLIC PANEL) (09/12/2021 9:20 AM PANELBOARD TANK PUMPER) SODIUM 142 136 - 144 mmol/L 09/12/2021 1:44 PM [facility] POTASSIUM 4.5 3.5 - 5.1 mmol/L 09/12/2021 1:44 PM [facility] CHLORIDE 103 100 - 110 mmol/L 09/12/2021 1:44 PM [facility] CO2, VENOUS 24 22 - 32 mmol/L 09/12/2021 1:44 PM [facility] ANION GAP 19.5 8.0 - 20.0 mmol/L 09/12/2021 1:44 PM [facility] GLUCOSE 113 (H) 70 - 99 mg/dL 09/12/2021 1:44 PM [facility] BUN 22 8 - 23 mg/dL 09/12/2021 1:44 PM [facility] CREATININE, BLOOD 1.65 (H) 0.80 - 1.30 mg/dL 09/12/2021 1:44 PM [facility] BUN/CREATININE RATIO 13 12 - 20 ratio 09/12/2021 1:44 PM [facility] TOTAL PROTEIN 7.8 6.0 - 8.3 g/dL 09/12/2021 1:44 PM [facility] ALBUMIN 4.4 3.5 - 5.2 g/dL 09/12/2021 1:44 PM [facility] Comment: The colormetric methods used for the determination of Albumin may lead to falsely elevated test results in patients suffering from renal failure or insufficiency due to interference with other proteins. A/G RATIO 1.3 1.0 - 2.0 09/12/2021 1:44 PM [facility] CALCIUM 10.2 8.9 - 10.3 mg/dL 09/12/2021 1:44 PM [facility] T BILI 0.3 <=1.2 mg/dL 09/12/2021 1:44 PM [facility] SGOT (AST) 13 <=40 U/L 09/12/2021 1:44 PM [facility] SGPT (ALT) 11 <=41 U/L 09/12/2021 1:44 PM [facility] ALKALINE PHOSPHATASE 96 40 - 130 U/L 09/12/2021 1:44 PM [facility] GFR, EST. NONAFRICAN 41 (L) >=60 09/12/2021 1:44 PM [facility] GFR, EST. 49 (L) >=60 09/12/2021 1:44 PM [facility] Assessment & Plan (01/03/2023 11:26 AM [...] Follow up in: three months with PCP, Vascular Physician, Lumber Material Handler, Chemical Processing Equipment Repairer and Established eye primary care sales representative Assessment & Plan (01/03/2023 11:25 AM CDT): [...] on file Legal Sex Male 3:42 PM PANELBOARD TANK PUMPER Gender Identity Not on file Sexual Orientation [...] on file Medical Devices Implanted Type Area Remote Encoding Operations Supervisor Device Identifier Shelf Expiration Date Model / Serial / Lot Ethicon Endo Surgery Ligaclip Extra 2.6mm Ligate Open Small Clip Internal Titanium Latex Free Lt100 - [id number] - [id number] Implanted:Qt y: 1 on 01/02/2023 by Vidal García MD at [facility] Clip Ethicon Endo Surgery 05/03/2027 LT100 / [id number] / [id number] [employer] Tina Excluder C3 23mm 14.5mm 19-21mm 12-13.5mm 12cm Sinusoidal [id number] - [id number] - [id number] Implanted:Qt y: 1 on 01/02/2023 by Vidal García MD at [facility] Endoprosthesis Infrarenal Aorta [employer] 06/17/2025 [id number] 12 / [id number] / [id number] [employer] Excluder 16mm 13.5-14.5mm 9.5cm Stent Abrasion Resistant [id number] - [id number] - [id number] Implanted:Qt y: 1 on 01/02/2023 by Vidal García MD at [facility] Stent Right: Iliac [employer] 06/09/2025 [id number] 00 / [id number] / Wl [employer] Excluder 16mm 13.5-14.5mm 11.5cm Stent Abrasion Resistant [id number] - [id number] - [id number] Implanted:Qt y: 1 on 01/02/2023 by Vidal García MD at [facility] Stent Left: Iliac [employer] 05/29/2025 [id number] 00 / [id number] / [employer] V[employer] Device Clsr Perclose Prostyle Sut-Mediatd Closure-Repa ir Sys 88670-36 - [id number] - [id number] Implanted:Qt y: 1 on 01/02/2023 by Vidal García MD at [facility] Vascular Closure Device Right: Femoral [employer] 10/01/2024 61716-9 3 / [id number] / [id number] [employer] V[employer] Device Clsr Perclose Prostyle Sut-Mediatd Closure-Repa ir Sys 22108-07 - [id number] - [id number] Implanted:Qt y: 1 on 01/02/2023 by Vidal García MD at [facility] Vascular Closure Device Right: Femoral [employer] 10/01/2024 85797-7 3 / [id number] / [id number] [employer] V[employer] Device Clsr Perclose Prostyle Sut-Mediatd Closure-Repa ir Sys 73985-85 - [id number] - [id number] Implanted:Qt y: 1 on 01/02/2023 by Vidal García MD at [facility] Vascular Closure Device Left: Femoral [employer] 10/01/2024 02309-7 3 / [id number] / [id number] [employer] V[employer] Device Clsr Perclose Prostyle Sut-Mediatd Closure-Repa ir Sys 72671-27 - [id number] - [id number] Implanted:Qt y: 1 on 01/02/2023 by Vidal García MD at [facility] Vascular Closure Device Left: Femoral [employer] 10/01/2024 30717-4 3 / [id number] / [id number] [employer] V[employer] Device Clsr Perclose Prostyle Sut-Mediatd Closure-Repa ir Sys 32363-32 - [id number] Implanted:Qt y: 1 on 01/02/2023 by Vidal García MD at [facility] Vascular Closure Device Left: Femoral [employer] 10/01/2024 01353-3 3 / / [id number] [employer] V[employer] Device Clsr Perclose Prostyle Sut-Mediatd Closure-Repa ir Sys 94614-69 - [id number] Implanted:Qt y: 1 on 01/02/2023 by Vidal García MD at [facility] Vascular Closure Device Left: Femoral [employer] 10/01/2024 58674-1 3 / / [id number] [employer] V[employer] Device Clsr Perclose Prostyle Sut-Mediatd Closure-Repa ir Sys 44509-18 - [id number] - [id number] Implanted:Qt y: 1 on 01/02/2023 by Vidal García MD at [facility] Vascular Closure Device Right: Iliac [employer] 10/01/2024 99587-7 3 / [id number] / [id number] Medtronic Inc Visi-Pro 10mm 57mm 135cm Balloon Expandable Radiopaque Open - [id number] Implanted:Qt y: 1 on 05/30/2023 by Vidal García MD at [facility] [employer] 08/25/2023 PXB35-1 0-57-13 5 / / [id number] Med[employer]onic Inc Visi-Pro 10mm 57mm 135cm Balloon Expandable Radiopaque Open - [id number] Implanted:Qt y: 1 on 05/30/2023 by Vidal García MD at [facility] [employer] 09/19/2024 PXB35-1 0-57-13 5 / / [id number] [employer] Starclose Se 6fr Clip Vascular Device Closure Nitinol Sterile 11431-29 - [id number] Implanted:Qt y: 1 on 05/30/2023 by Vidal García MD at [facility] [employer] 06/04/2024 65614-8 41 [id number] [employer] Starclose Se 6fr Clip Vascular Device Closure Nitinol Sterile 47841-20 - [id number] Implanted:Qt y: 1 on 05/30/2023 by Vidal García MD at [facility] [employer] 06/04/2024 44775-1 [id number] Procedures Procedure Name Priority Date/Time Associated Diagnosis [...] LAB [place]LO[place] [address] [address] Department [place] [address] * (ABNORMAL) Lipid panel (01/03/2023 12:06 AM CDT) Cholesterol 138 30 - 199 mg/dL [facility] Comment: Interpretive Data Ages < or [...] on 2018. HDL 36(L) >=40 mg/dL [facility] Comment: Interpretive Data Ages < or [...] on 2018. LDL, calculated 85 <=129 mg/dL [facility] Comment: Interpretive Data Ages < or [...] revised on 2018. Non-HDL Cholesterol 102 mg/dL [facility] Comment: Interpretive Data Ages < or [...] last revised on 2018. Chol/HDL ratio 4 [facility] Blood 01/03/2023 12:0 6 AM CDT 01/03/2023 12:22 AM CDT us Vidal García MD LAB BLOOD ORDERABLES Final R esult [facility] [place] [address] * POCT hemoglobin A1c (12/31/2022 2:35 PM CDT) Hgb A1C, POC 5.6 4.0 - 5.6 % [facility] Est Average Gluc POC 114 mg/dL [facility] Comment: The ADA recommends reporting an estimated Average Glucose (eAG) with all Hemoglobin A1c results using the equation derived from a study of 507 normal and diabetic adults. Minority populations were underrepresented and children were not included. (Diabetes Care 31:5464-7112, 2008). The eAG is not equivalent to a fasting glucose. Blood 12/31/2022 2:35 PM CDT 12/31/2022 2:35 PM CDT Vidal García MD POINT OF CARE TEST ORDERABLE S Final Result [facility] Department [place] [address] from Last 3 Months or Most Recently Relevant to Health Maintenance [place] [place] [address] MEDICARE IDPA [facility] IDPA [facility] Advance Directives For more information, please contact: [phone] * Full Code (Latest Code Status on File) Date Activated Date Inactivated Comments 01/02/2023 9:56 PM 01/06/2023 5:23 PM * Full Code Date Activated Date Inactivated Comments 01/02/2023 9:56 PM 01/02/2023 9:56 PM * Full Code Date Activated Date Inactivated Comments 01/02/2023 9:56 PM 01/02/2023 9:56 PM Care Teams Emergency Generator Mechanic Relationship Specialty Start Date End Date Booker Sears MD [address] [place] [address] PCP - General Internal Medicine 05/19/23 V[place]ía [place] [address] [address] [address] Consulting Physician Vascular Surgery 01/06/23
--- OUTSIDE RECORDS SUMMARY | 2024-10-18 16:45 | XMS_ITS | Encounter Summary ---
Author Organization [facility] Address [address] [place] [address] Phone Care Team Providers Care Burlap Man Name Role Phone Je Kerns MD Primary Care Provider [phone] Booker Sears MD Primary Care Provider [phone] Clemente Gutierrez MD Unavailable Adrian Carr MD Unavailable Shi Farmer Unavailable Unavailable Encounter Details Date Type Department Care Team (Late st Contact Info) Description 10/11/2022 Nursing Facility [facility] [address] [place] [address] Ryan Dinero, PAC [address] [place], [place] [id number] Social History Tobacco Use Types Packs/Day Years [...] Dinero, PAC - 10/11/2022 3:29 PM CST [facility] NURSING PROGRESS NOTE Saw Christiansen is a 76 y.o. male at [facility] for long-term care. Was hospitalized at [facility] from March 20 through March 22 for generalized weakness and frequent falls, there was concern for UTI during hospitalization as urine culture grew outMRSA but this was felt to be asymptomatic bacteriuria. Was transferred to an outside fdc facility but ultimately did not regain enough ambulation to be discharged back to home so was transferred to this nursing facility on 04/19/2022 for long-term care and also to be with his who is a current long-term resident here. Subjective: Interval History: I am seeing the patient today for routine monthly penitentiary visit Patient is lying comfortably in bed. Says that he feels ???good?? . Has had a mild cough for several weeks now but no other upper respiratory symptoms or shortness of breath or any systemic symptoms. Feeling well otherwise. Nursing staff has no concerns about the patient. Past Medical History Positives Diagnosis Date ??? AAA (abdominal aortic aneurysm) ([facility]) ??? Adenomatous colon polyp ??? C. difficile colitis ??? Central obesity ??? CKD (chronic kidney disease) stage 3, GFR 30-59 ml/min ([facility]) ??? DM (diabetes mellitus) ([facility]) ??? HLD (hyperlipidemia) ??? HTN (hypertension) ??? [...] PSEUDOMEMBRANOUS COLITIS; Surgeon: Dajuan Garcia DO; Location: [facility]; Service: Gastroenterology ??? ROTATOR [...] OF UNSPECIFIED SITE, WITHOUT RUPTURE Principal Result Bioinformatics Specialist: LIDIA BEGUM ([id number]) Continuous Dryout Operator Helper: JOSE ALFREDO SANFORD (CJALAFF) Infrastructure Consultant Continuous Dryout Operator Helper: MABEL DUPLEX [employer] FINDINGS: [...] BY LIDIA BEGUM M.D. 07/05/2022 5:53:31 AM SHELL MOLD BONDING MACHINE OPERATOR. Assessment/Plan: Diabetes mellitus type 2 A1c of [...] or greater Generalized weakness and deconditioning Receiving penitentiary care Is currently able to transition himself from the bed to the wheelchair without assistance. Needs assistance with toileting. Chronic kidney disease stage 3 Avoid nephrotoxic agents Monitor labs periodically BPH Continue Flomax and oxybutynin Well controlled VTE Prophylaxis: Activity I discussed advanced care planning with this patient. This note was dictated using [employer] fluency dictation system and there may be errors in crowd controller. Despite proof reading the note, there may be mistakes and I apologize for those. By: AN Bynum, 10/11/2022 3:29 PM SHELL MOLD BONDING MACHINE OPERATOR L MOLD BONDING MACHINE OPERATOR documented in this encounter Plan of Treatment [...] documented as of this encounter Care Teams Burlap Man Relationship Specialty Start Date End Date Je Kerns MD #[address] [facility] [facility] [address] [place] [address] PCP - General Family Medicine 09/10/17 04/07/23 Booker Sears MD [address] [place] [address] PCP - General Internal Medicine 04/08/23 09/14/24 Clemente Gutierrez MD #[address] [facility] [address] [place] [address] Consulting Physician Urological Surgery 05/21/23 Adrian Carr MD [address] [place] [id number] Consulting Physician Pulmonary Disease 05/12/23 Shi Farmer Health Director Public 08/06/24 08/09/24 documented as of this encounter
[2024-10-18] MEDS: SODIUM CHLORIDE 0.9% IV 1,000 ML 125 ML IV CONT (17:14)
[2024-10-18 18:23] VITALS: BP 97/59; PULSE 90; RESP 12; O2SAT 97
[2024-10-18 19:08] VITALS: BP 104/72; PULSE 71; RESP 18; O2SAT 96
[2024-10-18 19:45] VITALS: BP 103/65; PULSE 78; RESP 18; TEMP 35.9; O2SAT 95
[2024-10-18 19:56] VITALS: BMI 37.5
--- NOTE | 2024-10-18 21:01 | P.HP_ITS ---
H&P: HPI History of Present Illness Date/Time: 10/18/24 21:01 Chief Complaint: Sent in from [facility] due to low blood pressure Narrative: 78-year-old male with a past medical history essential hypertension, hyperlipidemia, type 2 diabetes mellitus, chronic kidney disease stage 4, hypothyroidism and BPH who presented to the ER via EMS from [facility] due to hypotension. The patient reported that he complained to nursing staff that he was lightheaded. His blood pressure was 90/60 when they checked, on EMS arrival to the facility patient's blood pressure was 100/60. Blood pressure was variable in the ER with the lowest blood pressure being 96/75. He reports that ever since he became ill about 6 or 7 weeks ago with upper respiratory symptoms and was subsequently diagnosed with RSV and treated for pneumonia during recent hospitalization 3 through 10/14/2024 he has had persistent cough. He states that the cough is deep and intermittently productive of thick white sputum. He has noticed wheezing since the onset of his symptoms and the wheezing has been persistent and has worsened slightly since discharge. He denies a history of COPD and reports that his wheezing did improve somewhat while he was hospitalized while he was getting nebulizer treatments. However he does not receive inhalers or nebulizers at the [facility]. He reports that ever since he has become ill he has had decreased appetite. He denies any nausea or vomiting. Denies any chest pain but has been having some abdominal discomfort when he was coughing hard. He has not had any hypoxia. He thinks that he may have a history of obstructive sleep apnea but has never used a CPAP. He states that since his appetite has been poor he has developed some constipation. He will occasionally feel like he needs to go but then cannot passed stool. He denies sensation of incomplete bladder emptying. He has not noticed a change in a amount of urine output dysuria or hematuria. He has not had any recent change in medications besides antibiotic therapy with Levaquin and doxycycline which he completed yesterday. Labs in the ER demonstrated hemoglobin of 14.4 up from recent values of 12.7 and 13.3. Potassium was mildly elevated at 5.1 which was similar to prior BUN was 62 which was up from prior of 48 and 51. Creatinine was up from baseline ranging between 1.7 in 1.85 up to 2.59. The patient's RSV PCR was positive but this is persistent compared to his recent hospitalization on 10/09/24. Review of Systems 2 Review of Systems: 12 systems were reviewed with pertinent positives and negatives per HPI. Except as documented in the HPI, all other systems were reviewed and are negative. [facility] Past Medical History Medical History (Updated 10/18/24 @ 23:51 by Noelle Lemus DO) Hypothyroidism Embolism or thrombosis of aorta Vitamin D deficiency Overactive bladder Chronic kidney disease, stage 4 (severe) Benign prostatic hyperplasia Hyperlipidemia Hypertension Surgical History Surgical History (Updated 10/18/24 @ 23:45 by Noelle Lemus DO) No significant past surgical history Family History Family History Father Aneurysm Mother CHF (congestive heart failure) Social History Social History (Updated 10/18/24 @ 23:47 by Noelle Lemus DO) Social History: Surrogate medical decision maker: Danay Christiansen, spouse. Code status: DNR/DNI (per patient request) Smoking status: Never smoker Alcohol intake: never Substance use: never Substance use type: does not use Do You Feel Safe in your Home?: Yes Lack of Transportation: No Lack of Food: Never True Current Housing: I Have Housing Concerned About Future Housing: No Difficulty Paying Gas/Electric Bills: No Difficulty Paying for Meds: No Currently Unemployed: No Education: High School Diploma/GED Difficulty w/ Childcare or Family Care: No Living arrangements: [facility] Additional living arrangements comments: Lives at [facility] and rooms with his spouse since June 2024. They have been for 29 years. He had 4 children from a prior marriage. 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 Spiritual care concerns: No Meds Home Medications and Allergies Home Medications ?Medication ?Instructions ?Recorded ?Confirmed ?Type acetaminophen 500 mg capsule 1,000 mg PO Q4H PRN pain 10/09/24 10/18/24 History amlodipine 10 mg tablet 10 mg PO DAILY 10/09/24 10/18/24 History aspirin 81 mg capsule 81 mg PO DAILY 10/09/24 10/18/24 History atorvastatin 10 mg tablet 10 mg PO HS 10/09/24 10/18/24 History benazepril 20 mg tablet 20 mg PO DAILY 10/09/24 10/18/24 History cholecalciferol (vitamin D3) 50 50 mcg PO DAILY 10/09/24 10/18/24 History mcg (2,000 unit) tablet (D3 DOTS) famotidine 20 mg tablet 20 mg PO DAILY 10/09/24 10/18/24 History furosemide 20 mg tablet 20 mg PO DAILY 10/09/24 10/18/24 History guaifenesin 100 mg/5 mL oral 100 mg PO Q4H PRN cough 10/09/24 10/18/24 History liquid (Tussin Chest Congestion) levothyroxine 75 mcg tablet 75 mcg PO DAILY 10/09/24 10/18/24 History multivitamin (Daily Multi-Vitamin 1 tablet PO DAILY 10/09/24 10/18/24 History tablet) ondansetron HCl 4 mg tablet 4 mg PO Q8H PRN nausea and vomiting 10/09/24 10/18/24 History oxybutynin chloride 5 mg tablet 5 mg PO DAILY 10/09/24 10/18/24 History potassium chloride 10 mEq 10 meq PO .COMPLEX 10/09/24 10/18/24 History capsule,extended release sennosides 8.6 mg tablet (senna) 8.6 mg PO BID PRN constipation 10/09/24 10/18/24 History tamsulosin 0.4 mg capsule 0.4 mg PO DAILY 10/09/24 10/18/24 History Allergies Allergy/AdvReac Type Severity Reaction Status Date / Time Penicillins Allergy Unknown Rash Verified 10/09/24 16:49 Vital Signs Vital Signs - 24 hr 10/18/24 13:31 10/18/24 15:32 10/18/24 16:04 Temperature 97.6 F Pulse Rate 81 88 75 Respiratory Rate 23 H 56 H 13 Blood Pressure 106/82 96/75 L 102/61 Pulse Oximetry 94 98 95 Oxygen Delivery Room Air 10/18/24 18:23 10/18/24 19:08 Temperature Pulse Rate 90 71 Respiratory Rate 12 18 Blood Pressure 97/59 L 104/72 Pulse Oximetry 97 96 Oxygen Delivery Exam 2 Narrative: Weight 110 kg BMI 38 Const: Other: Obese, chronically ill-appearing, no acute distress, appears stated age HENMT: Other: Mucous membranes are tacky, no oral pharyngeal erythema, crowded posterior oropharynx, head is normocephalic folic atraumatic Eyes: Other: Pupils are equal and reactive, no scleral icterus, no conjunctival pallor Neck: Other: Large neck circumference, no JVD Resp: Other: Diffuse expiratory wheezing in all [place], frequent cough, no increased work of breathing Cardio: Other: Regular rate, regular rhythm, 2+ bilateral radial pedal pulses GI: Other: Soft, nontender, nondistended, positive bowel sounds Skin: Other: Several large areas of ecchymosis from recent IV sites most notably on the dorsum of the hand, no jaundice, no pallor, normal temperature to touch Neuro: Other: Alert orient x4, speech is clear, no facial asymmetry, moves all extremities equally Extrem: Other: No clubbing, cyanosis or edema, 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 Psych: Other: Appropriate mood and affect, pleasant and cooperative, judgment and insight intact H&P: Results Labs Labs: Laboratory Tests 10/18/24 14:09 10/18/24 14:09 10/18/24 10/18/24 14:09 15:58 WBC 10.1 H RBC 4.69 Hgb 14.4 Hct 45.2 MCV 96.4 MCH 30.7 MCHC 31.9 L RDW 13.7 Plt Count 176 MPV 10.3 Immature Gran % (Auto) 0.5 Neut % (Auto) 74.3 H Lymph % (Auto) 12.9 L Waller % (Auto) 8.6 H Eos % (Auto) 3.2 Baso % (Auto) 0.5 Lymph # (Auto) 1.30 Waller # (Auto) 0.9 H Eos # (Auto) 0.3 Baso # (Auto) 0.1 Abs Immat Gran (auto) 0.05 H Absolute Neuts (auto) 7.5 H Absolute Nucleated RBC 0.000 Nucleated RBC % 0.0 Sodium 143 Potassium 5.1 H Chloride 106 Carbon Dioxide 25 Anion Gap 12 BUN 62 H D Creatinine 2.59 H Estim Creat Clear Calc 25 Estimated GFR 24 L Glucose 108 Calcium 9.2 Total Bilirubin 0.8 AST 24 ALT 18 Alkaline Phosphatase 58 Total Protein 7.0 Albumin 4.1 Urine Color Yellow Urine Appearance Clear Urine pH 5.0 Ur Specific [place] 1.013 Urine Protein Negative Urine Glucose (UA) Negative Urine Ketones Negative Ur Blood (Man) Negative Urine Nitrate Negative Urine Bilirubin Negative Urine Urobilinogen 0.2 Leukocyte Esterase Rfl Negative Influenza A (RT-PCR) Negative Influenza B (RT-PCR) Negative RSV (RT-PCR) Positive A SARS-CoV-2 RNA (RT-PCR) Negative Impressions Chest X-Ray 10/18/24 15:27 IMPRESSION: No focal infiltrate or effusion. EKG: Personally reviewed and interpreted. Sinus rhythm with frequent premature ventricular complexes rate of 80 right bundle-branch block, indeterminate axis. Patient had prior EKGs demonstrating AFib which has resolved. Cardiology interpretation pending. All imaging and EKGs personally reviewed and interpreted. And unless stated otherwise agree with radiologic and cardiology interpretation. Assessment and Plan Assessment and plan (1) Acute kidney injury superimposed on stage 4 chronic kidney disease: Code(s): N17.9 - Acute kidney failure, unspecified; N18.4 - Chronic kidney disease, stage 4 (severe) Status: Acute (2) Hypotension: Qualifiers: Hypotension type: hypotension due to hypovolemia Qualified Code(s): E 86.1 - Hypovolemia Code(s): I95.9 - Hypotension, unspecified Status: Acute (3) Acute bronchitis due to respiratory syncytial virus: Code(s): J20.5 - Acute bronchitis due to respiratory syncytial virus Status: Acute (4) Hyperkalemia: Code(s): E87.5 - Hyperkalemia Status: Acute (5) Benign prostatic hyperplasia: Qualifiers: Lower urinary tract symptom detail: unspecified Lower urinary tract symptom presence: symptoms present Qualified Code(s): N40.1 - Benign prostatic hyperplasia with lower urinary tract symptoms Code(s): N40.0 - Benign prostatic hyperplasia without lower urinary tract symptoms Status: Acute Plan Patient presented with mild hypotension that was fluid responsive. Likely due to hypovolemia and subsequently resulting in acute kidney injury on chronic kidney disease with associated mild hyperkalemia. At this time will hold the patient's home diuretic therapy, potassium supplement and ELIANA-inhibitor. Will provide IV fluid hydration and will repeat electrolyte panel in a.m.. Will monitor strict I&O's and daily weight. Will avoid nephrotoxic medications. Patient does have history of BPH will check postvoid residual. Will continue home Flomax. If no evidence of incomplete bladder emptying or urinary retention I will order the patient's oxybutynin otherwise it will be held. Will also check orthostatic vital signs. The patient does have marked wheezing and is significant cough. 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 Will give the patient 1 dose of IV Solu-Medrol and then place patient on scheduled prednisone p.o. daily for [address] patient on scheduled DuoNeb. Otherwise patient's home medications will reviewed and reconciled with appropriate adjustments. Patient has been admitted as observation status. Quality VTE Prophylaxis VTE prophylaxis: mechanical ordered (SCDs) Hospitalist MIPS Advance Care Plan I have confirmed that the patient's Advanced Care Plan is present, code status is documented, or surrogate decision maker is listed in patient medical record.: Yes Medication Reconciliation I have utilized all available resources to obtain, update and review the patients current medications (includes all prescriptions, OTC, herbals, cannabis, and nutritional supplements).: Yes
[2024-10-18] MEDS: LACTATED RINGERS 1,000 ML 125 ML IV CONT (21:24)
--- NOTE | 2024-10-18 21:25 | ADMGEN ---
This patient, Saw Christiansen, was admitted to 3 [facility] Surg Room 321-02. Patient/family oriented to hospital policies and general routines including ID bracelet, bed and alarms, visiting hours, pain management, procedures, bathroom and other care routines, personal items, smoking policy, room service/diet, and visiting hours. Information on how to activate the Rapid Response Team has been discussed. Patient/Family are encouraged to report perceived risks to care and to ask questions if they do not understand what they are told or what they should do.
[2024-10-19] VITALS (9 sets, daily range): BP systolic 119–133; BP diastolic 66–67; PULSE 83–93; RESP 16–20; TEMP 36.4–36.9; O2SAT 92–97
[2024-10-19] MEDS: methylPREDNISolone SOD SUCC 125 MG VIAL 60 MG IV PUSH (00:10)
[2024-10-19] MEDS: LACTATED RINGERS 1,000 ML 125 ML IV CONT ×3 (05:25→21:23)
[2024-10-19 07:04] LABS: Anion Gap 12 mmol/L (4-12); Blood Urea Nitrogen 53 mg/dL (9-20); Calcium 8.8 mg/dL (8.4-10.2); Carbon Dioxide 22 mmol/L (22-30); Chloride 109 mmol/L (98-107); Estimated CRCL calculation 29 ml/min; Estimated Glomerular Filt Rate 29; Glucose 153 mg/dL (65-110); Potassium 5.2 mmol/L (3.4-5.0); Sodium 143 mmol/L (137-145)
[2024-10-19] MEDS: IPRATROPIUM 0.5 MG/ALBUTEROL SULFATE 2.5 MG AMPUL.NEB 3 ML INHALATION ×3 (08:15→21:08)
[2024-10-19] MEDS: predniSONE 20 MG TABLET 60 MG PO (08:28)
[2024-10-19] MEDS: MULTIVITAMINS THERAPEUTIC TAB (*BKC) 1 TABLET PO (10:48)
[2024-10-19] MEDS: ASPIRIN 81 MG ENTERIC TABLET PO (10:48)
[2024-10-19] MEDS: TAMSULOSIN HCL 0.4 MG CAPSULE PO (10:48)
[2024-10-19] MEDS: CHOLECALCIFEROL 1,000 UNITS TABLET 2000 UNITS PO (10:48)
[2024-10-19] MEDS: LEVOTHYROXINE SODIUM 75 MCG TABLET PO (10:48)
[2024-10-19] MEDS: FAMOTIDINE 20 MG TABLET PO (10:48)
--- NOTE | 2024-10-19 15:29 | P.PNIM_ITS ---
Progress Note: A&P Assessment and Plan (1) Acute kidney injury superimposed on stage 4 chronic kidney disease: Code(s): N17.9 - Acute kidney failure, unspecified; N18.4 - Chronic kidney disease, stage 4 (severe) Status: Acute (2) Hypotension: Qualifiers: Hypotension type: hypotension due to hypovolemia Qualified Code(s): E86.1 - Hypovolemia Code(s): I95.9 - Hypotension, unspecified Status: Acute (3) Acute bronchitis due to respiratory syncytial virus: Code(s): J20.5 - Acute bronchitis due to respiratory syncytial virus Status: Acute (4) Hyperkalemia: Code(s): E87.5 - Hyperkalemia Status: Acute (5) Benign prostatic hyperplasia: Qualifiers: Lower urinary tract symptom presence: symptoms present Lower urinary tract symptom detail: unspecified Qualified Code(s): N40.1 - Benign prostatic hyperplasia with lower urinary tract symptoms Code(s): N40.0 - Benign prostatic hyperplasia without lower urinary tract symptoms Status: Acute Plan Patient presented with mild hypotension that was fluid responsive. Likely due to hypovolemia and subsequently resulting in acute kidney injury on chronic kidney disease with associated mild hyperkalemia. At this time will hold the patient's home diuretic therapy, potassium supplement and ELIANA-inhibitor. Will provide IV fluid hydration and will repeat electrolyte panel in a.m.. Will monitor strict I&O's and daily weight. Will avoid nephrotoxic medications. Patient does have history of BPH will check postvoid residual. Will continue home Flomax. If no evidence of incomplete bladder emptying or urinary retention I will order the patient's oxybutynin otherwise it will be held. Will also check orthostatic vital signs. The patient does have marked wheezing and is significant cough. Given his recent infection with RSV I suspect he has some component of [employer] bronchitis given he does not have a history of COPD or chronic underlying lung disease. Will give the patient 1 dose of IV Solu-Medrol and then place patient on scheduled prednisone p.o. daily for [address] patient on scheduled DuoNeb. today patient presented with hypotension which responded to IVF suggestion most likely due to hypovolemia 2/2 poor PO intake as BP has improved as well slight improvement in his BUN and creatinine, patient was recently diagnosed with RSV and was treated however he does have persisting cough, patient was started on a short course of prednisone, will monitor and plan, will have PT/OT evaluate the patient. Otherwise patient's home medications will reviewed and reconciled with appropriate adjustments. Patient has been admitted as observation status. Subjective Date/time seen: 10/19/24 15:29 Interval history: Sent in from detention due to low blood pressure Narrative: 78-year-old male with a past medical history essential hypertension, hyperlipidemia, type 2 diabetes mellitus, chronic kidney disease stage 4, hypothyroidism and BPH who presented to the ER via EMS from [facility] due to hypotension. The patient reported that he complained to nursing staff that he was lightheaded. His blood pressure was 90/60 when they checked, on EMS arrival to the facility patient's blood pressure was 100/60. Blood pressure was variable in the ER with the lowest blood pressure being 96/75. He reports that ever since he became ill about 6 or 7 weeks ago with upper respiratory symptoms and was subsequently diagnosed with RSV and treated for pneumonia during recent hospitalization 3 8 through 10/14/2024 he has had persistent cough. He states that the cough is deep and intermittently productive of thick white sputum. He has noticed wheezing since the onset of his symptoms and the wheezing has been persistent and has worsened slightly since discharge. He denies a history of COPD and reports that his wheezing did improve somewhat while he was hospitalized while he was getting nebulizer treatments. However he does not receive inhalers or nebulizers at the detention. He reports that ever since he has become ill he has had decreased appetite. He denies any nausea or vomiting. Denies any chest pain but has been having some abdominal discomfort when he was coughing hard. He has not had any hypoxia. He thinks that he may have a history of obstructive sleep apnea but has never used a CPAP. He states that since his appetite has been poor he has developed some constipation. He will occasionally feel like he needs to go but then cannot passed stool. He denies sensation of incomplete bladder emptying. He has not noticed a change in a amount of urine output dysuria or hematuria. He has not had any recent change in medications besides antibiotic therapy with Levaquin and doxycycline which he completed yesterday. today patient presented with hypotension which responded to IVF suggestion most likely due to hypovolemia 2/2 poor PO intake as BP has improved as well slight improvement in his BUN and creatinine, patient was recently diagnosed with RSV and was treated however he does have persisting cough, patient was started on a short course of prednisone, will monitor and plan, will have PT/OT evaluate the patient. Review of Systems Review of Systems: 12 systems were reviewed with pertinent positives and negatives per HPI. Except as documented in the HPI, all other systems were reviewed and are negative. Exam Narrative: Elderly frail Patient is comfortable, NAD HEENT: eyes are clear and none icteric LUNGS:CTA HEART: RR S1S2 ABD: BS+, Soft and nontender Lower extremities: no edema SKIN: nonjaundiced Neuro: grossly intact. Objective Data Vital Signs Vital Signs: Vital Signs - 24 hr 10/18/24 15:32 10/18/24 16:04 10/18/24 18:23 Temperature Pulse Rate 88 75 90 Respiratory Rate 56 H 13 12 Blood Pressure 96/75 L 102/61 97/59 L Pulse Oximetry 98 95 97 Oxygen Delivery 10/18/24 19:08 10/18/24 19:45 10/18/24 20:00 Temperature 35.9 C L Pulse Rate 71 78 Respiratory Rate 18 18 Blood Pressure 104/72 103/65 Pulse Oximetry 96 95 Oxygen Delivery Room Air 10/19/24 04:35 10/19/24 08:15 10/19/24 08:15 Temperature 36.9 C Pulse Rate 86 88 Respiratory Rate 20 18 Blood Pressure 128/67 Pulse Oximetry 95 92 Oxygen Delivery Room Air 10/19/24 08:23 10/19/24 08:30 10/19/24 14:00 Temperature 36.4 C L Pulse Rate 93 86 Respiratory Rate 18 18 Blood Pressure 119/66 Pulse Oximetry 94 Oxygen Delivery Room Air 10/19/24 14:15 Temperature Pulse Rate 85 Respiratory Rate 18 Blood Pressure Pulse Oximetry Oxygen Delivery Intake/Output Intake/Output: Intake & Output 10/16/24 10/17/24 10/18/24 10/19/24 23:59 23:59 23:59 23:59 Intake Total 1000.0 2447.1 Output Total 400 Balance 1000.0 2047.1 Meds/Results Medications: Active Medications Generic Name Dose Route Start Last Admin Trade Name Freq PRN Reason Stop Dose Admin Acetaminophen 1,000 mg 10/19/24 09:06 Acetaminophen 500 Mg Tablet PO Q4H PRN pain Albuterol/Ipratropium 3 ml 10/19/24 02:00 10/19/24 14:14 Ipratropium 0.5 Mg/Albuterol Sulfate 2.5 Mg Ampul.Neb 3 Ml INHALATION 3 ml Q6HRT SHAMEKA Administration Aspirin 81 mg 10/19/24 09:20 10/19/24 10:48 Aspirin 81 Mg Enteric Tablet PO 11/19/24 09:19 81 mg DAILY SHAMEKA Administration Atorvastatin Calcium 10 mg 10/19/24 21:00 Atorvastatin 10 Mg Tablet PO HS SHAMEKA Famotidine 20 mg 10/19/24 09:20 10/19/24 10:48 Famotidine 20 Mg Tablet PO 20 mg DAILY SHAMEKA Administration Guaifenesin 100 mg 10/19/24 09:06 Guaifenesin 200 Mg/10 Ml Udc PO Q4H PRN cough Lactated Ringer's 1,000 mls @ 125 mls/hr 10/18/24 17:35 10/19/24 10:50 Lr - Lactated Ringers Iv IV CONT 125 mls/hr .Q8H SHAMEKA Administration Levothyroxine Sodium 75 mcg 10/19/24 09:20 10/19/24 10:48 Levothyroxine Sodium 75 Mcg Tablet PO 75 mcg DAILY@0630 [facility] Administration Multivitamins Therapeutic 1 tablet 10/19/24 09:20 10/19/24 10:48 Multivitamins Therapeutic Tab (*Bkc) PO 1 tablet DAILY SHAMEKA Administration Ondansetron HCl 4 mg 10/19/24 09:06 Ondansetron Hcl Odt 4 Mg Tablet PO Q8H PRN nausea and vomiting Prednisone 60 mg 10/19/24 08:00 10/19/24 08:28 Prednisone 20 Mg Tablet PO 60 mg DAILY@0800 SHAMEKA Administration Senna 8.6 mg 10/19/24 09:06 Sennosides 8.6 Mg Tablet PO BID PRN constipation Tamsulosin HCl 0.4 mg 10/19/24 09:20 10/19/24 10:48 Tamsulosin Hcl 0.4 Mg Capsule PO 0.4 mg DAILY SHAMEKA Administration Vitamin D 2,000 units 10/19/24 09:20 10/19/24 10:48 Cholecalciferol 1,000 Units Tablet PO 2,000 units DAILY SHAMEKA Administration Radiology Results: ITS Impressions Chest X-Ray 10/18/24 15:27 IMPRESSION: No focal infiltrate or effusion. Labs Labs: Laboratory Results - last 24 hr 10/18/24 10/19/24 15:58 06:02 Sodium 143 Potassium 5.2 H Chloride 109 H Carbon Dioxide 22 Anion Gap 12 BUN 53 H Creatinine 2.20 H Estim Creat Clear Calc 29 Estimated GFR 29 L Glucose 153 H Calcium 8.8 Urine Color Yellow Urine Appearance Clear Urine pH 5.0 Ur Specific Brady 1.013 Urine Protein Negative Urine Glucose (UA) Negative Urine Ketones Negative Ur Blood (Man) Negative Urine Nitrate Negative Urine Bilirubin Negative Urine Urobilinogen 0.2 Leukocyte Esterase Rfl Negative Quality VTE Prophylaxis VTE prophylaxis: mechanical ordered (SCDs)
[2024-10-19] MEDS: ATORVASTATIN 10 MG TABLET PO (21:23)
[2024-10-20] VITALS (12 sets, daily range): BP systolic 117–130; BP diastolic 62–65; PULSE 67–86; RESP 15–18; TEMP 36.1–37.1; O2SAT 5–96
[2024-10-20] MEDS: IPRATROPIUM 0.5 MG/ALBUTEROL SULFATE 2.5 MG AMPUL.NEB 3 ML INHALATION ×4 (02:48→20:45)
[2024-10-20] MEDS: LACTATED RINGERS 1,000 ML 125 ML IV CONT ×3 (05:35→21:20)
[2024-10-20] MEDS: LEVOTHYROXINE SODIUM 75 MCG TABLET PO (06:20)
[2024-10-20 06:50] LABS: Hematocrit 38.4 % (42.0-52.0); Hemoglobin 12.2 g/dL (14.0-18.0); Mean Corpuscular HGB Conc 31.8 g/dl (32-36); Mean Corpuscular Hemoglobin 30.6 pg (26-34); Mean Corpuscular Volume 96.2 fl (80-100); Mean Platelet Volume 10.5 fl (7.4-10.4); Platelet Count Result 145 k/mm3 (150-375); Red Blood Count 3.99 M/mm3 (4.6-6.20); Red Cell Distribution Width 13.5 % (11.5-14.5); White Blood Count 9.3 K/mm3 (4.5-10.0)
[2024-10-20 07:03] LABS: Anion Gap 8 mmol/L (4-12); Blood Urea Nitrogen 46 mg/dL (9-20); Calcium 8.4 mg/dL (8.4-10.2); Carbon Dioxide 26 mmol/L (22-30); Chloride 108 mmol/L (98-107); Estimated CRCL calculation 38 ml/min; Estimated Glomerular Filt Rate 40; Glucose 161 mg/dL (65-110); Magnesium 1.8 mg/dL (1.6-2.3); Potassium 4.3 mmol/L (3.4-5.0); Sodium 142 mmol/L (137-145)
[2024-10-20] MEDS: FAMOTIDINE 20 MG TABLET PO (08:54)
[2024-10-20] MEDS: CHOLECALCIFEROL 1,000 UNITS TABLET 2000 UNITS PO (08:54)
[2024-10-20] MEDS: predniSONE 20 MG TABLET 60 MG PO (08:54)
[2024-10-20] MEDS: ASPIRIN 81 MG ENTERIC TABLET PO (08:54)
[2024-10-20] MEDS: MULTIVITAMINS THERAPEUTIC TAB (*BKC) 1 TABLET PO (08:54)
[2024-10-20] MEDS: TAMSULOSIN HCL 0.4 MG CAPSULE PO (08:54)
--- NOTE | 2024-10-20 13:17 | P.PNIM_ITS ---
Progress Note: A&P Assessment and Plan (1) Acute kidney injury superimposed on stage 4 chronic kidney disease: Code(s): N17.9 - Acute kidney failure, unspecified; N18.4 - Chronic kidney disease, stage 4 (severe) Status: Acute (2) Hypotension: Qualifiers: Hypotension type: hypotension due to hypovolemia Qualified Code(s): E86.1 - Hypovolemia Code(s): I95.9 - Hypotension, unspecified Status: Acute (3) Acute bronchitis due to respiratory syncytial virus: Code(s): J20.5 - Acute bronchitis due to respiratory syncytial virus Status: Acute (4) Hyperkalemia: Code(s): E87.5 - Hyperkalemia Status: Acute (5) Benign prostatic hyperplasia: Qualifiers: Lower urinary tract symptom presence: symptoms present Lower urinary tract symptom detail: unspecified Qualified Code(s): N40.1 - Benign prostatic hyperplasia with lower urinary tract symptoms Code(s): N40.0 - Benign prostatic hyperplasia without lower urinary tract symptoms Status: Acute Plan Patient presented with mild hypotension that was fluid responsive. Likely due to hypovolemia and subsequently resulting in acute kidney injury on chronic kidney disease with associated mild hyperkalemia. At this time will hold the patient's home diuretic therapy, potassium supplement and ELIANA-inhibitor. Will provide IV fluid hydration and will repeat electrolyte panel in a.m.. Will monitor strict I&O's and daily weight. Will avoid nephrotoxic medications. Patient does have history of BPH will check postvoid residual. Will continue home Flomax. If no evidence of incomplete bladder emptying or urinary retention I will order the patient's oxybutynin otherwise it will be held. Will also check orthostatic vital signs. The patient does have marked wheezing and is significant cough. Given his recent infection with RSV I suspect he has some component of [employer] bronchitis given he does not have a history of COPD or chronic underlying lung disease. Will give the patient 1 dose of IV Solu-Medrol and then place patient on scheduled prednisone p.o. daily for [address] patient on scheduled DuoNeb. patient presented with hypotension which responded to IVF suggestion most likely due to hypovolemia 2/2 poor PO intake as BP has improved as well slight improvement in his BUN and creatinine, patient was recently diagnosed with RSV and was treated however he does have persisting cough, patient was started on a short course of prednisone, today patient eating his breakfast, feels little better and will monitor and plan, will have PT/OT evaluate the patient. Otherwise patient's home medications will reviewed and reconciled with appropriate adjustments. Patient has been admitted as observation status. Subjective Date/time seen: 10/20/24 13:17 Interval history: Sent in from long term due to low blood pressure Narrative: 78-year-old male with a past medical history essential hypertension, hyperlipidemia, type 2 diabetes mellitus, chronic kidney disease stage 4, hypothyroidism and BPH who presented to the ER via EMS from [facility] due to hypotension. The patient reported that he complained to nursing staff that he was lightheaded. His blood pressure was 90/60 when they checked, on EMS arrival to the facility patient's blood pressure was 100/60. Blood pressure was variable in the ER with the lowest blood pressure being 96/75. He reports that ever since he became ill about 6 or 7 weeks ago with upper respiratory symptoms and was subsequently diagnosed with RSV and treated for pneumonia during recent hospitalization 3 8 through 10/14/2024 he has had persistent cough. He states that the cough is deep and intermittently productive of thick white sputum. He has noticed wheezing since the onset of his symptoms and the wheezing has been persistent and has worsened slightly since discharge. He denies a history of COPD and reports that his wheezing did improve somewhat while he was hospitalized while he was getting nebulizer treatments. However he does not receive inhalers or nebulizers at the long term. He reports that ever since he has become ill he has had decreased appetite. He denies any nausea or vomiting. Denies any chest pain but has been having some abdominal discomfort when he was coughing hard. He has not had any hypoxia. He thinks that he may have a history of obstructive sleep apnea but has never used a CPAP. He states that since his appetite has been poor he has developed some constipation. He will occasionally feel like he needs to go but then cannot passed stool. He denies sensation of incomplete bladder emptying. He has not noticed a change in a amount of urine output dysuria or hematuria. He has not had any recent change in medications besides antibiotic therapy with Levaquin and doxycycline which he completed yesterday. patient presented with hypotension which responded to IVF suggestion most likely due to hypovolemia 2/2 poor PO intake as BP has improved as well slight improvement in his BUN and creatinine, patient was recently diagnosed with RSV and was treated however he does have persisting cough, patient was started on a short course of prednisone, today patient eating his breakfast, feels little better and will monitor and plan, will have PT/OT evaluate the patient. Review of Systems Review of Systems: 12 systems were reviewed with pertinent positives and negatives per HPI. Except as documented in the HPI, all other systems were reviewed and are negative. Exam Narrative: Elderly frail Patient is comfortable, NAD HEENT: eyes are clear and none icteric LUNGS:CTA HEART: RR S1S2 ABD: BS+, Soft and nontender Lower extremities: no edema SKIN: nonjaundiced Neuro: grossly intact. Objective Data Vital Signs Vital Signs: Vital Signs - 24 hr 10/19/24 14:00 10/19/24 14:15 10/19/24 14:25 Temperature 36.4 C L Pulse Rate 86 85 90 Respiratory Rate 18 18 18 Blood Pressure 119/66 Pulse Oximetry 94 Oxygen Delivery 10/19/24 20:00 10/19/24 21:08 10/19/24 21:08 Temperature Pulse Rate 91 Respiratory Rate 16 Blood Pressure Pulse Oximetry 97 Oxygen Delivery Room Air Room Air 10/19/24 21:14 10/19/24 21:29 10/20/24 02:48 Temperature 36.6 C Pulse Rate 87 83 67 Respiratory Rate 16 18 16 Blood Pressure 133/66 Pulse Oximetry 95 Oxygen Delivery 10/20/24 02:56 10/20/24 05:35 10/20/24 08:44 Temperature 36.6 C Pulse Rate 68 77 Respiratory Rate 16 18 Blood Pressure 117/65 Pulse Oximetry 5 L 95 Oxygen Delivery Room Air 10/20/24 08:45 10/20/24 08:54 Temperature Pulse Rate 83 76 Respiratory Rate 16 16 Blood Pressure Pulse Oximetry Oxygen Delivery Intake/Output Intake/Output: Intake & Output 10/17/24 10/18/24 10/19/24 10/20/24 23:59 23:59 23:59 23:59 Intake Total 1000.0 4057.1 2129.2 Output Total 1400 200 Balance 1000.0 2657.1 1929.2 Meds/Results Medications: Active Medications Generic Name Dose Route Start Last Admin Trade Name Freq PRN Reason Stop Dose Admin Acetaminophen 1,000 mg 10/19/24 09:06 Acetaminophen 500 Mg Tablet PO Q4H PRN pain Albuterol/Ipratropium 3 ml 10/19/24 02:00 10/20/24 08:45 Ipratropium 0.5 Mg/Albuterol Sulfate 2.5 Mg Ampul.Neb 3 Ml INHALATION 3 ml Q6HRT SHAMEKA Administration Aspirin 81 mg 10/19/24 09:20 10/20/24 08:54 Aspirin 81 Mg Enteric Tablet PO 11/19/24 09:19 81 mg DAILY SHAMEKA Administration Atorvastatin Calcium 10 mg 10/19/24 21:00 10/19/24 21:23 Atorvastatin 10 Mg Tablet PO 10 mg HS SHAMEKA Administration Famotidine 20 mg 10/19/24 09:20 10/20/24 08:54 Famotidine 20 Mg Tablet PO 20 mg DAILY SHAMEKA Administration Guaifenesin 100 mg 10/19/24 09:06 Guaifenesin 200 Mg/10 Ml Udc PO Q4H PRN cough Lactated Ringer's 1,000 mls @ 125 mls/hr 10/18/24 17:35 10/20/24 13:01 Lr - Lactated Ringers Iv IV CONT 125 mls/hr .Q8H SHAMEKA Administration Levothyroxine Sodium 75 mcg 10/19/24 09:20 10/20/24 06:20 Levothyroxine Sodium 75 Mcg Tablet PO 75 mcg DAILY@0630 SHAMEKA Administration Multivitamins Therapeutic 1 tablet 10/19/24 09:20 10/20/24 08:54 Multivitamins Therapeutic Tab (*Bkc) PO 1 tablet DAILY SHAMEKA Administration Ondansetron HCl 4 mg 10/19/24 09:06 Ondansetron Hcl Odt 4 Mg Tablet PO Q8H PRN nausea and vomiting Prednisone 60 mg 10/19/24 08:00 10/20/24 08:54 Prednisone 20 Mg Tablet PO 60 mg DAILY@0800 SHAMEKA Administration Senna 8.6 mg 10/19/24 09:06 Sennosides 8.6 Mg Tablet PO BID PRN constipation Tamsulosin HCl 0.4 mg 10/19/24 09:20 10/20/24 08:54 Tamsulosin Hcl 0.4 Mg Capsule PO 0.4 mg DAILY SHAMEKA Administration Vitamin D 2,000 units 10/19/24 09:20 10/20/24 08:54 Cholecalciferol 1,000 Units Tablet PO 2,000 units DAILY SHAMEKA Administration Radiology Results: ITS Impressions Chest X-Ray 10/18/24 15:27 IMPRESSION: No focal infiltrate or effusion. Labs Labs: Laboratory Results - last 24 hr 10/20/24 06:24 WBC 9.3 RBC 3.99 L Hgb 12.2 L Hct 38.4 L MCV 96.2 MCH 30.6 MCHC 31.8 L RDW 13.5 Plt Count 145 L MPV 10.5 H Sodium 142 Potassium 4.3 Chloride 108 H Carbon Dioxide 26 Anion Gap 8 BUN 46 H Creatinine 1.66 H Estim Creat Clear Calc 38 Estimated GFR 40 L Glucose 161 H Calcium 8.4 Magnesium 1.8 Quality VTE Prophylaxis VTE prophylaxis: mechanical ordered (SCDs)
[2024-10-20] MEDS: ATORVASTATIN 10 MG TABLET PO (20:13)
[2024-10-21] VITALS (12 sets, daily range): BP systolic 111–134; BP diastolic 65–92; PULSE 20–88; RESP 16–88; TEMP 36.1–36.9; O2SAT 94–99; BMI 42.2
[2024-10-21] MEDS: IPRATROPIUM 0.5 MG/ALBUTEROL SULFATE 2.5 MG AMPUL.NEB 3 ML INHALATION ×5 (02:37→21:50)
[2024-10-21] MEDS: LACTATED RINGERS 1,000 ML 125 ML IV CONT ×3 (04:50→20:30)
[2024-10-21] MEDS: LEVOTHYROXINE SODIUM 75 MCG TABLET PO (06:09)
[2024-10-21 06:32] LABS: Hematocrit 40.4 % (42.0-52.0); Hemoglobin 12.5 g/dL (14.0-18.0); Immature Platelet Fraction Pct 3.2 % (0.9-11.2); Mean Corpuscular HGB Conc 30.9 g/dl (32-36); Mean Corpuscular Volume 96.9 fl (80-100); Mean Platelet Volume 10.5 fl (7.4-10.4); Platelet Count Result 138 k/mm3 (150-375); Red Blood Count 4.17 M/mm3 (4.6-6.20); Red Cell Distribution Width 13.6 % (11.5-14.5); White Blood Count 8.7 K/mm3 (4.5-10.0)
[2024-10-21 07:40] LABS: Potassium 4.7 mmol/L (3.4-5.0)
[2024-10-21 07:53] LABS: Anion Gap 10 mmol/L (4-12); Blood Urea Nitrogen 43 mg/dL (9-20); Calcium 8.3 mg/dL (8.4-10.2); Carbon Dioxide 22 mmol/L (22-30); Chloride 109 mmol/L (98-107); Estimated CRCL calculation 41 ml/min; Estimated Glomerular Filt Rate 45; Glucose 160 mg/dL (65-110); Magnesium 1.9 mg/dL (1.6-2.3); Sodium 141 mmol/L (137-145)
[2024-10-21] MEDS: predniSONE 20 MG TABLET 60 MG PO (09:54)
[2024-10-21] MEDS: CHOLECALCIFEROL 1,000 UNITS TABLET 2000 UNITS PO (09:55)
[2024-10-21] MEDS: TAMSULOSIN HCL 0.4 MG CAPSULE PO (09:55)
[2024-10-21] MEDS: FAMOTIDINE 20 MG TABLET PO (09:55)
[2024-10-21] MEDS: ASPIRIN 81 MG ENTERIC TABLET PO (09:55)
[2024-10-21] MEDS: MULTIVITAMINS THERAPEUTIC TAB (*BKC) 1 TABLET PO (09:55)
--- NOTE | 2024-10-21 14:37 | PM.IMPN ---
Progress Note: A&P Assessment and Plan (1) Acute kidney injury superimposed on stage 4 chronic kidney disease: Code(s): N17.9 - Acute kidney failure, unspecified; N18.4 - Chronic kidney disease, stage 4 (severe) Status: Acute (2) Hypotension: Qualifiers: Hypotension type: hypotension due to hypovolemia Qualified Code(s): E86.1 - Hypovolemia Code(s): I95.9 - Hypotension, unspecified Status: Acute (3) Acute bronchitis due to respiratory syncytial virus: Code(s): J20.5 - Acute bronchitis due to respiratory syncytial virus Status: Acute (4) Hyperkalemia: Code(s): E87.5 - Hyperkalemia Status: Acute (5) Benign prostatic hyperplasia: Qualifiers: Lower urinary tract symptom presence: symptoms present Lower urinary tract symptom detail: unspecified Qualified Code(s): N40.1 - Benign prostatic hyperplasia with lower urinary tract symptoms Code(s): N40.0 - Benign prostatic hyperplasia without lower urinary tract symptoms Status: Acute Plan Patient presented with mild hypotension that was fluid responsive. Likely due to hypovolemia and subsequently resulting in acute kidney injury on chronic kidney disease with associated mild hyperkalemia. At this time will hold the patient's home diuretic therapy, potassium supplement and ELIANA-inhibitor. Will provide IV fluid hydration and will repeat electrolyte panel in a.m.. Will monitor strict I&O's and daily weight. Will avoid nephrotoxic medications. Patient does have history of BPH will check postvoid residual. Will continue home Flomax. If no evidence of incomplete bladder emptying or urinary retention I will order the patient's oxybutynin otherwise it will be held. Will also check orthostatic vital signs. The patient does have marked wheezing and is significant cough. Given his recent infection with RSV I suspect he has some component of MELTER CLERK bronchitis given he does not have a history of COPD or chronic underlying lung disease. Will give the patient 1 dose of IV Solu-Medrol and then place patient on scheduled prednisone p.o. daily for [address] patient on scheduled DuoNeb. patient presented with hypotension which responded to IVF suggestion most likely due to hypovolemia 2/2 poor PO intake as BP has improved as well slight improvement in his BUN and creatinine, patient was recently diagnosed with RSV and was treated however he does have persisting cough, patient was started on a short course of prednisone, feels little better but the cough is persisting, will monitor and plan, will have PT/OT evaluate the patient. Otherwise patient's home medications will reviewed and reconciled with appropriate adjustments. Patient has been admitted as observation status. Subjective Date/time seen: 10/21/24 14:37 Interval history: Sent in from [facility] due to low blood pressure Narrative: 78-year-old male with a past medical history essential hypertension, hyperlipidemia, type 2 diabetes mellitus, chronic kidney disease stage 4, hypothyroidism and BPH who presented to the ER via EMS from [facility] due to hypotension. The patient reported that he complained to nursing staff that he was lightheaded. His blood pressure was 90/60 when they checked, on EMS arrival to the facility patient's blood pressure was 100/60. Blood pressure was variable in the ER with the lowest blood pressure being 96/75. He reports that ever since he became ill about 6 or 7 weeks ago with upper respiratory symptoms and was subsequently diagnosed with RSV and treated for pneumonia during recent hospitalization 3 8 through 10/14/2024 he has had persistent cough. He states that the cough is deep and intermittently productive of thick white sputum. He has noticed wheezing since the onset of his symptoms and the wheezing has been persistent and has worsened slightly since discharge. He denies a history of COPD and reports that his wheezing did improve somewhat while he was hospitalized while he was getting nebulizer treatments. However he does not receive inhalers or nebulizers at the intermediate. He reports that ever since he has become ill he has had decreased appetite. He denies any nausea or vomiting. Denies any chest pain but has been having some abdominal discomfort when he was coughing hard. He has not had any hypoxia. He thinks that he may have a history of obstructive sleep apnea but has never used a CPAP. He states that since his appetite has been poor he has developed some constipation. He will occasionally feel like he needs to go but then cannot passed stool. He denies sensation of incomplete bladder emptying. He has not noticed a change in a amount of urine output dysuria or hematuria. He has not had any recent change in medications besides antibiotic therapy with Levaquin and doxycycline which he completed yesterday. patient presented with hypotension which responded to IVF suggestion most likely due to hypovolemia 2/2 poor PO intake as BP has improved as well slight improvement in his BUN and creatinine, patient was recently diagnosed with RSV and was treated however he does have persisting cough, patient was started on a short course of prednisone, feels little better but the cough is persisting, will monitor and plan, will have PT/OT evaluate the patient. Review of Systems Review of Systems: 12 systems were reviewed with pertinent positives and negatives per HPI. Except as documented in the HPI, all other systems were reviewed and are negative. Exam Narrative: Elderly frail Patient is comfortable, NAD HEENT: eyes are clear and none icteric LUNGS:CTA HEART: RR S1S2 ABD: BS+, Soft and nontender Lower extremities: no edema SKIN: nonjaundiced Neuro: grossly intact. Objective Data Vital Signs Vital Signs: Vital Signs - 24 hr 10/20/24 20:00 10/20/24 20:46 10/20/24 21:00 Temperature Pulse Rate 83 80 Respiratory Rate 15 15 Blood Pressure Pulse Oximetry Oxygen Delivery Room Air 10/20/24 21:26 10/21/24 02:38 10/21/24 02:41 Temperature 37.1 C Pulse Rate 86 75 79 Respiratory Rate 16 18 18 Blood Pressure 130/63 Pulse Oximetry 94 Oxygen Delivery 10/21/24 05:52 10/21/24 07:30 10/21/24 08:48 Temperature 36.5 C Pulse Rate 80 77 Respiratory Rate 16 20 Blood Pressure 118/67 Pulse Oximetry 96 94 Oxygen Delivery Room Air Room Air 10/21/24 08:48 10/21/24 08:58 Temperature Pulse Rate 77 79 Respiratory Rate 20 20 Blood Pressure Pulse Oximetry Oxygen Delivery Intake/Output Intake/Output: Intake & Output 10/18/24 10/19/24 10/20/24 10/21/24 23:59 23:59 23:59 23:59 Intake Total 1000.0 4057.1 3669.2 2450.8 Output Total 1400 1250 450 Balance 1000.0 2657.1 2419.2 2000.8 Meds/Results Medications: Active Medications Generic Name Dose Route Start Last Admin Trade Name Freq PRN Reason Stop Dose Admin Acetaminophen 1,000 mg 10/19/24 09:06 Acetaminophen 500 Mg Tablet PO Q4H PRN pain Albuterol/Ipratropium 3 ml 10/19/24 02:00 10/21/24 08:48 Ipratropium 0.5 Mg/Albuterol Sulfate 2.5 Mg Ampul.Neb 3 Ml INHALATION 3 ml Q6HRT SHAMEKA Administration Aspirin 81 mg 10/19/24 09:20 10/21/24 09:55 Aspirin 81 Mg Enteric Tablet PO 11/19/24 09:19 81 mg DAILY SHAMEKA Administration Atorvastatin Calcium 10 mg 10/19/24 21:00 10/20/24 20:13 Atorvastatin 10 Mg Tablet PO 10 mg HS SHAMEKA Administration Famotidine 20 mg 10/19/24 09:20 10/21/24 09:55 Famotidine 20 Mg Tablet PO 20 mg DAILY SHAMEKA Administration Guaifenesin 100 mg 10/19/24 09:06 Guaifenesin 200 Mg/10 Ml Udc PO Q4H PRN cough Lactated Ringer's 1,000 mls @ 125 mls/hr 10/18/24 17:35 10/21/24 11:30 Lr - Lactated Ringers Iv IV CONT 125 mls/hr .Q8H SHAMEKA Administration Levothyroxine Sodium 75 mcg 10/19/24 09:20 10/21/24 06:09 Levothyroxine Sodium 75 Mcg Tablet PO 75 mcg DAILY@0630 [facility] Administration Multivitamins Therapeutic 1 tablet 10/19/24 09:20 10/21/24 09:55 Multivitamins Therapeutic Tab (*Bkc) PO 1 tablet DAILY [facility] Administration Ondansetron HCl 4 mg 10/19/24 09:06 Ondansetron Hcl Odt 4 Mg Tablet PO Q8H PRN nausea and vomiting Prednisone 60 mg 10/19/24 08:00 10/21/24 09:54 Prednisone 20 Mg Tablet PO 60 mg DAILY@0800 [facility] Administration Senna 8.6 mg 10/19/24 09:06 Sennosides 8.6 Mg Tablet PO BID PRN constipation Tamsulosin HCl 0.4 mg 10/19/24 09:20 10/21/24 09:55 Tamsulosin Hcl 0.4 Mg Capsule PO 0.4 mg DAILY [facility] Administration Vitamin D 2,000 units 10/19/24 09:20 10/21/24 09:55 Cholecalciferol 1,000 Units Tablet PO 2,000 units DAILY SHAMEKA Administration Radiology Results: ITS Impressions Chest X-Ray 10/18/24 15:27 IMPRESSION: No focal infiltrate or effusion. Labs Labs: Laboratory Results - last 24 hr 10/21/24 06:07 WBC 8.7 RBC 4.17 L Hgb 12.5 L Hct 40.4 L MCV 96.9 MCH 30.0 MCHC 30.9 L RDW 13.6 Plt Count 138 L MPV 10.5 H % Immature Plt Fraction 3.2 Sodium 141 Potassium 4.7 Chloride 109 H Carbon Dioxide 22 Anion Gap 10 BUN 43 H Creatinine 1.51 H Estim Creat Clear Calc 41 Estimated GFR 45 L Glucose 160 H Calcium 8.3 L Magnesium 1.9 Quality VTE Prophylaxis VTE prophylaxis: mechanical ordered (SCDs)
[2024-10-21] MEDS: ATORVASTATIN 10 MG TABLET PO (20:30)
[2024-10-21] MEDS: ACETAMINOPHEN 500 MG TABLET 1000 MG PO (20:30)
[2024-10-22 02:59] VITALS: PULSE 74; RESP 28
[2024-10-22 06:00] VITALS: BP 131/74; PULSE 72; RESP 16; O2SAT 97
[2024-10-22] MEDS: LEVOTHYROXINE SODIUM 75 MCG TABLET PO (06:04)
[2024-10-22] MEDS: LACTATED RINGERS 1,000 ML 125 ML IV CONT ×2 (06:04→08:33)
[2024-10-22 06:12] LABS: Hemoglobin 12.7 g/dL (14.0-18.0); Immature Platelet Fraction Pct 3.9 % (0.9-11.2); Mean Corpuscular Hemoglobin 30.5 pg (26-34); Mean Corpuscular Volume 98.3 fl (80-100); Mean Platelet Volume 10.9 fl (7.4-10.4); Platelet Count Result 127 k/mm3 (150-375); Red Blood Count 4.17 M/mm3 (4.6-6.20); Red Cell Distribution Width 13.7 % (11.5-14.5); White Blood Count 8.2 K/mm3 (4.5-10.0)
[2024-10-22 07:42] LABS: Anion Gap 11 mmol/L (4-12); Blood Urea Nitrogen 41 mg/dL (9-20); Calcium 8.8 mg/dL (8.4-10.2); Carbon Dioxide 25 mmol/L (22-30); Chloride 104 mmol/L (98-107); Estimated CRCL calculation 46 ml/min; Estimated Glomerular Filt Rate 48; Glucose 125 mg/dL (65-110); Magnesium 1.9 mg/dL (1.6-2.3); Potassium 4.5 mmol/L (3.4-5.0); Sodium 140 mmol/L (137-145)
[2024-10-22 08:00] VITALS: O2SAT 96
[2024-10-22] MEDS: TAMSULOSIN HCL 0.4 MG CAPSULE PO (08:32)
[2024-10-22] MEDS: ASPIRIN 81 MG ENTERIC TABLET PO (08:32)
[2024-10-22] MEDS: predniSONE 20 MG TABLET 60 MG PO (08:32)
[2024-10-22] MEDS: FAMOTIDINE 20 MG TABLET PO (08:32)
[2024-10-22] MEDS: CHOLECALCIFEROL 1,000 UNITS TABLET 2000 UNITS PO (08:32)
[2024-10-22] MEDS: MULTIVITAMINS THERAPEUTIC TAB (*BKC) 1 TABLET PO (08:32)
--- NOTE | 2024-10-22 10:41 | PCRCNOTE ---
Window of time for administration has passed. See next scheduled administration.
--- NOTE | 2024-10-22 13:30 | PM.DS ---
DS: Admitting Diagnosis Discharge Date 10/22/2024 Admitting Diagnosis Hypotension DS: Discharge Diagnosis Discharge Diagnosis (1) Acute kidney injury superimposed on stage 4 chronic kidney disease: Code(s): N17.9 - Acute kidney failure, unspecified; N18.4 - Chronic kidney disease, stage 4 (severe) Status: Acute (2) Hypotension: Qualifiers: Hypotension type: hypotension due to hypovolemia Qualified Code(s): E86.1 - Hypovolemia Code(s): I95.9 - Hypotension, unspecified Status: Acute (3) Acute bronchitis due to respiratory syncytial virus: Code(s): J20.5 - Acute bronchitis due to respiratory syncytial virus Status: Acute (4) Hyperkalemia: Code(s): E87.5 - Hyperkalemia Status: Acute (5) Benign prostatic hyperplasia: Qualifiers: Lower urinary tract symptom presence: symptoms present Lower urinary tract symptom detail: unspecified Qualified Code(s): N40.1 - Benign prostatic hyperplasia with lower urinary tract symptoms Code(s): N40.0 - Benign prostatic hyperplasia without lower urinary tract symptoms Status: Acute DS: Summary Hospital Course Hospital Course: This is an 78-year-old male who presents to the ED for evaluation of hypotension and decreased p.o. intake. Patient was recently admitted for pneumonia on RSV infection. Discharged on 10/14/2024. Patient completed his antibiotics. He reported some lightheadedness and dizziness. Blood pressure was in 90s. No other complaints. In the ED evaluation he was afebrile. He had mild leukocytosis of 10.1 hemoglobin of 14.4. Creatinine of 2.59 suggestive acute kidney injury baseline round 1.8. Patient was admitted for further treatment with IV hydration. His diuretic was held patient had marked wheezing and significant cough on admission. Patient was recently diagnosed with RSV and hence some component of RSV bronchitis suspected. Chest x-ray showed no in focal infiltrate or effusion. Patient was placed on steroid. Along with scheduled bronchodilators. Patient's blood pressure improved with IV fluids. DESMOND resolved and back to baseline by the time of discharge. Creatinine and at 1.4 at discharge. PT OT evaluated the patient. Doing well on therapy and will be sent [facility] treatment. His home medications for blood pressure will be held except for lower dose of amlodipine for blood pressure control 5 mg daily Time Spent with Patient Time attestation: Total time spent providing and/or coordinating discharge services: 35 minutes Exam Narrative: Elderly frail Patient is comfortable, NAD HEENT: eyes are clear and none icteric LUNGS:CTA HEART: RR S1S2 ABD: BS+, Soft and nontender Lower extremities: no edema SKIN: nonjaundiced Neuro: grossly intact. DS: Data Data Completed and Pending Labs on day of discharge: Labs from last 24 hours 10/22/24 10/22/24 07:12 05:34 WBC 8.2 RBC 4.17 L Hgb 12.7 L Hct 41.0 L MCV 98.3 MCH 30.5 MCHC 31.0 L RDW 13.7 Plt Count 127 L MPV 10.9 H % Immature Plt Fraction 3.9 Sodium 140 Potassium 4.5 Chloride 104 Carbon Dioxide 25 Anion Gap 11 BUN 41 H Creatinine 1.43 H Estim Creat Clear Calc 46 Estimated GFR 48 L Glucose 125 H Calcium 8.8 Magnesium 1.9 Imaging Radiologist's impression: ITS Impressions Chest X-Ray 10/18/24 15:27 IMPRESSION: No focal infiltrate or effusion. Discharge Plan Discharge Attending physician on discharge: Jasper Peoples Discharging Clinician: Jasper Peoples Anticipated Discharge Date/Time: 10/22/24 13:35 Patient Disposition: SNF Activity: as tolerated Diet: heart healthy Discharge Instructions: Weight daily Patient Language: Turkmen Stand Alone Forms: General Discharge Information, Assisted Discharge Follow-up/Referrals: Gianna,MD Raymond [Primary Care Provider] - 1 Week Discharge Medications: New ipratropium-albuterol 0.5 mg-3 mg(2.5 mg base)/3 mL Solution For Nebulization 3 ml inhalation Q6HRT Qty: 30 0RF Continued atorvastatin 10 mg tablet 10 mg PO HS famotidine 20 mg tablet 20 mg PO DAILY levothyroxine 75 mcg tablet 75 mcg PO DAILY ondansetron HCl 4 mg tablet 4 mg PO Q8H PRN (Reason: nausea and vomiting) oxybutynin chloride 5 mg tablet 5 mg PO DAILY tamsulosin 0.4 mg capsule 0.4 mg PO DAILY cholecalciferol (vitamin D3) [D3 DOTS] 50 mcg (2,000 unit) tablet 50 mcg PO DAILY guaifenesin [Tussin Chest Congestion] 100 mg/5 mL liquid 100 mg PO Q4H PRN (Reason: cough) sennosides [senna] 8.6 mg tablet 8.6 mg PO BID PRN (Reason: constipation) multivitamin [Daily Multi-Vitamin] Tablet 1 tablet PO DAILY aspirin 81 mg capsule 81 mg PO DAILY acetaminophen 500 mg capsule 1,000 mg PO Q4H PRN (Reason: pain) Changed amlodipine 10 mg tablet 5 mg PO DAILY Qty: 15 0RF Discontinued benazepril 20 mg tablet 20 mg PO DAILY furosemide 20 mg tablet 20 mg PO DAILY potassium chloride 10 mEq capsule, extended release 10 meq PO .COMPLEX Rx Instructions: 10 mEq orally every other day; Other Ambulatory Orders: Basic Metabolic Panel (Routine) Timeframe: 1 Week Location: Determined by Patient Ordered By: Jasper Peoples Complete Blood Count with Diff (Routine) Timeframe: 1 Week Location: Determined by Patient Ordered By: Jasper Peoples Date of admission: 10/19/24 09:13 Primary Care Provider: GiannaRaymond Admitting Provider: Jacy Santoyo Attending physician on admission: Jacy Santoyo Condition: Improved
[2024-10-22 14:00] VITALS: BP 140/89; PULSE 112; RESP 95; TEMP 37.1; O2SAT 95
[2024-10-22] MEDS: IPRATROPIUM 0.5 MG/ALBUTEROL SULFATE 2.5 MG AMPUL.NEB 3 ML INHALATION (14:06)
[2024-10-22 14:07] VITALS: PULSE 88; RESP 20
--- NOTE | 2024-10-22 17:39 | PC.NURSE ---
Report given to EMS for patient to be transferred back to [facility] in [place]. During report, POLST form reviewed and patient is full code per paperwork on file. Chart states DNR that was changed on 10/18/24. freight coordinator notified, EMS updated to follow FULL Code status. Patient in agreement with full code.
== END 2024-10-22 17:40 | DRG 684 ==
LOC: ANHED 17:33 → ANH3MEDSUR 18:44
PROVIDERS: Emergency Medicine; Family Medicine; Internal Medicine; Admitting Provider Hospitalist; Emergency Provider Emergency Medicine; PCP Internal Medicine; Visit Provider Internal Medicine
DX: N17.9 Acute kidney failure, unspecified (principal); J20.5 Acute bronchitis due to respiratory syncytial virus; N18.4 Chronic kidney disease, stage 4 (severe); E86.1 Hypovolemia; E87.5 Hyperkalemia; I95.9 Hypotension, unspecified; N40.1 Benign prostatic hyperplasia with lower urinary tract symptoms
CPT/HCPCS: 36415; 71045; 80048; 80053; 81003; 83735; 85025; 85027; 85055; 87637; 93005; 94640; 96361; 96374; 97110; 97116; 97161; 97165; 97530; 97535; 99285; A9270; G0378; J2919; J7030; J7120; J7512